=== PATIENT | male | born 1935 | race Caucasian/White ===

== ENCOUNTER → 2016-12-04 | Outpatient (CLI) | payer MEDICARE ==
[2015-11-11 18:08] VITALS: BP 173/85
[~2016-12-04] MED LIST: ACET325T9 PO; AMIO200T2 PO; AMLO5TAB2 PO; ASPI325T4 PO; CAPT50TA2 PO; DOCU100C5 PO; FAMO20TA5 PO; HYDR-2666 PO; HYDR25TA9 PO; MULT1TAB6 PO; OMEG1CAP6 PO; POTA20TA4 PO; SIMV20TA3 PO
[2016-12-04 05:54] LABS: ALBUMIN/GLOBULIN RATIO 1.3 (1.0-1.7); CALCIUM 9.1 mg/dL (8.5-10.1); CREATININE 0.9 mg/dL (0.7-1.3); GFR 80.6; POTASSIUM 3.7 mmol/L (3.5-5.1); TOTAL BILIRUBIN 0.5 mg/dL (0.2-1.0)
[2016-12-04 05:59] LABS: CHOLESTEROL/HDL RATIO 2.8
== END | disposition home or self-care (01) ==
LOC: LAB 04:48
PROVIDERS: ATTEND Family Medicine
DX: E78.5 Hyperlipidemia, unspecified (principal)
CPT/HCPCS: 36415; 80053; 80061; 83036

== ENCOUNTER → 2017-12-27 | Outpatient (CLI) | payer MEDICARE | END | disposition home or self-care (01) | LOC: ECHO 08:32 | DX: I48.0 Paroxysmal atrial fibrillation (principal); I08.0 Rheumatic disorders of both mitral and aortic valves; E78.5 Hyperlipidemia, unspecified | CPT/HCPCS: 93306 ==

== ENCOUNTER → 2019-01-02 | Outpatient (CLI) | payer MEDICARE ==
[2015-11-11 18:08] VITALS: BP 173/85
[~2019-01-02] MED LIST changes: -AMIO200T2 PO; +AMIO200T4 PO; +AMLO5TAB10 PO; -AMLO5TAB2 PO; -ASPI325T4 PO; +ASPI325T8 PO; +DOCU100C28 PO; -DOCU100C5 PO; +HYDR-2145 PO; -HYDR-2666 PO; +HYDR-2761 PO; -HYDR25TA9 PO; +ORPH100T PO
--- NOTE | 2019-01-02 12:33 | CARD ---
MR#: [id number] Date of Study: 01/02/2019 Ordering Physician: BAMBI TAY, Referring Physician: BAMBI TAY, Tech: Priscilla Marquez APPROVED REPORT EXAM: Two-dimensional and M-mode echocardiogram with Doppler and color Doppler. Other Information Quality : AverageHR: 65bpm INDICATION Atrial Fibrillation RISK FACTORS Hypertension Hyperlipidemia 2D DIMENSIONS Left Atrium(2D)3.7 (1.6-4.0cm)IVSd1.1 (0.7-1.1cm) Aortic Root(2D)3.0 (2.0-3.7cm)LVDd5.0 (3.9-5.9cm) LVOT Diameter2.0 (1.8-2.4cm)PWd1.5 (0.7-1.1cm) LVDs2.9 (2.5-4.0cm)FS (%) 42.3 % SV87.4 ml Aortic Valve AoV Peak Derek.133.3cm/sAoV VTI28.0cm AO Peak GR.7.1mmHgLVOT Peak Derek.114.2cm/s AO Mean GR.4mmHgAVA (VMAX)2.60cm2 Mitral Valve MV E Eiumbzhv06.7cm/sMV DECEL [id number] MV A Guyhbely52.0cm/sE/A Ratio0.7 Pulmonary Valve PV Peak Ohygfgvy80.6cm/s Pulmonary Vein S1 Tabzxzpf80.7cm/sD2 Ywgxyxzg09.1cm/s PVa [id number] LEFT VENTRICLE The left ventricle is normal size. There is mild concentric left ventricular hypertrophy. The left ve ntricular systolic function is normal. Left ventricular ejection fraction is 55-60%. There is normal LV segmental wall motion. Transmitral Doppler flow pattern is Grade I-abnormal relaxation pattern. RIGHT VENTRICLE The right ventricle is normal size. There is normal right ventricular wall thickness. The right ventr icular systolic function is normal. ATRIA The left atrium size is normal. The right atrium size is normal. The interatrial septum is intact wit h no evidence for an atrial septal defect or patent foramen ovale as noted on 2-D or Doppler imaging. AORTIC VALVE The aortic valve is thickened but opens well. Doppler and Color Flow revealed trace aortic regurgitat ion. There is no significant aortic valvular stenosis. MITRAL VALVE The mitral valve is normal in structure and function. There is no evidence of mitral valve prolapse. There is no mitral valve stenosis. Doppler and Color-flow revealed trace to mild mitral regurgitation . TRICUSPID VALVE The tricuspid valve is not well visualized. Doppler and Color Flow revealed no tricuspid valve regurg itation noted. There is no tricuspid valve stenosis. PULMONIC VALVE The pulmonic valve is not well visualized. Doppler and Color Flow revealed trace pulmonic valvular re gurgitation. GREAT VESSELS The aortic root is normal in size. The IVC was not visualized. PERICARDIAL EFFUSION There is no evidence of significant pericardial effusion. Critical Notification Critical Value: No <Conclusion> The left ventricle is normal size. The left ventricle is normal size. The left ventricular systolic function is normal. Left ventricular ejection fraction is 55-60%. There is mild concentric left ventricular hypertrophy. There is no significant aortic valvular stenosis. Doppler and Color Flow revealed trace aortic regurgitation. Doppler and Color-flow revealed trace to mild mitral regurgitation. Doppler and Color Flow revealed no tricuspid valve regurgitation noted. Signed by : Antwan Murillo MD Electronically Approved : 01/02/2019 12:33:03
== END | disposition home or self-care (01) ==
LOC: ECHO 09:58
PROVIDERS: ATTEND Internal Medicine Cardiovascular Disease
DX: I11.9 Hypertensive heart disease without heart failure (principal); I48.0 Paroxysmal atrial fibrillation; E78.5 Hyperlipidemia, unspecified
CPT/HCPCS: 93306

== ENCOUNTER 2019-01-03 19:22 | Emergency (ER) | payer MEDICARE ==
[~2019-01-03] VITALS: Ht 177.8 cm; Wt 74.8 kg
[~2019-01-03 19:22] MED LIST changes: -ORPH100T PO
[2019-01-03] MEDS ORDERED: fentaNYL PF VIAL 100 MCG/2 ML VIAL IV ONE (19:45)
[2019-01-03] MEDS ORDERED: ASPIRIN 325 MG TABLET PO ONE (19:45)
--- NOTE | 2019-01-03 19:50 | PHYS DOC ---
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 He reports that the pain was dull and minor in nature until tonight when he went to dinner and the pain increased and became sharp. He denies any trauma to that shoulder. He reports that he had left shoulder problems about a year ago and went to physical therapy those problems resolved. He also reports that the pain began to radiate to his neck and down his arm. He reports that he has a past medical history of hypertension and hypercholesterolemia. He also takes Tylenol and [place] regularly for back pain. He last took Tylenol about 2 hours ago and reports that he took [place] this morning. He denies any numbness or tingling in his left hand or elbow. Review of Systems Review of Systems Constitutional: Denies fever or chills [] Eyes: Denies change in visual acuity, redness, or eye pain [] HENT: Denies nasal congestion or sore throat [] Respiratory: Denies cough or shortness of breath [] Cardiovascular: Denies chest pain or palpitations [] GI: Denies abdominal pain, nausea, vomiting, and diarrhea [] : Denies dysuria or hematuria [] Musculoskeletal: Reports back pain and left shoulder pain Integument: Denies rash or skin lesions [] Neurologic: Denies headache, focal weakness or sensory changes [] Complete systems were reviewed and found to be within normal limits, except as documented in this note. Current Medications Current Medications Current Medications Medications (Trade) Dose Ordered Sig/Richi Start Time Stop Time Status Last Admin Dose Admin Acetaminophen/ Hydrocodone Bitart (Lortab 5/325) 1 tab 1X ONCE 01/03/19 22:00 01/03/19 22:01 DC 01/03/19 21:50 1 TAB Aspirin (Rhianna Aspirin) 325 mg 1X ONCE 01/03/19 19:45 01/03/19 19:46 DC Fentanyl Citrate (Fentanyl 2ml Vial) 50 mcg 1X ONCE 01/03/19 19:45 01/03/19 19:46 DC 01/03/19 20:30 50 MCG Allergies Allergies Allergies Coded Allergies Type Severity Reaction Last Updated Verified No Known Drug Allergies 08/29/13 No Physical Exam Physical Exam Constitutional: Well developed, well nourished, no acute distress, non-toxic appearance. [] HENT: Normocephalic, atraumatic, nose normal. [] Eyes: Conjunctiva normal, no discharge. [] Neck: Normal range of motion, no tenderness. [] Cardiovascular: Heart rate regular rhythm, no murmur [] Lungs & Thorax: Bilateral breath sounds clear to auscultation [] Abdomen: Bowel sounds normal, soft. [] Skin: Warm, dry, no erythema, no rash. [] Back: Chronic tenderness in the back Extremities: Tenderness to palpation in the left shoulder with decreased ROM, no gross deformities, no edema or erythema [] Neurologic: Alert and oriented X 3, no focal deficits noted. [] Psychologic: Affect normal, judgement normal, mood normal. [] Current Patient Data Vital Signs Vital Signs Date Time Temp Pulse Resp B/P (MAP) Pulse Ox O2 Delivery O2 Flow Rate FiO2 01/03/19 22:30 62 18 126/61 (82) 95 Room Air 01/03/19 19:34 97.6 97.6 Lab Values Laboratory Tests Test 01/03/19 19:42 01/03/19 22:00 White Blood Count 7.4 x10^3/uL (4.0-11.0) Red Blood Count 4.26 x10^6/uL (4.30-5.70) L Hemoglobin 13.7 g/dL (13.0-17.5) Hematocrit 40.7 % (39.0-53.0) Mean Corpuscular Volume 96 fL (79-100) Mean Corpuscular Hemoglobin 32 pg (25-35) Mean Corpuscular Hemoglobin Concent 34 g/dL (31-37) Red Cell Distribution Width 13.2 % (11.5-14.5) Platelet Count 162 x10^3/uL (140-400) Neutrophils (%) (Auto) 73 % (31-73) Lymphocytes (%) (Auto) 15 % (24-48) L Monocytes (%) (Auto) 9 % (0-9) Eosinophils (%) (Auto) 3 % (0-3) Basophils (%) (Auto) 0 % (0-3) Neutrophils # (Auto) 5.4 x10^3uL (1.8-7.7) Lymphocytes # (Auto) 1.1 x10^3/uL (1.0-4.8) Monocytes # (Auto) 0.6 x10^3/uL (0.0-1.1) Eosinophils # (Auto) 0.2 x10^3/uL (0.0-0.7) Basophils # (Auto) 0.0 x10^3/uL (0.0-0.2) Prothrombin Time 12.8 SEC (11.7-14.0) Prothrombin Time INR 1.0 (0.8-1.1) Sodium Level 139 mmol/L (136-145) Potassium Level 3.9 mmol/L (3.5-5.1) Chloride Level 103 mmol/L (98-107) Carbon Dioxide Level 25 mmol/L (21-32) Anion Gap 11 (6-14) Blood Urea Nitrogen 27 mg/dL (8-26) H Creatinine 1.1 mg/dL (0.7-1.3) Estimated GFR (Cockcroft-Gault) 63.6 BUN/Creatinine Ratio 25 (6-20) H Glucose Level 113 mg/dL (70-99) H Calcium Level 8.8 mg/dL (8.5-10.1) Magnesium Level 2.0 mg/dL (1.8-2.4) Total Bilirubin 0.3 mg/dL (0.2-1.0) Aspartate Amino Transferase (AST) 14 U/L (15-37) L Alanine Aminotransferase (ALT) 21 U/L (16-63) Alkaline Phosphatase 84 U/L (46-116) Creatine Kinase 50 U/L (39-308) Creatine Kinase MB (Mass) 1.7 ng/mL (0.0-3.6) Creatine Kinase MB Relative Index % (0-4) Troponin I Quantitative < 0.017 ng/mL (0.000-0.055) < 0.017 ng/mL (0.000-0.055) QN-Gdr-C-Type Natriuretic Peptide 51 pg/mL (0-449) Total Protein 6.5 g/dL (6.4-8.2) Albumin 3.7 g/dL (3.4-5.0) Albumin/Globulin Ratio 1.3 (1.0-1.7) Lipase 140 U/L (73-393) Laboratory Tests 01/03/19 19:42 Laboratory Tests 01/03/19 19:42 EKG EKG EKG @1927 Sinus rhythm, rate of 63 bpm, prolonged TN interval, right bundle branch block, no ST elevation Radiology/Procedures Radiology/Procedures 2 view right shoulder x-ray ED preliminary read shows arthritic changes consistent with chronic damage, no acute pathology PROCEDURE: SHOULDER 2+V LEFT EXAM: 3 views left shoulder DATE: 01/03/2019 7:42 PM INDICATION: ER PATIENT. LEFT SHOULDER PAIN X4 DAYS. NKI. NO PRIORS COMPARISON: No Prior FINDINGS/IMPRESSION Mild left AC joint osteoarthritis. Decreased bone mineral density. No evidence of acute fracture or dislocation. Electronically signed by: Adonis Ramirez MD (01/04/2019 6:02 AM) [facility] Course & Med Decision Making Course & Med Decision Making Pertinent Labs and Imaging studies reviewed. (See chart for details) Patient is an 83-year-old male is presenting with 1 week history of left shoulder pain. EKG and troponins within normal limits. Pain addressed. Preliminary read of left shoulder x-ray shows chronic arthritic changes. Discussed rest, ice, compression, and elevation management of arthritic pain and follow-up orthopedics if the pain does not go away. Patient stable for discharge with outpatient follow-up with PCP/Orthopedics. Discussed findings and plan with patient and family, who acknowledge understanding and agreement. Dragon Disclaimer Dragon Disclaimer This electronic medical record was generated, in whole or in part, using a voice recognition dictation system. Departure Departure Impression: Primary Impression: Shoulder pain, left Additional Impression: Arthritis Disposition: 01 HOME, SELF-CARE Condition: STABLE Referrals: DILEEP SORIA MD (PCP) GAVIN ALBERT MD Patient Instructions: Arthritis, Degenerative-Brief, Shoulder Pain, Easy-to- Read Scripts Orphenadrine Citrate (ORPHENADRINE CITRATE) 100 Mg Tablet.er 100 MG PO BID PRN for MUSCLE PAIN, #14 Prov: JULIANNE LINK DO 01/03/19 Problem Qualifiers Primary Impression: Shoulder pain, left Chronicity: unspecified Qualified Codes: M25.512 - Pain in left shoulder JULIANNE LINK DO Jan 03, 2019 19:50
[2019-01-03 19:53] LABS: BASO % 0 % (0-3); EOS # 0.2 x10^3/uL (0.0-0.7); EOS % 3 % (0-3); HEMATOCRIT 40.7 % (39.0-53.0); HEMOGLOBIN 13.7 g/dL (13.0-17.5); LYMPH # 1.1 x10^3/uL (1.0-4.8); LYMPH % 15 % (24-48); MEAN CORPUSCULAR HEMOGLOBIN 32 pg (25-35); MEAN CORPUSCULAR HGB CONC 34 g/dL (31-37); MEAN CORPUSCULAR VOLUME 96 fL (79-100); MONO # 0.6 x10^3/uL (0.0-1.1); MONO % 9 % (0-9); NEUT # 5.4 x10^3uL (1.8-7.7); NEUT % 73 % (31-73); PLATELET COUNT 162 x10^3/uL (140-400); RED BLOOD COUNT 4.26 x10^6/uL (4.30-5.70); RED CELL DISTRIBUTION WIDTH 13.2 % (11.5-14.5); WHITE BLOOD COUNT 7.4 x10^3/uL (4.0-11.0)
[2019-01-03 20:05] LABS: PROTHROMBIN TIME PATIENT 12.8 SEC (11.7-14.0)
[2019-01-03 20:15] LABS: CALCIUM 8.8 mg/dL (8.5-10.1); CREATININE 1.1 mg/dL (0.7-1.3); GFR 63.6; POTASSIUM 3.9 mmol/L (3.5-5.1)
[2019-01-03 20:19] LABS: ALBUMIN 3.7 g/dL (3.4-5.0); ALBUMIN/GLOBULIN RATIO 1.3 (1.0-1.7); TOTAL BILIRUBIN 0.3 mg/dL (0.2-1.0); TOTAL PROTEIN 6.5 g/dL (6.4-8.2)
[2019-01-03 20:22] LABS: CREATINE KINASE 50 U/L (39-308)
[2019-01-03] MEDS ORDERED: HYDROcodone/APAP 5/325MG 1 TAB TABLET PO ONE (22:00)
[2019-01-03 22:30] VITALS: BP 126/61
[2019-01-03] MEDS ORDERED: ORPH100T PO (22:45)
--- NOTE | 2019-01-04 06:06 | RAD ---
EXAM: 3 views left shoulder DATE: 01/03/2019 7:42 PM INDICATION: ER PATIENT. LEFT SHOULDER PAIN X4 DAYS. NKI. NO PRIORS COMPARISON: No Prior FINDINGS/IMPRESSION Mild left AC joint osteoarthritis. Decreased bone mineral density. No evidence of acute fracture or dislocation. Electronically signed by: Adonis Ramirez MD (01/04/2019 6:02 AM) [facility]
--- NOTE | 2019-01-04 14:47 | EKG ---
[facility] [address] [place] [address] Test Date: 2019-01-03 Test Time: 19:27:53 Pat Name: JEF SOTO Department: Room: Gender: M Health Tech: : 1935 Requested By: JULIANNE LINK Order Number: [id number] Reading MD: Alexsander Alonzo Measurements Intervals [place] Rate: 63 P: 30 VT: 228 QRS: -63 QRSD: 138 T: 16 QT: 478 QTc: 493 Interpretive Statements SINUS RHYTHM PROLONGED VT INTERVAL ABNORMAL LEFT AXIS DEVIATION LEFT ANTERIOR FASCICULAR BLOCK RIGHT BUNDLE BRANCH BLOCK BIFASCICULAR BLOCK ABNORMAL ECG Electronically Signed On 01-13-2019 12:35:01 CDT by Alexsander Alonzo
== END 2019-01-03 23:16 | disposition home or self-care (01) ==
LOC: ER 19:22
DX: M19.012 Primary osteoarthritis, left shoulder (principal); M54.2 Cervicalgia; I48.91 Unspecified atrial fibrillation; K21.9 Gastro-esophageal reflux disease without esophagitis; I10 Essential (primary) hypertension; E78.00 Pure hypercholesterolemia, unspecified
CPT/HCPCS: 36415; 73030; 80053; 82553; 83690; 83735; 83880; 84484; 85025; 85610; 93005; 96374; 99285; J3010

== ENCOUNTER 2020-09-18 21:33 | Inpatient (IN) | payer MEDICARE, OTHER ==
[~2020-09-18] VITALS: Ht 177.8 cm; Wt 77.7 kg
[~2020-09-18 21:33] MED LIST changes: -AMIO200T4 PO; +AMIO200T6 PO; +AMLO-186 PO; -AMLO5TAB10 PO; +FERR325T14 PO; +FINA5TAB4 PO; +FLUT9.9S NS; +LISI-130 PO; +ORPH100T PO; +PEG15DRO4 EACHEYE; +POLY17PO29 PO; +PRED20TA PO; +SIMV20TA18 PO; -SIMV20TA3 PO; +TAMS0.4C97 PO
--- NOTE | 2020-09-18 21:48 | PHYS DOC ---
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 Pain began about 4 PM today. Patient describes 10 out of 10 abdominal pain worse on the left side as well as lumbar back pain that is not as severe. Patient is extremely hard of hearing therefore history, physical review of systems are extremely difficult to obtain due to his inability to hear and answer questions Review of Systems: Review of Systems: Constitutional: Denies fever or chills. [] Eyes: Denies change in visual acuity. [] HENT: Denies nasal congestion or sore throat. [] Respiratory: Denies cough or shortness of breath. [] Cardiovascular: Denies chest pain or edema. [] GI: Complains abdominal pain and nausea but no vomiting, bloody stools or diarrhea. [] : Denies dysuria. [] Musculoskeletal: Complains of back pain but no joint pain. [] Integument: Denies rash. [] Neurologic: Denies headache, focal weakness or sensory changes. [] Endocrine: Denies polyuria or polydipsia. [] Lymphatic: Denies swollen glands. [] Psychiatric: Denies depression or anxiety. [] Heart Score: Risk Factors: Risk Factors: DM, Current or recent (<one month) smoker, HTN, HLP, family history of CAD, obesity. Risk Scores: Score 0 - 3: 2.5% MACE over next 6 weeks - Discharge Home Score 4 - 6: 20.3% MACE over next 6 weeks - Admit for Clinical Observation Score 7 - 10: 72.7% MACE over next 6 weeks - Early Invasive Strategies Current Medications: Current Medications Medications (Trade) Dose Ordered Sig/Richi Start Time Stop Time Status Last Admin Dose Admin Morphine Sulfate (Morphine Sulfate) 4 mg 1X ONCE 09/18/20 21:45 09/18/20 21:46 UNV Ondansetron HCl (Zofran) 4 mg 1X ONCE 09/18/20 21:45 09/18/20 21:46 UNV Allergies: Allergies: Allergies Coded Allergies Type Severity Reaction Last Updated Verified No Known Drug Allergies 08/29/13 No Physical Exam: PE: Constitutional: Well developed, well nourished, mild distress due to pain HENT: Normocephalic, atraumatic, bilateral external ears normal, no trismus nose normal. [] Eyes: PERRLA, EOMI, conjunctiva normal, no discharge. [] Neck: Normal range of motion, no tenderness, supple, no stridor. [] Cardiovascular:Heart rate regular rhythm, peripheral pulse intact cap refill is brisk Lungs & Thorax: Bilateral breath sounds clear to auscultation [] Abdomen: Soft with tenderness in the left side without guarding or rebound possible distended bladder no pulsatile masses. [] exam: Hanna in place with purulent drainage and hypospadias Skin: Warm, dry, no erythema, no rash. [] Back: No tenderness, no CVA tenderness. [] Extremities: No tenderness, no cyanosis, no clubbing, ROM intact, no edema. [] Neurologic: Alert and oriented X 3, normal motor function, normal sensory function, no focal deficits noted. [] Psychologic: Affect normal, judgement normal, mood normal. [] Current Patient Data: Labs: Laboratory Tests Test 09/18/20 21:50 09/18/20 22:45 White Blood Count 18.4 x10^3/uL Red Blood Count 4.39 x10^6/uL Hemoglobin 12.7 g/dL Hematocrit 38.7 % Mean Corpuscular Volume 88 fL Mean Corpuscular Hemoglobin 29 pg Mean Corpuscular Hemoglobin Concent 33 g/dL Red Cell Distribution Width 15.6 % Platelet Count 260 x10^3/uL Neutrophils (%) (Auto) 91 % Lymphocytes (%) (Auto) 3 % Monocytes (%) (Auto) 5 % Eosinophils (%) (Auto) 0 % Basophils (%) (Auto) 0 % Neutrophils # (Auto) 16.8 x10^3/uL Lymphocytes # (Auto) 0.6 x10^3/uL Monocytes # (Auto) 1.0 x10^3/uL Eosinophils # (Auto) 0.0 x10^3/uL Basophils # (Auto) 0.0 x10^3/uL Segmented Neutrophils % 94 % Band Neutrophils % 1 % Lymphocytes % 3 % Monocytes % 2 % Toxic Granulation Mod Platelet Estimate Adequate Sodium Level 135 mmol/L Potassium Level 3.8 mmol/L Chloride Level 100 mmol/L Carbon Dioxide Level 22 mmol/L Anion Gap 13 Blood Urea Nitrogen 46 mg/dL Creatinine 1.3 mg/dL Estimated GFR (Cockcroft-Gault) 52.2 BUN/Creatinine Ratio 35 Glucose Level 162 mg/dL Lactic Acid Level 1.1 mmol/L Calcium Level 9.0 mg/dL Total Bilirubin 0.5 mg/dL Aspartate Amino Transf (AST/SGOT) 22 U/L Alanine Aminotransferase (ALT/SGPT) 32 U/L Alkaline Phosphatase 116 U/L Total Protein 6.6 g/dL Albumin 2.7 g/dL Albumin/Globulin Ratio 0.7 Lipase 52 U/L Urine Collection Type U cath Urine Color Nia Urine Clarity Turbid Urine pH 8.5 Urine Specific [place] 1.025 Urine Protein >=300 mg/dL Urine Glucose (UA) Negative mg/dL Urine Ketones (Stick) Negative mg/dL Urine Blood Negative Urine Nitrite Positive Urine Bilirubin Negative Urine Urobilinogen Dipstick 1.0 mg/dL Urine Leukocyte Esterase Large Urine RBC 6-10 /HPF Urine WBC Tntc /HPF Urine Squamous Epithelial Cells None /LPF Urine Amorphous Sediment Present /HPF Urine Bacteria Many /HPF Urine Granular Casts Occasional /HPF Current Medications Medications (Trade) Dose Ordered Sig/Richi Route PRN Reason Start Time Stop Time Status Last Admin Dose Admin Morphine Sulfate (Morphine Sulfate) 4 mg 1X ONCE IV 09/18/20 22:00 09/18/20 22:01 DC 09/18/20 22:10 Ondansetron HCl (Zofran) 4 mg 1X ONCE IVP 09/18/20 22:00 09/18/20 22:01 DC 09/18/20 22:10 Lorazepam (Ativan Inj) 1 mg 1X ONCE IVP 09/18/20 22:30 09/18/20 22:35 DC 09/18/20 22:29 Iohexol (Omnipaque 300 Mg/ml) 60 ml 1X ONCE IV 09/18/20 22:45 09/18/20 22:46 DC 09/18/20 23:15 Info (CONTRAST GIVEN -- Rx MONITORING) 1 each PRN DAILY PRN MC SEE COMMENTS 09/18/20 22:45 09/20/20 22:44 Piperacillin Sod/ Tazobactam Sod 3.375 gm/Sodium Chloride 50 ml @ 100 mls/hr 1X ONCE IV 09/18/20 23:30 09/18/20 23:59 DC Sodium Chloride 1,000 ml @ 1,000 mls/hr 1X ONCE IV 09/19/20 00:15 09/19/20 01:14 Vital Signs: Vital Signs Date Time Temp Pulse Resp B/P (MAP) Pulse Ox O2 Delivery O2 Flow Rate FiO2 09/18/20 22:10 98 09/18/20 21:40 98.5 88 20 136/63 (87) 95 Room Air 98.5 EKG: EKG: [] EKG interpreted by me normal sinus rhythm with rate of 93 left axis deviation, left anterior hemiblock, right bundle branch block, nonspecific ST changes, QTC of 473 first-degree AV block Radiology/Procedures: Radiology/Procedures: [][facility] [address] [place] [address] IMAGING REPORT Signed PATIENT: JEF SOTO ACCOUNT: [id number] : 1935 LOCATION: ER AGE: 85 SEX: M EXAM STATUS: REG ER ORD. PHYSICIAN: VINCENT CHAPA MD REASON: ABD PAIN, OMNI 300, 60 ML IV PROCEDURE: CT ABD PELV W/ IV CONTRST ONLY Exam: CT of abdomen and pelvis with contrast INDICATION: Abdominal pain TECHNIQUE: Sequential axial images through the abdomen and pelvis obtained following the administration of 60 mL of Omni 300 IV contrast. Sagittal and coronal reformatted images were reconstructed from the axial data and reviewed. Comparisons: None FINDINGS: Heart size is normal. No pericardial effusion. Visualized lung bases are clear. No pleural effusion. Liver, spleen, pancreas are unremarkable. There is a 1.8 cm nodule in the medial limb of the right adrenal gland. Gallstone noted at the neck of the gallbladder. Kidneys demonstrate symmetric enhancement. There is moderate bilateral hydronephrosis. No obstructing stone identified. Bladder is distended with a Hanna balloon noted within the bladder. Prostate is not enlarged. Large and small bowel are unremarkable. Appendix is nonidentified. No free intra-abdominal air or fluid. No obstruction. Abdominal aorta has a normal course and caliber. Abdominal vasculature is patent. No enlarged intra-abdominal lymph nodes are identified. There is a sclerotic lesion involving the right pubic symphysis. IMPRESSION: 1. Distended bladder with moderate bilateral hydronephrosis. Findings are concerning for bladder outlet obstruction. Hanna is noted within the bladder. Correlate for Hanna dysfunction. 2. Cholelithiasis. 3. A 1.8 cm nodule in the right adrenal gland, incompletely characterized on this exam. This can be better evaluated with nonemergent adrenal protocol CT or MRI. 4. Sclerotic lesion at the right pubic symphysis. Correlate with malignancy history. Exposure: One or more of the following in the visualized dose reduction techniques were utilized for this examination: 1. Automated exposure control 2. Adjustment of the MA and/or KV according to patient size 3. Use of iterative of reconstructive technique Electronically signed by: Pablito Grant MD (09/18/2020 11:30 PM) [facility] DICTATED and SIGNED BY: PABLITO GRANT MD DATE: 09/18/20 [id number] 0 Course & Med Decision Making: Course & Med Decision Making Pertinent Labs and Imaging studies reviewed. (See chart for details) [] 85-year-old male arrives via EMS with a chief complaint of back pain abdominal pain. CT was done which reveals a bladder outlet obstruction. The patient's Hanna catheter was replaced and there is purulent material noted. Later on in his stay patient became more tachycardic and developed a low-grade fever. Cultures were then ordered and patient given fluids and IV antibiotics. Patient was able to have adequate drain his bladder after new Hanna was placed. Pain is improved. Patient need to be admitted for IV antibiotics. Dr. Navas be admitting physician. Darwin Disclaimer: Darwin Disclaimer: This electronic medical record was generated, in whole or in part, using a voice recognition dictation system. Departure Departure Impression: Primary Impression: Pyelonephritis Additional Impressions: Bladder outlet obstruction Abdominal pain Back pain Azotemia Disposition: 09 ADMITTED INPT THIS HOSP Admitting Physician: MABEL (HOLLEY) Condition: STABLE Referrals: DILEEP SORIA MD (PCP) VINCENT CHAPA MD Sep 18, 2020 21:48
[2020-09-18] MEDS ORDERED: MORPHINE SULFATE 4 MG/ML VIAL. IV ONE (22:00)
[2020-09-18] MEDS ORDERED: ONDANSETRON PF 4 MG/2 ML VIAL. IVP ONE (22:00)
[2020-09-18 22:02] LABS: BASO % 0 % (0-3); EOS % 0 % (0-3); HEMATOCRIT 38.7 % (39.0-53.0); HEMOGLOBIN 12.7 g/dL (13.0-17.5); LYMPH # 0.6 x10^3/uL (1.0-4.8); LYMPH % 3 % (24-48); MEAN CORPUSCULAR HEMOGLOBIN 29 pg (25-35); MEAN CORPUSCULAR HGB CONC 33 g/dL (31-37); MEAN CORPUSCULAR VOLUME 88 fL (79-100); MONO % 5 % (0-9); NEUT # 16.8 x10^3/uL (1.8-7.7); NEUT % 91 % (31-73); PLATELET COUNT 260 x10^3/uL (140-400); RED BLOOD COUNT 4.39 x10^6/uL (4.30-5.70); RED CELL DISTRIBUTION WIDTH 15.6 % (11.5-14.5); WHITE BLOOD COUNT 18.4 x10^3/uL (4.0-11.0)
[2020-09-18 22:10] LABS: CREATININE 1.3 mg/dL (0.7-1.3); GFR 52.2; POTASSIUM 3.8 mmol/L (3.5-5.1)
[2020-09-18 22:16] LABS: ALBUMIN 2.7 g/dL (3.4-5.0); ALBUMIN/GLOBULIN RATIO 0.7 (1.0-1.7); TOTAL BILIRUBIN 0.5 mg/dL (0.2-1.0); TOTAL PROTEIN 6.6 g/dL (6.4-8.2)
[2020-09-18 22:22] LABS: % BANDS 1 % (0-9); % LYMPHS 3 % (24-48); % MONOS 2 % (0-10); % SEGS 94 % (35-66); PLT ESTIMATE ADEQUATE (ADEQUATE)
[2020-09-18 22:23] LABS: TOXIC GRANULATION MOD
[2020-09-18] MEDS ORDERED: CONTRAST GIVEN. MC PRN (22:45)
[2020-09-18] MEDS ORDERED: IOHEXOL 300 MG/ML 100ML VIAL. IV ONE (22:45)
[2020-09-18 22:55] LABS: BILIRUBIN,URINE NEGATIVE (NEG); CLARITY,URINE TURBID; COLOR,URINE AMBER; NITRITE,URINE POSITIVE (NEG); PH,URINE 8.5 (<5.0-8.0); PROTEIN,URINE >=300 mg/dL (NEG-TRACE)
[2020-09-18 23:02] LABS: BACTERIA,URINE MANY /HPF (0-FEW); WBC,URINE TNTC /HPF (0-4)
[2020-09-18 23:03] LABS: AMORPHOUS SEDIMENT,UR PRESENT /HPF; GRANULAR CASTS,URINE OCCASIONAL /HPF
[2020-09-18] MEDS ORDERED: PIPERACILLIN/TAZOBACTAM 3.375 GM in IV NORMAL SALINE 50ML 50 ML IV ONE (23:30)
--- NOTE | 2020-09-18 23:33 | RAD ---
Exam: CT of abdomen and pelvis with contrast INDICATION: Abdominal pain TECHNIQUE: Sequential axial images through the abdomen and pelvis obtained following the administrati on of 60 mL of Omni 300 IV contrast. Sagittal and coronal reformatted images were reconstructed from the axial data and reviewed. Comparisons: None FINDINGS: Heart size is normal. No pericardial effusion. Visualized lung bases are clear. No pleural effusion. Liver, spleen, pancreas are unremarkable. There is a 1.8 cm nodule in the medial limb of the right ad renal gland. Gallstone noted at the neck of the gallbladder. Kidneys demonstrate symmetric enhancement. There is moderate bilateral hydronephrosis. No obstructing stone identified. Bladder is distended with a Hanna balloon noted within the bladder. Prostate is not enlarged. Large and small bowel are unremarkable. Appendix is nonidentified. No free intra-abdominal air or flu id. No obstruction. Abdominal aorta has a normal course and caliber. Abdominal vasculature is patent. No enlarged intra-abdominal lymph nodes are identified. There is a sclerotic lesion involving the right pubic symphysis. IMPRESSION: 1. Distended bladder with moderate bilateral hydronephrosis. Findings are concerning for bladder out let obstruction. Hanna is noted within the bladder. Correlate for Hanna dysfunction. 2. Cholelithiasis. 3. A 1.8 cm nodule in the right adrenal gland, incompletely characterized on this exam. This can be better evaluated with nonemergent adrenal protocol CT or MRI. 4. Sclerotic lesion at the right pubic symphysis. Correlate with malignancy history. Exposure: One or more of the following in the visualized dose reduction techniques were utilized for this examination: 1. Automated exposure control 2. Adjustment of the MA and/or KV according to patient size 3. Use of iterative of reconstructive technique Electronically signed by: Pablito Goldstein MD (09/18/2020 11:30 PM) [facility]
[2020-09-19] VITALS (16 sets, daily range): BP systolic 65–114; BP diastolic 38–61
[2020-09-19] MEDS ORDERED: IV NORMAL SALINE 1000ML BAG 1,000 ML IV ONE ×2 (00:15→00:30)
[2020-09-19 00:18] LABS: BILIRUBIN,URINE NEGATIVE (NEG); CLARITY,URINE TURBID; COLOR,URINE AMBER; NITRITE,URINE POSITIVE (NEG); PH,URINE 8.5 (<5.0-8.0); PROTEIN,URINE 100 mg/dL (NEG-TRACE)
[2020-09-19 00:22] LABS: AMORPHOUS SEDIMENT,UR PRESENT /HPF; BACTERIA,URINE MANY /HPF (0-FEW); WBC,URINE TNTC /HPF (0-4)
[2020-09-19 00:23] LABS: GRANULAR CASTS,URINE OCCASIONAL /HPF; HYALINE CASTS, URINE OCCASIONAL /HPF
[2020-09-19] MEDS ORDERED: ONDANSETRON PF 4 MG/2 ML VIAL. IV PRN ×2 (00:30→06:15)
[2020-09-19] MEDS ORDERED: PIP/TAZO PER PHARMACY MC PRN (06:15)
[2020-09-19] MEDS ORDERED: guaiFENesin ORAL 200 MG/10 ML LIQUID. PO PRN (06:15)
[2020-09-19] MEDS ORDERED: DOCUSATE SODIUM 100 MG CAPSULE. PO PRN ×2 (06:15→12:00)
[2020-09-19] MEDS ORDERED: PIPERACILLIN/TAZOBACTAM 3.375 GM in IV NORMAL SALINE 50ML 50 ML IV ONE (07:30)
[2020-09-19] MEDS ORDERED: NOREPINEPHRINE VIAL 8 MG in IV DEXTROSE 5% 250 ML IV ONE (08:30)
--- NOTE | 2020-09-19 09:13 | PDOC1 ---
History and Physical Date of Service: DOS: DATE: 09/19/20 TIME: 09:09 Chief Complaint: Chief Complain: Abdominal back pain History of Present Illness: HPI: 85 year old male with past medical history of atrial fibrillation, GERD, dyslipidemia, hypertension who arrives via EMS with a chief complaint of abdominal pain and back pain. Pain began about 4 PM today. Patient describes 10 out of 10 abdominal pain worse on the left side as well as lumbar back pain that is not as severe. Patient is extremely hard of hearing therefore history, physical review of systems are extremely difficult to obtain due to his inability to hear and answer questions. Patient daughter states that patient does have a Hanna that is indwelling and she is unsure when it was exchanged or flushed. 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,BACK SURG,CARPAL TUNNEL Allergies: Allergies: Coded Allergies: No Known Drug Allergies (Unverified , 08/29/13) Family History: Family History: Reviewed with no relevant findings Social History: Social History: Smoking Status: Never Smoker Alcohol Use: None Drug Use: None Current Medications: Current Medications Current Medications Morphine Sulfate (Morphine Sulfate) 4 mg 1X ONCE IV Last administered on 09/18/20at 22:10; Start 09/18/20 at 22:00; Stop 09/18/20 at 22:01; Status DC Ondansetron HCl (Zofran) 4 mg 1X ONCE IVP Last administered on 09/18/20at 22:10; Start 09/18/20 at 22:00; Stop 09/18/20 at 22:01; Status DC Lorazepam (Ativan Inj) 1 mg 1X ONCE IVP Last administered on 09/18/20at 22:29; Start 09/18/20 at 22:30; Stop 09/18/20 at 22:35; Status DC Iohexol (Omnipaque 300 Mg/ml) 60 ml 1X ONCE IV Last administered on 09/18/20at 23:15; Start 09/18/20 at 22:45; Stop 09/18/20 at 22:46; Status DC Info (CONTRAST GIVEN -- Rx MONITORING) 1 each PRN DAILY PRN MC SEE COMMENTS; Start 09/18/20 at 22:45; Stop 09/20/20 at 22:44 Piperacillin Sod/ Tazobactam Sod 3.375 gm/Sodium Chloride 50 ml @ 100 mls/hr 1X ONCE IV Last administered on 09/19/20at 00:32; Start 09/18/20 at 23:30; Stop 09/18/20 at 23:59; Status DC Sodium Chloride 1,000 ml @ 1,000 mls/hr 1X ONCE IV Last administered on 09/19/20at 00:32; Start 09/19/20 at 00:15; Stop 09/19/20 at 01:14; Status DC Ondansetron HCl (Zofran) 4 mg PRN Q8HRS PRN IV NAUSEA/VOMITING; Start 09/19/20 at 00:30; Stop 09/20/20 at 00:29 Sodium Chloride 1,000 ml @ 125 mls/hr 1X ONCE IV Last administered on 09/19/20at 01:37; Start 09/19/20 at 00:30; Stop 09/19/20 at 08:29; Status DC Olanzapine (ZyPREXA ZYDIS) 5 mg PRN BID PRN PO ANXIETY / AGITATION; Start 09/19/20 at 06:15 Psyllium Hydrophilic Mucilloid (Metamucil Fiber Packet) 1 pkt QHS PO ; Start 09/19/20 at 21:00 Piperacillin Sod/ Tazobactam Sod 3.375 gm/Sodium Chloride 50 ml @ 100 mls/hr Q6HRS IV ; Start 09/19/20 at 12:00 Piperacillin Sod/ Tazobactam Sod (Zosyn Per Pharmacy) 1 each PRN DAILY PRN MC SEE COMMENTS; Start 09/19/20 at 06:15 Sodium Chloride 1,000 ml @ 100 mls/hr Q10H IV ; Start 09/19/20 at 06:15 Ondansetron HCl (Zofran) 4 mg PRN Q4HRS PRN IV NAUSEA/VOMITING; Start 09/19/20 at 06:15 Acetaminophen (Tylenol) 650 mg PRN Q4HRS PRN PO TEMP OVER 100.4F OR MILD PAIN; Start 09/19/20 at 06:15 Docusate Sodium (Colace) 100 mg PRN BID PRN PO HARD STOOLS; Start 09/19/20 at 06:15 Guaifenesin (Robitussin) 200 mg PRN Q4HRS PRN PO COUGH; Start 09/19/20 at 06:15 Piperacillin Sod/ Tazobactam Sod 3.375 gm/Sodium Chloride 50 ml @ 100 mls/hr ONCE ONCE IV Last administered on 09/19/20at 07:45; Start 09/19/20 at 07:30; Stop 09/19/20 at 07:59; Status DC Norepinephrine Bitartrate 8 mg/ Dextrose 258 ml @ 17.589 mls/ hr ONCE ONCE IV Last administered on 09/19/20at 08:27; Start 09/19/20 at 08:30; Stop 09/19/20 at 23:10 Norepinephrine Bitartrate 8 mg/ Dextrose 258 ml @ 17.589 mls/ hr CONT PRN IV PER PROTOCOL; Start 09/19/20 at 10:00 Active Scripts Active Prednisone 20 Mg Tablet 1 Tab PO DAILY 2 tablets daily for 5 days, then 1 tablet daily for 5 days, then stop. Reported Flomax (Tamsulosin Hcl) 0.4 Mg Cap.er.24h 1 Cap PO DAILY Famotidine 20 Mg Tablet 20 Mg PO BID Miralax (Polyethylene Glycol 3350) 17 Gm Powd.pack 1 Packet PO DAILY PRN 2 Days dissolve in water Lisinopril 40 Mg Tablet 1 Tab PO DAILY Flonase Allergy Relief (Fluticasone Propionate) 9.9 Ml [place].susp 1 Sprays NS DAILY PRN Finasteride 5 Mg Tablet 1 Tab PO DAILY Ferrous Sulfate 325 Mg Tablet 1 Tab PO DAILY Artificial Tears Drops (Peg 400/Hypromellose/Glycerin) 15 Ml Drops 2 Drop EACHEYE QID PRN 30 Days Hydrocodone-Apap 5-325 (Hydrocodone Bit/Acetaminophen) 1 Each Tablet 1 Tab PO PRN Q6HRS PRN Tylenol (Acetaminophen) 325 Mg Tablet 500 Mg PO PRN Q6HRS PRN Centrum Complete Multivit Tab (Multivitamin/Iron/Folic Acid) 1 Each Tablet 1 Each PO DAILY Aspirin 325 Mg Tablet 1 Tab PO DAILY Docusate Sodium 100 Mg Capsule 100 Mg PO TID Hydrochlorothiazide Tablet (Hydrochlorothiazide) 25 Mg Tablet 1 Tab PO DAILY Amlodipine Besylate 5 Mg Tablet 5 Mg PO DAILY Klor-Con M20 (Potassium Chloride) 20 Meq Tab.er.prt 1 Tab PO BID Amiodarone Hcl 200 Mg Tablet 1 Tab PO DAILY Simvastatin 20 Mg Tablet 1 Tab PO QHS ROS: Review of Systems Unable to obtain due to severe dementia Physical Exam: Vital Signs: Vital Signs Date Time Temp Pulse Resp B/P (MAP) Pulse Ox O2 Delivery O2 Flow Rate FiO2 09/19/20 06:49 80 24 90/53 (65) 93 Room Air 09/18/20 21:40 98.5 98.5 Physcial Exam: GEN: Alert and awake. Minimally responsive to sternal rub and moaning. HEENT: Normal cephalic, atraumatic, external auditory canals are patent EYES: Extraocular muscles are intact, pupil are equally round and reactive to light and accommodation MUSCULOSKELETAL: Well developed , well nourished, good range of motion ENDOCRINE: No thyromegaly was palpated LYMPHATICS: No cervical chain or axillary nodes were noted HEMATOPOIETIC: No bruising NECK: Supple, no JVD, no thyromegaly was noted LUNGS: Clear to auscultation in all lung ramires without rhonchi or wheezing HEART: RRR, S!, S2 present. Peripheral pulses intact, no obvious murmurs noted ABDOMEN: Soft, nontender. Positive bowel sounds, no organomegaly, normal bowel sounds EXTREMITIES: Without clubbing, cyanosis, or edema. Pedal pulses intact. Negative Homans sign NEUROLOGIC: Normal speech and tone. A&O x 3, moves all extremities, no obvious focal deficits PSYCHIATRIC: Normal affect, normal mood. Stable SKIN: No ulcerations or rashes, good skin turgor, no jaundice VASCULAR: Good capillary refill, neurovascular bundle appears to be intact Labs: Labs: Laboratory Tests Test 09/18/20 21:50 09/18/20 22:45 09/18/20 23:55 White Blood Count 18.4 x10^3/uL (4.0-11.0) Red Blood Count 4.39 x10^6/uL (4.30-5.70) Hemoglobin 12.7 g/dL (13.0-17.5) Hematocrit 38.7 % (39.0-53.0) Mean Corpuscular Volume 88 fL (79-100) Mean Corpuscular Hemoglobin 29 pg (25-35) Mean Corpuscular Hemoglobin Concent 33 g/dL (31-37) Red Cell Distribution Width 15.6 % (11.5-14.5) Platelet Count 260 x10^3/uL (140-400) Neutrophils (%) (Auto) 91 % (31-73) Lymphocytes (%) (Auto) 3 % (24-48) Monocytes (%) (Auto) 5 % (0-9) Eosinophils (%) (Auto) 0 % (0-3) Basophils (%) (Auto) 0 % (0-3) Neutrophils # (Auto) 16.8 x10^3/uL (1.8-7.7) Lymphocytes # (Auto) 0.6 x10^3/uL (1.0-4.8) Monocytes # (Auto) 1.0 x10^3/uL (0.0-1.1) Eosinophils # (Auto) 0.0 x10^3/uL (0.0-0.7) Basophils # (Auto) 0.0 x10^3/uL (0.0-0.2) Segmented Neutrophils % 94 % (35-66) Band Neutrophils % 1 % (0-9) Lymphocytes % 3 % (24-48) Monocytes % 2 % (0-10) Toxic Granulation Mod Platelet Estimate Adequate (ADEQUATE) Sodium Level 135 mmol/L (136-145) Potassium Level 3.8 mmol/L (3.5-5.1) Chloride Level 100 mmol/L (98-107) Carbon Dioxide Level 22 mmol/L (21-32) Anion Gap 13 (6-14) Blood Urea Nitrogen 46 mg/dL (8-26) Creatinine 1.3 mg/dL (0.7-1.3) Estimated GFR (Cockcroft-Gault) 52.2 BUN/Creatinine Ratio 35 (6-20) Glucose Level 162 mg/dL (70-99) Lactic Acid Level 1.1 mmol/L (0.4-2.0) Calcium Level 9.0 mg/dL (8.5-10.1) Total Bilirubin 0.5 mg/dL (0.2-1.0) Aspartate Amino Transf (AST/SGOT) 22 U/L (15-37) Alanine Aminotransferase (ALT/SGPT) 32 U/L (16-63) Alkaline Phosphatase 116 U/L (46-116) Total Protein 6.6 g/dL (6.4-8.2) Albumin 2.7 g/dL (3.4-5.0) Albumin/Globulin Ratio 0.7 (1.0-1.7) Lipase 52 U/L (73-393) Urine Collection Type U cath U cath Urine Color Nia Nia Urine Clarity Turbid Turbid Urine pH 8.5 (<5.0-8.0) 8.5 (<5.0-8.0) Urine Specific [place] 1.025 (1.000-1.030) 1.020 (1.000-1.030) Urine Protein >=300 mg/dL (NEG-TRACE) 100 mg/dL (NEG-TRACE) Urine Glucose (UA) Negative mg/dL (NEG) Negative mg/dL (NEG) Urine Ketones (Stick) Negative mg/dL (NEG) Negative mg/dL (NEG) Urine Blood Negative (NEG) Moderate (NEG) Urine Nitrite Positive (NEG) Positive (NEG) Urine Bilirubin Negative (NEG) Negative (NEG) Urine Urobilinogen Dipstick 1.0 mg/dL (0.2 mg/dL) 1.0 mg/dL (0.2 mg/dL) Urine Leukocyte Esterase Large (NEG) Large (NEG) Urine RBC 6-10 /HPF (0-2) 11-20 /HPF (0-2) Urine WBC Tntc /HPF (0-4) Tntc /HPF (0-4) Urine Squamous Epithelial Cells None /LPF None /LPF Urine Amorphous Sediment Present /HPF Present /HPF Urine Bacteria Many /HPF (0-FEW) Many /HPF (0-FEW) Urine Granular Casts Occasional /HPF Occasional /HPF Urine Hyaline Casts Occasional /HPF Urine Mucus Marked /LPF Laboratory Tests Test 09/18/20 21:50 09/18/20 22:45 09/18/20 23:55 White Blood Count 18.4 x10^3/uL (4.0-11.0) Red Blood Count 4.39 x10^6/uL (4.30-5.70) Hemoglobin 12.7 g/dL (13.0-17.5) Hematocrit 38.7 % (39.0-53.0) Mean Corpuscular Volume 88 fL (79-100) Mean Corpuscular Hemoglobin 29 pg (25-35) Mean Corpuscular Hemoglobin Concent 33 g/dL (31-37) Red Cell Distribution Width 15.6 % (11.5-14.5) Platelet Count 260 x10^3/uL (140-400) Neutrophils (%) (Auto) 91 % (31-73) Lymphocytes (%) (Auto) 3 % (24-48) Monocytes (%) (Auto) 5 % (0-9) Eosinophils (%) (Auto) 0 % (0-3) Basophils (%) (Auto) 0 % (0-3) Neutrophils # (Auto) 16.8 x10^3/uL (1.8-7.7) Lymphocytes # (Auto) 0.6 x10^3/uL (1.0-4.8) Monocytes # (Auto) 1.0 x10^3/uL (0.0-1.1) Eosinophils # (Auto) 0.0 x10^3/uL (0.0-0.7) Basophils # (Auto) 0.0 x10^3/uL (0.0-0.2) Segmented Neutrophils % 94 % (35-66) Band Neutrophils % 1 % (0-9) Lymphocytes % 3 % (24-48) Monocytes % 2 % (0-10) Toxic Granulation Mod Platelet Estimate Adequate (ADEQUATE) Sodium Level 135 mmol/L (136-145) Potassium Level 3.8 mmol/L (3.5-5.1) Chloride Level 100 mmol/L (98-107) Carbon Dioxide Level 22 mmol/L (21-32) Anion Gap 13 (6-14) Blood Urea Nitrogen 46 mg/dL (8-26) Creatinine 1.3 mg/dL (0.7-1.3) Estimated GFR (Cockcroft-Gault) 52.2 BUN/Creatinine Ratio 35 (6-20) Glucose Level 162 mg/dL (70-99) Lactic Acid Level 1.1 mmol/L (0.4-2.0) Calcium Level 9.0 mg/dL (8.5-10.1) Total Bilirubin 0.5 mg/dL (0.2-1.0) Aspartate Amino Transf (AST/SGOT) 22 U/L (15-37) Alanine Aminotransferase (ALT/SGPT) 32 U/L (16-63) Alkaline Phosphatase 116 U/L (46-116) Total Protein 6.6 g/dL (6.4-8.2) Albumin 2.7 g/dL (3.4-5.0) Albumin/Globulin Ratio 0.7 (1.0-1.7) Lipase 52 U/L (73-393) Urine Collection Type U cath U cath Urine Color Nia Nia Urine Clarity Turbid Turbid Urine pH 8.5 (<5.0-8.0) 8.5 (<5.0-8.0) Urine Specific [place] 1.025 (1.000-1.030) 1.020 (1.000-1.030) Urine Protein >=300 mg/dL (NEG-TRACE) 100 mg/dL (NEG-TRACE) Urine Glucose (UA) Negative mg/dL (NEG) Negative mg/dL (NEG) Urine Ketones (Stick) Negative mg/dL (NEG) Negative mg/dL (NEG) Urine Blood Negative (NEG) Moderate (NEG) Urine Nitrite Positive (NEG) Positive (NEG) Urine Bilirubin Negative (NEG) Negative (NEG) Urine Urobilinogen Dipstick 1.0 mg/dL (0.2 mg/dL) 1.0 mg/dL (0.2 mg/dL) Urine Leukocyte Esterase Large (NEG) Large (NEG) Urine RBC 6-10 /HPF (0-2) 11-20 /HPF (0-2) Urine WBC Tntc /HPF (0-4) Tntc /HPF (0-4) Urine Squamous Epithelial Cells None /LPF None /LPF Urine Amorphous Sediment Present /HPF Present /HPF Urine Bacteria Many /HPF (0-FEW) Many /HPF (0-FEW) Urine Granular Casts Occasional /HPF Occasional /HPF Urine Hyaline Casts Occasional /HPF Urine Mucus Marked /LPF Images: Images CT ABD/PELVIS IMPRESSION: 1. Distended bladder with moderate bilateral hydronephrosis. Findings are concerning for bladder outlet obstruction. Hanna is noted within the bladder. Correlate for Hanna dysfunction. 2. Cholelithiasis. 3. A 1.8 cm nodule in the right adrenal gland, incompletely characterized on this exam. This can be better evaluated with nonemergent adrenal protocol CT or MRI. 4. Sclerotic lesion at the right pubic symphysis. Correlate with malignancy history. Assessment/Plan Assessment/Plan Sepsis due to UTI Hemodynamic instability Acute UTI secondary to bladder outlet obstruction Chronic indwelling Hanna Bilateral hydronephrosis 1.8 cm right adrenal incidentaloma Cholelithiasis Reactive leukocytosis Normocytic anemia due to chronic inflammatory disease Hyponatremia Prerenal azotemia Severe protein malnutrition Elevated troponins Admit to ICU for further management Exchange Hanna catheter and flushed appropriately Continue empiric IV antibiotics Pending blood and urine cultures Judicious IV fluids Continue Levophed for vasopressor support map goal of 65 Strict I's and O's A.m. cortisol level and TSH Repeat troponin in 3 hours Heparin for DVT prophylaxis Protonix GI prophylaxis ADA diet Full code Discussed with RN and SW Disposition inpatient management as above Surrogate decision maker is the daughter A total of 60 minutes of critical care time was spent in reviewing chart, labs, and images. Discussed with RN and SW. Advance care planning: A total time of > 17 minutes was spent from 9:00 to 930 over the phone discussion with the daughter regarding their goals of care and end-of-life management. Daughter states that the patient does have an out of hospital DNR/DNI at [place]., Justifications for Admission Other Justification Acute renal failure MAGALY DAVIS MD Sep 19, 2020 09:13
[2020-09-19] MEDS: IV NORMAL SALINE 1000ML BAG 1,000 ML IV SCH ×3 (09:44→17:07)
[2020-09-19] MEDS ORDERED: NOREPINEPHRINE VIAL 8 MG in IV DEXTROSE 5% 250 ML IV PRN ×2 (10:00→19:45)
[2020-09-19] MEDS ORDERED: DEXTROSE 50% 25 GM / 50ML DISP.SYRIN. IV PRN (12:00)
[2020-09-19] MEDS ORDERED: SENNOSIDES 8.6 MG TABLET PO PRN (12:00)
[2020-09-19] MEDS ORDERED: ONDANSETRON PF 4 MG/2 ML VIAL. IVP PRN (12:00)
[2020-09-19] MEDS ORDERED: ENOXAPARIN 30 MG/0.3 ML SYRINGE. SQ SCH (12:30)
[2020-09-19] MEDS: PANTOPRAZOLE IV PUSH 40 MG VIAL. IVP SCH (12:31)
--- NOTE | 2020-09-19 13:00 | NUR ---
Transfer note Patient transferred to 207 from room 12 in ER. Vital signs stable with NC at 2L and Levo at 0.01mc/k/hr. Patient's daughter was update and at bedside. Daughter and patient had no farther questions or needs at this time
[2020-09-19] MEDS: PIPERACILLIN/TAZOBACTAM 3.375 GM in IV NORMAL SALINE 50ML 50 ML IV SCH ×2 (13:25→17:07)
[2020-09-19] MEDS ORDERED: BISA10SU4 RC (14:24)
[2020-09-19] MEDS ORDERED: DEXT15DR5 EACHEYE (14:24)
[2020-09-19] MEDS ORDERED: VITS42.55 TP (14:24)
[2020-09-19] MEDS ORDERED: ONDA-84 PO (14:28)
[2020-09-19] MEDS ORDERED: MAGN400O7 PO (14:28)
[2020-09-19] MEDS ORDERED: POTA20TA4 PO (14:30)
--- NOTE | 2020-09-19 19:05 | NUR ---
Upon shift change and assuming pt care, pt line verification done. Pt had levophed running at 17cc per hour. This gtt was a one time order from ER, gtt bag near empty, gtt turned off at this time. Frequent vitals initiated due to critical care gtt in recent use. Blood pressure dropped after gtt discontinuation 15 minutes later to 65/38, hr of 57. Provider immediately paged and notified at 1938 after low bp reading. He was told the above information about this pt who was admitted today with obstructed [place] and UTI. We discussed that pt had received approximately 2L of normal saline per chart review and antibiotics were ordered as well. Order to transfer to ICU for blood pressure management. No further orders received. Nursing yarn preparation supervisor, Vanesa notified after this phone call at [phone].
--- NOTE | 2020-09-19 19:57 | NUR ---
Pt daughter Elvia notified of pt need to transfer to ICU at this time for blood pressure management. Elvia confirmed that she wants this aggressive blood pressure management for the patient if it is necessary at this time. She would like to be called tonight if pt has further decline or changes [phone].
--- NOTE | 2020-09-19 20:37 | NUR ---
Pt transfer to room 107 at this time. No belongings found in patient room at time of transfer, room checked by this RN.
[2020-09-19] MEDS: PSYLLIUM HUSK (SUGAR FREE) 1 PKT PACKET PO SCH (22:00)
[2020-09-20] VITALS (27 sets, daily range): BP systolic 97–159; BP diastolic 50–86
[2020-09-20] MEDS: IV NORMAL SALINE 1000ML BAG 1,000 ML IV SCH ×5 (00:05→17:41)
[2020-09-20] MEDS: PIPERACILLIN/TAZOBACTAM 3.375 GM in IV NORMAL SALINE 50ML 50 ML IV SCH ×4 (00:07→17:41)
--- NOTE | 2020-09-20 07:00 | NUR ---
On 09/19/20 at approximately 2024, pt arrived to ICU in room 107 from [facility] for hypotension requiring levophed gtt. Vital signs stable and still requiring levophed at this time. Call light within reach. Report given to day shift nurse.
[2020-09-20] MEDS: PANTOPRAZOLE IV PUSH 40 MG VIAL. IVP SCH (07:25)
--- NOTE | 2020-09-20 08:49 | PDOC ---
PROGRESS NOTES Date of Service: DATE: 09/20/20 TIME: 08:[address] ABD/PELVIS IMPRESSION: 1. Distended bladder with moderate bilateral hydronephrosis. Findings are concerning for bladder outlet obstruction. Hanna is noted within the bladder. Correlate for Hanna dysfunction. 2. Cholelithiasis. 3. A 1.8 cm nodule in the right adrenal gland, incompletely characterized on this exam. This can be better evaluated with nonemergent adrenal protocol CT or MRI. 4. Sclerotic lesion at the right pubic symphysis. Correlate with malignancy history. 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 cortisol level and TSH Repeat troponin in 3 hours Heparin for DVT prophylaxis Protonix GI prophylaxis ADA diet Full code Discussed with RN and SW BLADDER SCAN PROTOCOL ID CONSULT, REPEAT BLOOD CULT 09-20 Disposition inpatient management as above Surrogate decision maker is the daughter LOOD CULTURE Final GRAM NEGATIVE RODS, IN 2 OF 4 BOTTLES, TWO SETS DRAWN. ONE SET IS POSITIVE. CONSIDER UROLOGY REFERRAL 37 minutes of critical care time was spent in reviewing chart, labs, and images. Discussed with RN and SW. History of Present Illness History of Present Illness History of Present Illness: HPI: 85 year old male with past medical history of atrial fibrillation, GERD, dyslipidemia, hypertension who arrives via EMS with a chief complaint of abdominal pain and back pain. Pain began about 4 PM today. Patient describes 10 out of 10 abdominal pain worse on the left side as well as lumbar back pain that is not as severe. Patient is extremely hard of hearing therefore history, physical review of systems are extremely difficult to obtain due to his inability to hear and answer questions. Patient daughter states that patient does have a Hanna that is indwelling and she is unsure when it was exchanged or flushed. 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 HEENT: Normal cephalic, atraumatic, external auditory canals are patent EYES: Extraocular muscles are intact, pupil are equally round and reactive to light and accommodation MUSCULOSKELETAL: Well developed , well nourished, good range of motion ENDOCRINE: No thyromegaly was palpated LYMPHATICS: No cervical chain or axillary nodes were noted HEMATOPOIETIC: No bruising NECK: Supple, no JVD, no thyromegaly was noted LUNGS: Clear to auscultation in all lung ramires without rhonchi or wheezing HEART: RRR, S!, S2 present. Peripheral pulses intact, no obvious murmurs noted ABDOMEN: Soft, nontender. Positive bowel sounds, no organomegaly, normal bowel sounds EXTREMITIES: Without clubbing, cyanosis, or edema. Pedal pulses intact. Negative Homans sign NEUROLOGIC: Normal speech and tone. A&O x 3, moves all extremities, no obvious focal deficits PSYCHIATRIC: Normal affect, normal mood. Stable SKIN: No ulcerations or rashes, good skin turgor, no jaundice VASCULAR: Good capillary refill, neurovascular bundle appears to be intact Labs LABS ORDERED: BCULT Procedure Result --- --------- BLOOD CULTURE Final GRAM NEGATIVE RODS, IN 2 OF 4 BOTTLES, TWO SETS DRAWN. ONE SET IS POSITIVE. CALLED TO ANA STROUD RN IN ICU AT 8:35 ON 09/20/20 DW MT SENT TO [facility] FOR FURTHER WORKUP. Procedure Result URINE CULTURE Final Final Three or more organisms isolated. Results consistent with colonization or contamination during the collection process. Recollection recommended using a method to minimize contamination. An ID and Sensitivity will be performed when one organism is predominant and a likely pathogen on 09/20/20 at 0754 Testing Performed by: [facility] [place] [address] For Inquires, the Physician may contact the Microbiology department at [phone] Unless otherwise specified, Testing Performed by: [facility] [place] [address] For Inquires, the Physician may contact the Microbiology department at [phone] PATIENT: JEF SOTO ACCOUNT: [id number] : 1935 LOCATION: ER AGE: 85 SEX: M EXAM STATUS: REG ER ORD. PHYSICIAN: VINCENT CHAPA MD REASON: ABD PAIN, OMNI 300, 60 ML IV PROCEDURE: CT ABD PELV W/ IV CONTRST ONLY Exam: CT of abdomen and pelvis with contrast INDICATION: Abdominal pain TECHNIQUE: Sequential axial images through the abdomen and pelvis obtained following the administration of 60 mL of Omni 300 IV contrast. Sagittal and coronal reformatted images were reconstructed from the axial data and reviewed. Comparisons: None FINDINGS: Heart size is normal. No pericardial effusion. Visualized lung bases are clear. No pleural effusion. Liver, spleen, pancreas are unremarkable. There is a 1.8 cm nodule in the medial limb of the right adrenal gland. Gallstone noted at the neck of the gallbladder. Kidneys demonstrate symmetric enhancement. There is moderate bilateral hydronephrosis. No obstructing stone identified. Bladder is distended with a Hanna balloon noted within the bladder. Prostate is not enlarged. Large and small bowel are unremarkable. Appendix is nonidentified. No free intra-abdominal air or fluid. No obstruction. Abdominal aorta has a normal course and caliber. Abdominal vasculature is patent. No enlarged intra-abdominal lymph nodes are identified. There is a sclerotic lesion involving the right pubic symphysis. IMPRESSION: 1. Distended bladder with moderate bilateral hydronephrosis. Findings are concerning for bladder outlet obstruction. Hanna is noted within the bladder. Correlate for Hanna dysfunction. 2. Cholelithiasis. 3. A 1.8 cm nodule in the right adrenal gland, incompletely characterized on this exam. This can be better evaluated with nonemergent adrenal protocol CT or MRI. 4. Sclerotic lesion at the right pubic symphysis. Correlate with malignancy hi story. Exposure: One or more of the following in the visualized dose reduction techniques were utilized for this examination: 1. Automated exposure control 2. Adjustment of the MA and/or KV according to patient size 3. Use of iterative of reconstructive technique Laboratory Tests Test 09/19/20 09:52 09/19/20 14:40 09/19/20 17:48 Troponin I Quantitative 0.090 ng/mL (0.000-0.055) 0.080 ng/mL (0.000-0.055) 0.066 ng/mL (0.000-0.055) Thyroid Stimulating Hormone (TSH) 1.871 uIU/mL (0.358-3.74) Assessment and Plan Assessmemt and Plan Problems Medical Problems: (1) Abdominal pain Status: Acute (2) Azotemia Status: Acute (3) Back pain Status: Acute (4) Bladder outlet obstruction Status: Acute (5) Pyelonephritis Status: Acute Comment Review of Relevant I have reviewed the following items gustavo (where applicable) has been applied. Labs Laboratory Tests Test 09/18/20 21:50 09/18/20 22:45 09/18/20 23:55 09/19/20 09:52 White Blood Count 18.4 x10^3/uL (4.0-11.0) Red Blood Count 4.39 x10^6/uL (4.30-5.70) Hemoglobin 12.7 g/dL (13.0-17.5) Hematocrit 38.7 % (39.0-53.0) Mean Corpuscular Volume 88 fL (79-100) Mean Corpuscular Hemoglobin 29 pg (25-35) Mean Corpuscular Hemoglobin Concent 33 g/dL (31-37) Red Cell Distribution Width 15.6 % (11.5-14.5) Platelet Count 260 x10^3/uL (140-400) Neutrophils (%) (Auto) 91 % (31-73) Lymphocytes (%) (Auto) 3 % (24-48) Monocytes (%) (Auto) 5 % (0-9) Eosinophils (%) (Auto) 0 % (0-3) Basophils (%) (Auto) 0 % (0-3) Neutrophils # (Auto) 16.8 x10^3/uL (1.8-7.7) Lymphocytes # (Auto) 0.6 x10^3/uL (1.0-4.8) Monocytes # (Auto) 1.0 x10^3/uL (0.0-1.1) Eosinophils # (Auto) 0.0 x10^3/uL (0.0-0.7) Basophils # (Auto) 0.0 x10^3/uL (0.0-0.2) Segmented Neutrophils % 94 % (35-66) Band Neutrophils % 1 % (0-9) Lymphocytes % 3 % (24-48) Monocytes % 2 % (0-10) Toxic Granulation Mod Platelet Estimate Adequate (ADEQUATE) Sodium Level 135 mmol/L (136-145) Potassium Level 3.8 mmol/L (3.5-5.1) Chloride Level 100 mmol/L (98-107) Carbon Dioxide Level 22 mmol/L (21-32) Anion Gap 13 (6-14) Blood Urea Nitrogen 46 mg/dL (8-26) Creatinine 1.3 mg/dL (0.7-1.3) Estimated GFR (Cockcroft-Gault) 52.2 BUN/Creatinine Ratio 35 (6-20) Glucose Level 162 mg/dL (70-99) Lactic Acid Level 1.1 mmol/L (0.4-2.0) Calcium Level 9.0 mg/dL (8.5-10.1) Total Bilirubin 0.5 mg/dL (0.2-1.0) Aspartate Amino Transf (AST/SGOT) 22 U/L (15-37) Alanine Aminotransferase (ALT/SGPT) 32 U/L (16-63) Alkaline Phosphatase 116 U/L (46-116) Total Protein 6.6 g/dL (6.4-8.2) Albumin 2.7 g/dL (3.4-5.0) Albumin/Globulin Ratio 0.7 (1.0-1.7) Lipase 52 U/L (73-393) Urine Collection Type U cath U cath Urine Color Nia Nia Urine Clarity Turbid Turbid Urine pH 8.5 (<5.0-8.0) 8.5 (<5.0-8.0) Urine Specific [place] 1.025 (1.000-1.030) 1.020 (1.000-1.030) Urine Protein >=300 mg/dL (NEG-TRACE) 100 mg/dL (NEG-TRACE) Urine Glucose (UA) Negative mg/dL (NEG) Negative mg/dL (NEG) Urine Ketones (Stick) Negative mg/dL (NEG) Negative mg/dL (NEG) Urine Blood Negative (NEG) Moderate (NEG) Urine Nitrite Positive (NEG) Positive (NEG) Urine Bilirubin Negative (NEG) Negative (NEG) Urine Urobilinogen Dipstick 1.0 mg/dL (0.2 mg/dL) 1.0 mg/dL (0.2 mg/dL) Urine Leukocyte Esterase Large (NEG) Large (NEG) Urine RBC 6-10 /HPF (0-2) 11-20 /HPF (0-2) Urine WBC Tntc /HPF (0-4) Tntc /HPF (0-4) Urine Squamous Epithelial Cells None /LPF None /LPF Urine Amorphous Sediment Present /HPF Present /HPF Urine Bacteria Many /HPF (0-FEW) Many /HPF (0-FEW) Urine Granular Casts Occasional /HPF Occasional /HPF Urine Hyaline Casts Occasional /HPF Urine Mucus Marked /LPF Troponin I Quantitative 0.090 ng/mL (0.000-0.055) Thyroid Stimulating Hormone (TSH) 1.871 uIU/mL (0.358-3.74) Test 09/19/20 14:40 09/19/20 17:48 Troponin I Quantitative 0.080 ng/mL (0.000-0.055) 0.066 ng/mL (0.000-0.055) Laboratory Tests Test 09/19/20 09:52 09/19/20 14:40 09/19/20 17:48 Troponin I Quantitative 0.090 ng/mL (0.000-0.055) 0.080 ng/mL (0.000-0.055) 0.066 ng/mL (0.000-0.055) Thyroid Stimulating Hormone (TSH) 1.871 uIU/mL (0.358-3.74) Microbiology 09/19/20 Urine Culture - Final, Complete 09/19/20 Blood Culture - Final, Complete Medications Current Medications Morphine Sulfate (Morphine Sulfate) 4 mg 1X ONCE IV Last administered on 09/18/20at 22:10; Start 09/18/20 at 22:00; Stop 09/18/20 at 22:01; Status DC Ondansetron HCl (Zofran) 4 mg 1X ONCE IVP Last administered on 09/18/20at 22:10; Start 09/18/20 at 22:00; Stop 09/18/20 at 22:01; Status DC Lorazepam (Ativan Inj) 1 mg 1X ONCE IVP Last administered on 09/18/20at 22:29; Start 09/18/20 at 22:30; Stop 09/18/20 at 22:35; Status DC Iohexol (Omnipaque 300 Mg/ml) 60 ml 1X ONCE IV Last administered on 09/18/20at 23:15; Start 09/18/20 at 22:45; Stop 09/18/20 at 22:46; Status DC Info (CONTRAST GIVEN -- Rx MONITORING) 1 each PRN DAILY PRN MC SEE COMMENTS; Start 09/18/20 at 22:45; Stop 09/20/20 at 22:44 Piperacillin Sod/ Tazobactam Sod 3.375 gm/Sodium Chloride 50 ml @ 100 mls/hr 1X ONCE IV Last administered on 09/19/20at 00:32; Start 09/18/20 at 23:30; Stop 09/18/20 at 23:59; Status DC Sodium Chloride 1,000 ml @ 1,000 mls/hr 1X ONCE IV Last administered on 09/19/20at 00:32; Start 09/19/20 at 00:15; Stop 09/19/20 at 01:14; Status DC Ondansetron HCl (Zofran) 4 mg PRN Q8HRS PRN IV NAUSEA/VOMITING; Start 09/19/20 at 00:30; Stop 09/20/20 at 00:29; Status DC Sodium Chloride 1,000 ml @ 125 mls/hr 1X ONCE IV Last administered on 09/19/20at 01:37; Start 09/19/20 at 00:30; Stop 09/19/20 at 08:29; Status DC Olanzapine (ZyPREXA ZYDIS) 5 mg PRN BID PRN PO ANXIETY / AGITATION Last administered on 09/19/20at 15:15; Start 09/19/20 at 06:15 Psyllium Hydrophilic Mucilloid (Metamucil Fiber Packet) 1 pkt QHS PO Last administered on 09/19/20at 22:00; Start 09/19/20 at 21:00 Piperacillin Sod/ Tazobactam Sod 3.375 gm/Sodium Chloride 50 ml @ 100 mls/hr Q6HRS IV Last administered on 09/20/20at 05:29; Start 09/19/20 at 12:00 Piperacillin Sod/ Tazobactam Sod (Zosyn Per Pharmacy) 1 each PRN DAILY PRN MC SEE COMMENTS; Start 09/19/20 at 06:15 Sodium Chloride 1,000 ml @ 100 mls/hr Q10H IV Last administered on 09/19/20at 17:07; Start 09/19/20 at 06:15 Ondansetron HCl (Zofran) 4 mg PRN Q4HRS PRN IV NAUSEA/VOMITING; Start 09/19/20 at 06:15 Acetaminophen (Tylenol) 650 mg PRN Q4HRS PRN PO TEMP OVER 100.4F OR MILD PAIN; Start 09/19/20 at 06:15 Docusate Sodium (Colace) 100 mg PRN BID PRN PO HARD STOOLS; Start 09/19/20 at 06:15 Guaifenesin (Robitussin) 200 mg PRN Q4HRS PRN PO COUGH; Start 09/19/20 at 06:15 Piperacillin Sod/ Tazobactam Sod 3.375 gm/Sodium Chloride 50 ml @ 100 mls/hr ONCE ONCE IV Last administered on 09/19/20at 07:45; Start 09/19/20 at 07:30; Stop 09/19/20 at 07:59; Status DC Norepinephrine Bitartrate 8 mg/ Dextrose 258 ml @ 17.589 mls/ hr ONCE ONCE IV Last administered on 09/19/20at 08:27; Start 09/19/20 at 08:30; Stop 09/19/20 at 19:46; Status DC Norepinephrine Bitartrate 8 mg/ Dextrose 258 ml @ 17.589 mls/ hr CONT PRN IV PER PROTOCOL; Start 09/19/20 at 10:00; Stop 09/19/20 at 19:46; Status DC Sennosides (Senna) 17.2 mg PRN BID PRN PO CONSTIPATION; Start 09/19/20 at 12:00 Docusate Sodium (Colace) 100 mg PRN DAILY PRN PO HARD STOOLS; Start 09/19/20 at 12:00 Ondansetron HCl (Zofran) 4 mg PRN Q6HRS PRN IVP NAUSEA/VOMITING; Start 09/19/20 at 12:00 Dextrose (Dextrose 50%-Water Syringe) 12.5 gm PRN Q15MIN PRN IV SEE COMMENTS; Start 09/19/20 at 12:00 Sodium Chloride 1,000 ml @ 100 mls/hr Q10H IV Last administered on 09/20/20at 07:25; Start 09/19/20 at 12:00 Enoxaparin Sodium (Lovenox 30mg Syringe) 30 mg Q24H SQ Last administered on 09/19/20at 12:33; Start 09/19/20 at 12:30; Stop 09/20/20 at 07:55; Status DC Pantoprazole Sodium (PROTONIX VIAL for IV PUSH) 40 mg DAILYAC IVP Last administered on 09/20/20at 07:25; Start 09/19/20 at 12:00 Norepinephrine Bitartrate 8 mg/ Dextrose 258 ml @ 15.674 mls/ hr CONT PRN IV PER PROTOCOL Last administered on 09/19/20at 23:40; Start 09/19/20 at 19:45 Enoxaparin Sodium (Lovenox 40mg Syringe) 40 mg Q24H SQ ; Start 09/20/20 at 12:00 Active Scripts Active Reported Klor-Con M20 (Potassium Chloride) 20 Meq Tab.er.prt 20 Meq PO DAILY Ondansetron Hcl 4 Mg Tablet 8 Mg PO PRN Q8HRS PRN Milk Of Magnesia (Magnesium Hydroxide) 400 Mg/5 Ml Oral.susp 400 Mg PO PRN DAILY PRN Bisacodyl 10 Mg Supp.rect 10 Mg RC PRN DAILY PRN Artificial Tears Eye Drops (Dextran 70/Hypromellose) 15 Ml Drops 1 Drop EACHEYE PRN QID PRN A and D Ointment (Vits A and D/White Pet/Lanolin) 42.5 Gm Oint...g. 42.5 Gm TP BID Flomax (Tamsulosin Hcl) 0.4 Mg Cap.er.24h 1 Cap PO DAILY Famotidine 20 Mg Tablet 20 Mg PO BID Miralax (Polyethylene Glycol 3350) 17 Gm Powd.pack 1 Packet PO DAILY PRN 2 Days dissolve in water Lisinopril 40 Mg Tablet 1 Tab PO DAILY Flonase Allergy Relief (Fluticasone Propionate) 9.9 Ml Millen.susp 1 Sprays NS DAILY PRN Finasteride 5 Mg Tablet 1 Tab PO DAILY Ferrous Sulfate 325 Mg Tablet 1 Tab PO DAILY Tylenol (Acetaminophen) 325 Mg Tablet 500 Mg PO PRN Q6HRS PRN Centrum Complete Multivit Tab (Multivitamin/Iron/Folic Acid) 1 Each Tablet 1 Each PO DAILY Aspirin 325 Mg Tablet 1 Tab PO DAILY Docusate Sodium 100 Mg Capsule 100 Mg PO TID Hydrochlorothiazide Tablet (Hydrochlorothiazide) 25 Mg Tablet 1 Tab PO DAILY Amiodarone Hcl 200 Mg Tablet 1 Tab PO DAILY Simvastatin 20 Mg Tablet 1 Tab PO QHS Vitals/I & O Vital Sign - Last 24 Hours 09/19/20 09/19/20 09/19/20 09/19/20 09:00 10:00 11:00 12:00 Temp 98.6 98.6 Pulse 74 72 70 71 Resp 31 35 32 28 B/P (MAP) 84/53 (63) 84/48 (60) 86/49 (61) 85/47 (60) Pulse Ox 95 97 97 97 O2 Delivery Nasal Cannula Nasal Cannula Nasal Cannula Nasal Cannula O2 Flow Rate 2.0 2.0 2.0 2.0 09/19/20 09/19/20 09/19/20 09/19/20 13:30 14:35 14:52 19:10 Temp 98.0 98.0 98.0 98.0 Pulse 74 81 64 Resp 28 28 B/P (MAP) 96/42 (60) 112/59 (76) 110/58 (75) Pulse Ox 92 96 O2 Delivery Nasal Cannula Nasal Cannula Nasal Cannula O2 Flow Rate 2.0 2.0 2.0 09/19/20 09/19/20 09/19/20 09/19/20 19:15 19:25 19:40 19:50 Pulse 56 64 64 B/P (MAP) 65/38 (47) 98/56 (70) 107/58 (74) O2 Delivery Nasal Cannula O2 Flow Rate 2.0 09/19/20 09/19/20 09/19/20 09/19/20 20:10 20:25 20:30 21:00 Temp 98.0 97.6 98.0 97.6 Pulse 66 70 68 Resp 18 19 25 B/P (MAP) 112/56 (74) 114/61 (78) 114/53 (73) Pulse Ox 98 100 98 O2 Delivery Nasal Cannula Nasal Cannula Nasal Cannula Nasal Cannula O2 Flow Rate 2.0 2.0 2.0 2.0 09/19/20 09/19/20 09/20/20 09/20/20 22:00 23:00 00:00 00:00 Temp 97.9 97.9 Pulse 64 65 65 Resp 22 B/P (MAP) 110/50 (70) 105/51 (69) 124/57 (79) Pulse Ox 100 98 100 O2 Delivery Nasal Cannula Room Air Room Air Room Air O2 Flow Rate 2.0 09/20/20 09/20/20 09/20/20 09/20/20 01:00 02:00 03:00 03:15 Pulse 65 68 66 64 Resp 16 24 B/P (MAP) 113/54 (73) 137/63 (87) 127/59 (81) 113/55 (74) Pulse Ox 99 100 100 100 O2 Delivery Room Air Room Air Room Air Room Air 09/20/20 09/20/20 09/20/20 09/20/20 04:00 04:00 05:00 06:00 Temp 97.9 97.9 Pulse 63 69 68 Resp 18 25 B/P (MAP) 111/55 (73) 114/63 (80) 133/66 (88) Pulse Ox 100 97 98 O2 Delivery Room Air Room Air Room Air Room Air 09/20/20 09/20/20 09/20/20 09/20/20 06:15 07:00 08:00 08:00 Temp 98.1 98.1 Pulse 64 62 73 Resp 28 24 B/P (MAP) 118/62 (80) 97/52 (67) 151/70 (97) Pulse Ox 98 96 99 O2 Delivery Room Air Room Air Room Air Room Air Intake and Output 09/19/20 09/19/20 09/20/20 15:00 23:00 07:00 Intake Total 1500 ml 3852 ml Output Total 1300 ml 260 ml 415 ml Balance 200 ml -260 ml 3437 ml Justicifation of Admission Dx: Justifications for Admission: Justification of Admission Dx: Yes JUSTINO CAMPOS MD Sep 20, 2020 08:49
[2020-09-20 10:48] LABS: BASO # 0.1 x10^3/uL (0.0-0.2); BASO % 0 % (0-3); EOS % 0 % (0-3); HEMATOCRIT 29.3 % (39.0-53.0); HEMOGLOBIN 9.5 g/dL (13.0-17.5); LYMPH # 0.9 x10^3/uL (1.0-4.8); LYMPH % 3 % (24-48); MEAN CORPUSCULAR HEMOGLOBIN 29 pg (25-35); MEAN CORPUSCULAR HGB CONC 33 g/dL (31-37); MEAN CORPUSCULAR VOLUME 89 fL (79-100); MONO # 1.1 x10^3/uL (0.0-1.1); MONO % 4 % (0-9); NEUT # 27.5 x10^3/uL (1.8-7.7); NEUT % 93 % (31-73); PLATELET COUNT 193 x10^3/uL (140-400); RED BLOOD COUNT 3.28 x10^6/uL (4.30-5.70); RED CELL DISTRIBUTION WIDTH 16.2 % (11.5-14.5); WHITE BLOOD COUNT 29.6 x10^3/uL (4.0-11.0)
[2020-09-20 11:04] LABS: CALCIUM 7.8 mg/dL (8.5-10.1); CREATININE 1.4 mg/dL (0.7-1.3); GFR 47.9; PHOSPHORUS 2.8 mg/dL (2.6-4.7); POTASSIUM 3.2 mmol/L (3.5-5.1)
--- NOTE | 2020-09-20 11:16 | CONS ---
DATE OF CONSULTATION: 09/20/2020 REFERRING PHYSICIAN: Dr. Guillen. REASON FOR CONSULTATION: Gram-negative bacteremia. HISTORY OF PRESENT ILLNESS: An 85-year-old male, difficult to obtain any history due to inability to hear and answer questions. History obtained from chart and medical staff. The patient is currently admitted to ICU. He presented to the ER via EMS on 09/18/2020 with complaints of abdominal pain and back pain, which started couple of hours prior to admission. The patient was found to have leukocytosis of 18.4, creatinine of 1.3, lactate of 1.1. UA showed large leukocyte esterase, wbc's too numerous to count. The patient was given a dose of Zosyn. He was afebrile at 98.5. CT abdomen and pelvis revealed a distended bladder with moderate bilateral hydronephrosis, concerns for bladder outlet obstruction. Hanna is noted within the bladder, correlate with Hanna dysfunction, cholelithiasis, 1.8 cm nodule in the right adrenal gland, sclerotic lesion at the right pubic symphysis correlate with malignancy history. Hanna was changed in the ER. He had blood cultures, which are showing 2/4 bottles with gram-negative rods. Urine culture is showing 3 or more organisms, results consistent with colonization. ID consult is requested for antibiotic management. The patient remains on Levophed, T-max was 101, afebrile this morning on room air. Alert, awake, appears comfortable. 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 ALLERGIES: No known drug allergies. FAMILY HISTORY: Noncontributory. SOCIAL HISTORY: Nonsmoker, no alcohol, no drugs. CURRENT MEDICATIONS: Zosyn. Other medications reviewed in medication list. Flomax, famotidine, MiraLax, lisinopril, Flonase, finasteride, ferrous sulfate, hydrocodone, Tylenol, Centrum, aspirin, docusate, hydrochlorothiazide, amlodipine, amiodarone, simvastatin. REVIEW OF SYSTEMS: Unable to obtain. PHYSICAL EXAMINATION: VITAL SIGNS: Temperature 98.1, pulse 72, respiratory rate 24, blood pressure 125/50, oxygen saturation 100% on room air. GENERAL: Alert, awake male, comfortable, in no acute distress, on room air. HEENT: Normocephalic, atraumatic, anicteric. Oral mucosa moist. NECK: Supple, no JVD. LUNGS: Clear bilaterally. No wheezing. HEART: S1, S2, no murmurs. ABDOMEN: Soft, nondistended, nontender. Bowel sounds present. EXTREMITIES: No edema, no cyanosis. DERMATOLOGIC: Warm, dry. No generalized rash. NEUROLOGIC: Alert, awake, hard of hearing. Moves all four extremities, though weak. PSYCHIATRIC: Cooperative, calm. LABORATORY DATA: WBC 18.4, hemoglobin 12.7, hematocrit 38.7, platelets 260. UA; large leukocyte esterase, too numerous to count wbc's. Troponin elevated at 0.066. Lactate normal. Creatinine 1.3, albumin 2.7. Lipase 52. IMAGING: CT abdomen and pelvis as above. IMPRESSION: 1. Sepsis from gram-negative bacteremia. 2. Gram-negative bacteremia, source genitourinary. 3. Urinary tract infection with chronic indwelling Hanna, status post exchange in ED. 4. Leukocytosis. 5. Fever. 6. Bilateral hydronephrosis with distended bladder. 7. BPH. 8. Chronic indwelling Hanna. 9. A 1.8 cm right adrenal gland nodule. 10. Sclerotic lesion at the right symphysis pubis on CT. 11. Hard of hearing. 12. Protein-calorie malnutrition. RECOMMENDATIONS: 1. Continue Zosyn. 2. Hanna has been exchanged. Monitor closely. 3. Follow up blood culture and urine culture. 4. Continue supportive care. 5. If patient's condition does not improve, may need Urology evaluation and transfer to other facility as Urology is not available at this center. Thank you for allowing me to participate in this patient's care. If you have any questions, do not hesitate to contact me. Discussed with nursing staff. ROBBIE RUCKER MD DR: DEMETRIO/deanna JOB#: [id number] / [id number]
[2020-09-20] MEDS ORDERED: POTASSIUM CHLORIDE 20 MEQ TABLET.ER. PO SCH ×2 (12:30)
[2020-09-20] MEDS ORDERED: POTASSIUM CHLORIDE 20 MEQ TABLET.ER. PO ONE (12:30)
[2020-09-20] MEDS ORDERED: SODIUM PHOSPHATE 20 MMOL in IV NORMAL SALINE 250ML 250 ML IV ONE (12:30)
[2020-09-20] MEDS ORDERED: ELECTROLYTE (ICU) PROTOCOL. MC PRN (12:45)
[2020-09-20] MEDS: ENOXAPARIN 40 MG/0.4 ML SYRINGE. SQ SCH (12:55)
[2020-09-20] MEDS ORDERED: POTASSIUM CHLORIDE 20MEQ 100 ML IV SCH (13:00)
--- NOTE | 2020-09-20 15:47 | NUR ---
Wound/Ostomy Care Wound Type/Assessment: bilateral heels, distal penis, and coccyx unstageable pressure ulcers. see assessment. Treatment Recommendations/Plan: Bilateral heels- skin prep and foam dressings change every 3 days. Penis and coccyx A&D ointment BID and PRN Education provided: PU prevention education, pt will need reinforcement due to mental status, orange instructions left in room. Offloading surface/device: Pt is on ICU bed, wedge and pillows used for turns. Left and right turns only. Pt will need P500 if transferred upstairs. Heel medix boots ordered Recommended Referrals/Tests: na Discharge Recommendations for dressings: continue as above noted
[2020-09-20] MEDS: PSYLLIUM HUSK (SUGAR FREE) 1 PKT PACKET PO SCH ×2 (21:00→21:27)
[2020-09-20] MEDS ORDERED: POTASSIUM & SODIUM PHOSPHATES PACKET. PO SCH (21:00)
[2020-09-20] MEDS: LACTOBACILLUS RHAMNOSUS GG 1 CAPSULE. PO SCH (21:26)
--- NOTE | 2020-09-20 22:43 | RAD ---
Exam: Ultrasound bilateral kidneys Indication: Hydronephrosis Technique: Real-time grayscale and color Doppler images of the kidney were obtained by the department plate take out worker. Comparisons: None FINDINGS: Right kidney measures 11.0 cm in length. No hydronephrosis. Left kidney measures 9.9 cm in length. No hydronephrosis. Bladder is decompressed with Hanna balloon in the pelvis. Visual is portions aorta and IVC are unremarkable. IMPRESSION: No hydronephrosis. Electronically signed by: Pablito Goldstein MD (09/20/2020 10:40 PM) SHAMAR
[2020-09-21] VITALS (16 sets, daily range): BP systolic 119–170; BP diastolic 55–91
[2020-09-21] MEDS: PIPERACILLIN/TAZOBACTAM 3.375 GM in IV NORMAL SALINE 50ML 50 ML IV SCH ×4 (00:37→17:12)
[2020-09-21] MEDS: IV NORMAL SALINE 1000ML BAG 1,000 ML IV SCH ×2 (05:52→17:03)
--- NOTE | 2020-09-21 07:41 | PDOC ---
PROGRESS NOTES Date of Service: DATE: 09/21/20 TIME: 07:[address] ABD/PELVIS IMPRESSION: 1. Distended bladder with moderate bilateral hydronephrosis. Findings are concerning for bladder outlet obstruction. Hanna is noted within the bladder. Correlate for Hanna dysfunction. 2. Cholelithiasis. 3. A 1.8 cm nodule in the right adrenal gland, incompletely characterized on this exam. This can be better evaluated with nonemergent adrenal protocol CT or MRI. 4. Sclerotic lesion at the right pubic symphysis. Correlate with malignancy history. impression Assessment/Plan Sepsis due to UTI gram neg bacteremia Hemodynamic instability Acute UTI secondary to bladder outlet obstruction No hydronephrosis. 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 cortisol level and TSH Repeat troponin in 3 hours Heparin for DVT prophylaxis Protonix GI prophylaxis ADA diet Full code Discussed with RN and MILAD elizabeth qid cardiology consult BLADDER SCAN PROTOCOL BY US No hydronephrosis. ID CONSULT, REPEAT BLOOD CULT 09-20 Disposition inpatient management as above Surrogate decision maker is the daughter LOOD CULTURE Final GRAM NEGATIVE RODS, IN 2 OF 4 BOTTLES, TWO SETS DRAWN. ONE SET IS POSITIVE. CONSIDER UROLOGY REFERRAL but No hydronephrosis. 09-21 MORE ALERT, SOME EXP WHEEZES to cvc bed later today , cxr duonebs 37 minutes of critical care time was spent in reviewing chart, labs, and images. Discussed with RN and SW. History of Present Illness History of Present Illness History of Present Illness: HPI: 85 year old male with past medical history of atrial fibrillation, GERD, dyslipidemia, hypertension who arrives via EMS with a chief complaint of abdominal pain and back pain. Pain began about 4 PM DAY OF ADMIT . Patient describes 10 out of 10 abdominal pain worse on the left side as well as lumbar back pain that is not as severe. Patient is extremely hard of hearing therefore history, physical review of systems are extremely difficult to obtain due to his inability to hear and answer questions. Patient daughter states that patient does have a Hanna that is indwelling and she is unsure when it was exchanged or flushed. 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 HEENT: Normal cephalic, atraumatic, external auditory canals are patent EYES: Extraocular muscles are intact, pupil are equally round and reactive to light and accommodation MUSCULOSKELETAL: Well developed , well nourished, good range of motion ENDOCRINE: No thyromegaly was palpated LYMPHATICS: No cervical chain or axillary nodes were noted HEMATOPOIETIC: No bruising NECK: Supple, no JVD, no thyromegaly was noted LUNGS: mild exp wheezing HEART: RRR, S!, S2 present. Peripheral pulses intact, no obvious murmurs noted ABDOMEN: Soft, nontender. Positive bowel sounds, no organomegaly, normal bowel sounds EXTREMITIES: Without clubbing, cyanosis, or edema. Pedal pulses intact. Negative Homans sign NEUROLOGIC: Normal speech and tone. A&O x 3, moves all extremities, no obvious focal deficits PSYCHIATRIC: Normal affect, normal mood. Stable SKIN: No ulcerations or rashes, good skin turgor, no jaundice VASCULAR: Good capillary refill, neurovascular bundle appears to be intact General: Alert, Oriented X3, Cooperative, No acute distress Heart: Regular rate Lungs: Wheezing Abdomen: Normal bowel sounds, Soft Extremities: No cyanosis Labs LABS LEFT VENTRICLE The left ventricle is normal size. There is mild concentric left ventricular hypertrophy. The left ventricular systolic function is normal. Left ventricular ejection fraction is 55-60%. There is normal LV segmental wall motion. Transmitral Doppler flow pattern is Grade I-abnormal relaxation pattern. RIGHT VENTRICLE The right ventricle is normal size. There is normal right ventricular wall t hickness. The right ventricular systolic function is normal. ATRIA The left atrium size is normal. The right atrium size is normal. The interatrial septum is intact with no evidence for an atrial septal defect or patent foramen ovale as noted on 2-D or Doppler imaging. AORTIC VALVE The aortic valve is thickened but opens well. Doppler and Color Flow revealed trace aortic regurgitation. There is no significant aortic valvular stenosis. MITRAL VALVE The mitral valve is normal in structure and function. There is no evidence of mitral valve prolapse. There is no mitral valve stenosis. Doppler and Color-flow revealed trace to mild mitral regurgitation. TRICUSPID VALVE The tricuspid valve is not well visualized. Doppler and Color Flow revealed no tricuspid valve regurgitation noted. There is no tricuspid valve stenosis. PULMONIC VALVE The pulmonic valve is not well visualized. Doppler and Color Flow revealed trace pulmonic valvular regurgitation. GREAT VESSELS The aortic root is normal in size. The IVC was not visualized. PERICARDIAL EFFUSION There is no evidence of significant pericardial effusion. Critical Notification Critical Value: No <Conclusion> The left ventricle is normal size. The left ventricle is normal size. The left ventricular systolic function is normal. Left ventricular ejection fraction is 55-60%. There is mild concentric left ventricular hypertrophy. There is no significant aortic valvular stenosis. Doppler and Color Flow revealed trace aortic regurgitation. Doppler and Color-flow revealed trace to mild mitral regurgitation. Doppler and Color Flow revealed no tricuspid valve regurgitation noted. Signed by : Genesis Murillo MD Electronically Approved : 01/02/2019 12:33:03 DICTATED and SIGNED BY: GENESIS MURILLO MD Procedure Result BLOOD CULTURE Final GRAM NEGATIVE RODS, IN 2 OF 4 BOTTLES, TWO SETS DRAWN. ONE SET IS POSITIVE. CALLED TO ANA STROUD RN IN ICU AT 8:35 ON 09/20/20 DW MT SENT TO [facility] FOR FURTHER WORKUP. PATIENT: JEF SOTO ACCOUNT: [id number] : 1935 LOCATION: [address] [place] [address] AGE: 85 SEX: M EXAM STATUS: ADM IN ORD. PHYSICIAN: JUSTINO CAMPOS MD REASON: HYDRONEPHROSIS PROCEDURE: RENAL COMPLETE BILATERAL Exam: Ultrasound bilateral kidneys Indication: Hydronephrosis Technique: Real-time grayscale and color Doppler images of the kidney were obtained by the department neon sign mechanic. Comparisons: None FINDINGS: Right kidney measures 11.0 cm in length. No hydronephrosis. Left kidney measures 9.9 cm in length. No hydronephrosis. Bladder is decompressed with Hanna balloon in the pelvis. Visual is portions aorta and IVC are unremarkable. IMPRESSION: No hydronephrosis. Electronically signed by: Pablito Grant MD (09/20/2020 10:40 PM) [facility] DICTATED and SIGNED BY: PABLITO GRANT MD DATE: 09/20/20 [id number] Laboratory Tests Test 09/20/20 10:10 White Blood Count 29.6 x10^3/uL (4.0-11.0) Red Blood Count 3.28 x10^6/uL (4.30-5.70) Hemoglobin 9.5 g/dL (13.0-17.5) Hematocrit 29.3 % (39.0-53.0) Mean Corpuscular Volume 89 fL (79-100) Mean Corpuscular Hemoglobin 29 pg (25-35) Mean Corpuscular Hemoglobin Concent 33 g/dL (31-37) Red Cell Distribution Width 16.2 % (11.5-14.5) Platelet Count 193 x10^3/uL (140-400) Neutrophils (%) (Auto) 93 % (31-73) Lymphocytes (%) (Auto) 3 % (24-48) Monocytes (%) (Auto) 4 % (0-9) Eosinophils (%) (Auto) 0 % (0-3) Basophils (%) (Auto) 0 % (0-3) Neutrophils # (Auto) 27.5 x10^3/uL (1.8-7.7) Lymphocytes # (Auto) 0.9 x10^3/uL (1.0-4.8) Monocytes # (Auto) 1.1 x10^3/uL (0.0-1.1) Eosinophils # (Auto) 0.0 x10^3/uL (0.0-0.7) Basophils # (Auto) 0.1 x10^3/uL (0.0-0.2) Sodium Level 144 mmol/L (136-145) Potassium Level 3.2 mmol/L (3.5-5.1) Chloride Level 110 mmol/L (98-107) Carbon Dioxide Level 21 mmol/L (21-32) Anion Gap 13 (6-14) Blood Urea Nitrogen 45 mg/dL (8-26) Creatinine 1.4 mg/dL (0.7-1.3) Estimated GFR (Cockcroft-Gault) 47.9 Glucose Level 124 mg/dL (70-99) Lactic Acid Level 1.8 mmol/L (0.4-2.0) Calcium Level 7.8 mg/dL (8.5-10.1) Phosphorus Level 2.8 mg/dL (2.6-4.7) Magnesium Level 2.0 mg/dL (1.8-2.4) Cortisol AM Sample 27.7 ug/dL (4.3-22.4) Assessment and Plan Assessmemt and Plan Problems Medical Problems: (1) Abdominal pain Status: Acute (2) Azotemia Status: Acute (3) Back pain Status: Acute (4) Bladder outlet obstruction Status: Acute (5) Pyelonephritis Status: Acute Comment Review of Relevant I have reviewed the following items gustavo (where applicable) has been applied. Labs Laboratory Tests Test 09/19/20 09:52 09/19/20 14:40 09/19/20 17:48 09/20/20 10:10 Troponin I Quantitative 0.090 ng/mL (0.000-0.055) 0.080 ng/mL (0.000-0.055) 0.066 ng/mL (0.000-0.055) Thyroid Stimulating Hormone (TSH) 1.871 uIU/mL (0.358-3.74) White Blood Count 29.6 x10^3/uL (4.0-11.0) Red Blood Count 3.28 x10^6/uL (4.30-5.70) Hemoglobin 9.5 g/dL (13.0-17.5) Hematocrit 29.3 % (39.0-53.0) Mean Corpuscular Volume 89 fL (79-100) Mean Corpuscular Hemoglobin 29 pg (25-35) Mean Corpuscular Hemoglobin Concent 33 g/dL (31-37) Red Cell Distribution Width 16.2 % (11.5-14.5) Platelet Count 193 x10^3/uL (140-400) Neutrophils (%) (Auto) 93 % (31-73) Lymphocytes (%) (Auto) 3 % (24-48) Monocytes (%) (Auto) 4 % (0-9) Eosinophils (%) (Auto) 0 % (0-3) Basophils (%) (Auto) 0 % (0-3) Neutrophils # (Auto) 27.5 x10^3/uL (1.8-7.7) Lymphocytes # (Auto) 0.9 x10^3/uL (1.0-4.8) Monocytes # (Auto) 1.1 x10^3/uL (0.0-1.1) Eosinophils # (Auto) 0.0 x10^3/uL (0.0-0.7) Basophils # (Auto) 0.1 x10^3/uL (0.0-0.2) Sodium Level 144 mmol/L (136-145) Potassium Level 3.2 mmol/L (3.5-5.1) Chloride Level 110 mmol/L (98-107) Carbon Dioxide Level 21 mmol/L (21-32) Anion Gap 13 (6-14) Blood Urea Nitrogen 45 mg/dL (8-26) Creatinine 1.4 mg/dL (0.7-1.3) Estimated GFR (Cockcroft-Gault) 47.9 Glucose Level 124 mg/dL (70-99) Lactic Acid Level 1.8 mmol/L (0.4-2.0) Calcium Level 7.8 mg/dL (8.5-10.1) Phosphorus Level 2.8 mg/dL (2.6-4.7) Magnesium Level 2.0 mg/dL (1.8-2.4) Cortisol AM Sample 27.7 ug/dL (4.3-22.4) Laboratory Tests Test 09/20/20 10:10 White Blood Count 29.6 x10^3/uL (4.0-11.0) Red Blood Count 3.28 x10^6/uL (4.30-5.70) Hemoglobin 9.5 g/dL (13.0-17.5) Hematocrit 29.3 % (39.0-53.0) Mean Corpuscular Volume 89 fL (79-100) Mean Corpuscular Hemoglobin 29 pg (25-35) Mean Corpuscular Hemoglobin Concent 33 g/dL (31-37) Red Cell Distribution Width 16.2 % (11.5-14.5) Platelet Count 193 x10^3/uL (140-400) Neutrophils (%) (Auto) 93 % (31-73) Lymphocytes (%) (Auto) 3 % (24-48) Monocytes (%) (Auto) 4 % (0-9) Eosinophils (%) (Auto) 0 % (0-3) Basophils (%) (Auto) 0 % (0-3) Neutrophils # (Auto) 27.5 x10^3/uL (1.8-7.7) Lymphocytes # (Auto) 0.9 x10^3/uL (1.0-4.8) Monocytes # (Auto) 1.1 x10^3/uL (0.0-1.1) Eosinophils # (Auto) 0.0 x10^3/uL (0.0-0.7) Basophils # (Auto) 0.1 x10^3/uL (0.0-0.2) Sodium Level 144 mmol/L (136-145) Potassium Level 3.2 mmol/L (3.5-5.1) Chloride Level 110 mmol/L (98-107) Carbon Dioxide Level 21 mmol/L (21-32) Anion Gap 13 (6-14) Blood Urea Nitrogen 45 mg/dL (8-26) Creatinine 1.4 mg/dL (0.7-1.3) Estimated GFR (Cockcroft-Gault) 47.9 Glucose Level 124 mg/dL (70-99) Lactic Acid Level 1.8 mmol/L (0.4-2.0) Calcium Level 7.8 mg/dL (8.5-10.1) Phosphorus Level 2.8 mg/dL (2.6-4.7) Magnesium Level 2.0 mg/dL (1.8-2.4) Cortisol AM Sample 27.7 ug/dL (4.3-22.4) Microbiology 09/19/20 Blood Culture - Preliminary, Resulted NO GROWTH AFTER 1 DAY 09/19/20 Urine Culture - Final, Complete Medications Current Medications Morphine Sulfate (Morphine Sulfate) 4 mg 1X ONCE IV Last administered on 08/25 03/13at 22:10; Start 09/18/20 at 22:00; Stop 09/18/20 at 22:01; Status DC Ondansetron HCl (Zofran) 4 mg 1X ONCE IVP Last administered on 09/18/20at 22:10; Start 09/18/20 at 22:00; Stop 09/18/20 at 22:01; Status DC Lorazepam (Ativan Inj) 1 mg 1X ONCE IVP Last administered on 09/18/20at 22:29; Start 09/18/20 at 22:30; Stop 09/18/20 at 22:35; Status DC Iohexol (Omnipaque 300 Mg/ml) 60 ml 1X ONCE IV Last administered on 09/18/20at 23:15; Start 09/18/20 at 22:45; Stop 09/18/20 at 22:46; Status DC Info (CONTRAST GIVEN -- Rx MONITORING) 1 each PRN DAILY PRN MC SEE COMMENTS; Start 09/18/20 at 22:45; Stop 09/20/20 at 22:44; Status DC Piperacillin Sod/ Tazobactam Sod 3.375 gm/Sodium Chloride 50 ml @ 100 mls/hr 1X ONCE IV Last administered on 09/19/20at 00:32; Start 09/18/20 at 23:30; Stop 09/18/20 at 23:59; Status DC Sodium Chloride 1,000 ml @ 1,000 mls/hr 1X ONCE IV Last administered on 09/19/20at 00:32; Start 09/19/20 at 00:15; Stop 09/19/20 at 01:14; Status DC Ondansetron HCl (Zofran) 4 mg PRN Q8HRS PRN IV NAUSEA/VOMITING; Start 09/19/20 at 00:30; Stop 09/20/20 at 00:29; Status DC Sodium Chloride 1,000 ml @ 125 mls/hr 1X ONCE IV Last administered on 09/19/20at 01:37; Start 09/19/20 at 00:30; Stop 09/19/20 at 08:29; Status DC Olanzapine (ZyPREXA ZYDIS) 5 mg PRN BID PRN PO ANXIETY / AGITATION Last administered on 09/19/20at 15:15; Start 09/19/20 at 06:15 Psyllium Hydrophilic Mucilloid (Metamucil Fiber Packet) 1 pkt QHS PO Last administered on 09/19/20at 22:00; Start 09/19/20 at 21:00 Piperacillin Sod/ Tazobactam Sod 3.375 gm/Sodium Chloride 50 ml @ 100 mls/hr Q6HRS IV Last administered on 09/21/20at 05:52; Start 09/19/20 at 12:00 Piperacillin Sod/ Tazobactam Sod (Zosyn Per Pharmacy) 1 each PRN DAILY PRN MC SEE COMMENTS; Start 09/19/20 at 06:15 Sodium Chloride 1,000 ml @ 100 mls/hr Q10H IV Last administered on 09/19/20at 17:07; Start 09/19/20 at 06:15; Stop 09/20/20 at 12:58; Status DC Ondansetron HCl (Zofran) 4 mg PRN Q4HRS PRN IV NAUSEA/VOMITING; Start 09/19/20 at 06:15 Acetaminophen (Tylenol) 650 mg PRN Q4HRS PRN PO TEMP OVER 100.4F OR MILD PAIN; Start 09/19/20 at 06:15 Docusate Sodium (Colace) 100 mg PRN BID PRN PO HARD STOOLS; Start 09/19/20 at 06:15 Guaifenesin (Robitussin) 200 mg PRN Q4HRS PRN PO COUGH; Start 09/19/20 at 06:15 Piperacillin Sod/ Tazobactam Sod 3.375 gm/Sodium Chloride 50 ml @ 100 mls/hr ONCE ONCE IV Last administered on 09/19/20at 07:45; Start 09/19/20 at 07:30; Stop 09/19/20 at 07:59; Status DC Norepinephrine Bitartrate 8 mg/ Dextrose 258 ml @ 17.589 mls/ hr ONCE ONCE IV Last administered on 09/19/20at 08:27; Start 09/19/20 at 08:30; Stop 09/19/20 at 19:46; Status DC Norepinephrine Bitartrate 8 mg/ Dextrose 258 ml @ 17.589 mls/ hr CONT PRN IV PER PROTOCOL; Start 09/19/20 at 10:00; Stop 09/19/20 at 19:46; Status DC Sennosides (Senna) 17.2 mg PRN BID PRN PO CONSTIPATION; Start 09/19/20 at 12:00 Docusate Sodium (Colace) 100 mg PRN DAILY PRN PO HARD STOOLS; Start 09/19/20 at 12:00 Ondansetron HCl (Zofran) 4 mg PRN Q6HRS PRN IVP NAUSEA/VOMITING; Start 09/19/20 at 12:00 Dextrose (Dextrose 50%-Water Syringe) 12.5 gm PRN Q15MIN PRN IV SEE COMMENTS; Start 09/19/20 at 12:00 Sodium Chloride 1,000 ml @ 100 mls/hr Q10H IV Last administered on 09/21/20at 05:52; Start 09/19/20 at 12:00 Enoxaparin Sodium (Lovenox 30mg Syringe) 30 mg Q24H SQ Last administered on 09/19/20at 12:33; Start 09/19/20 at 12:30; Stop 09/20/20 at 07:55; Status DC Pantoprazole Sodium (PROTONIX VIAL for IV PUSH) 40 mg DAILYAC IVP Last administered on 09/20/20at 07:25; Start 09/19/20 at 12:00 Norepinephrine Bitartrate 8 mg/ Dextrose 258 ml @ 15.674 mls/ hr CONT PRN IV PER PROTOCOL Last administered on 09/19/20at 23:40; Start 09/19/20 at 19:45 Enoxaparin Sodium (Lovenox 40mg Syringe) 40 mg Q24H SQ Last administered on 09/20/20at 12:55; Start 09/20/20 at 12:00 Potassium Chloride (Klor-Con) 40 meq 1X ONCE PO Last administered on 09/20/20at 12:53; Start 09/20/20 at 12:30; Stop 09/20/20 at 12:45; Status DC Potassium Chloride (Klor-Con) 40 meq Q2H PO ; Start 09/20/20 at 12:30; Stop 09/20/20 at 14:31; Status UNV Potassium Chloride (Klor-Con) 40 meq Q2H PO ; Start 09/20/20 at 12:30; Stop 09/20/20 at 16:31; Status UNV Potassium Chloride/Water 100 ml @ 100 mls/hr Q1HR IV ; Start 09/20/20 at 13:00; Stop 09/20/20 at 18:59; Status UNV Magnesium Sulfate 100 ml @ 50 mls/hr DAILY IV ; Start 09/21/20 at 09:00; Stop 09/24/20 at 08:59; Status UNV Potassium Phos/ Sodium Phos (Phos-Nak) 1 pkt BID PO ; Start 09/20/20 at 21:00; Stop 09/21/20 at 09:01; Status UNV Sodium Phosphate 20 mmol/Sodium Chloride 256.6667 ml @ 62.5 mls/hr 1X ONCE IV ; Start 09/20/20 at 12:30; Stop 09/20/20 at 16:36; Status UNV Info (Icu Electrolyte Protocol) 1 ea CONT PRN PRN MC SEE COMMENTS; Start 09/20/20 at 12:45 Lactobacillus Rhamnosus (Culturelle) 1 cap BID PO Last administered on 09/20/20at 21:26; Start 09/20/20 at 21:00 Active Scripts Active Reported Klor-Con M20 (Potassium Chloride) 20 Meq Tab.er.prt 20 Meq PO DAILY Ondansetron Hcl 4 Mg Tablet 8 Mg PO PRN Q8HRS PRN Milk Of Magnesia (Magnesium Hydroxide) 400 Mg/5 Ml Oral.susp 400 Mg PO PRN DAILY PRN Bisacodyl 10 Mg Supp.rect 10 Mg RC PRN DAILY PRN Artificial Tears Eye Drops (Dextran 70/Hypromellose) 15 Ml Drops 1 Drop EACHEYE PRN QID PRN A and D Ointment (Vits A and D/White Pet/Lanolin) 42.5 Gm Oint...g. 42.5 Gm TP BID Flomax (Tamsulosin Hcl) 0.4 Mg Cap.er.24h 1 Cap PO DAILY Famotidine 20 Mg Tablet 20 Mg PO BID Miralax (Polyethylene Glycol 3350) 17 Gm Powd.pack 1 Packet PO DAILY PRN 2 Days dissolve in water Lisinopril 40 Mg Tablet 1 Tab PO DAILY Flonase Allergy Relief (Fluticasone Propionate) 9.9 Ml [place].susp 1 Sprays NS DAILY PRN Finasteride 5 Mg Tablet 1 Tab PO DAILY Ferrous Sulfate 325 Mg Tablet 1 Tab PO DAILY Tylenol (Acetaminophen) 325 Mg Tablet 500 Mg PO PRN Q6HRS PRN Centrum Complete Multivit Tab (Multivitamin/Iron/Folic Acid) 1 Each Tablet 1 Each PO DAILY Aspirin 325 Mg Tablet 1 Tab PO DAILY Docusate Sodium 100 Mg Capsule 100 Mg PO TID Hydrochlorothiazide Tablet (Hydrochlorothiazide) 25 Mg Tablet 1 Tab PO DAILY Amiodarone Hcl 200 Mg Tablet 1 Tab PO DAILY Simvastatin 20 Mg Tablet 1 Tab PO QHS Vitals/I & O Vital Sign - Last 24 Hours 09/20/20 09/20/20 09/20/20 09/20/20 08:00 08:00 09:00 10:00 Pulse 73 72 70 Resp 24 24 24 B/P (MAP) 151/70 (97) 125/50 (75) 98/74 (82) Pulse Ox 99 100 91 O2 Delivery Room Air Room Air Room Air Room Air 09/20/20 09/20/20 09/20/20 09/20/20 11:00 12:00 12:00 13:00 Temp 98.7 98.7 Pulse 72 80 91 Resp 24 26 24 B/P (MAP) 113/62 (79) 114/61 (78) 159/86 (110) Pulse Ox 99 100 99 O2 Delivery Room Air Room Air Room Air Room Air 09/20/20 09/20/20 09/20/20 09/20/20 14:00 15:00 16:00 16:00 Temp 98.5 98.5 Pulse 62 64 64 Resp 20 24 20 B/P (MAP) 101/56 (71) 112/57 (75) 105/55 (72) Pulse Ox 97 97 95 O2 Delivery Room Air Room Air Room Air Room Air 09/20/20 09/20/20 09/20/20 09/20/20 17:00 18:00 19:00 20:00 Pulse 67 69 72 Resp 30 B/P (MAP) 106/56 (73) 150/68 (95) 135/64 (87) Pulse Ox 95 96 98 O2 Delivery Room Air Room Air Room Air Room Air 09/20/20 09/20/20 09/20/20 09/20/20 20:00 20:15 21:00 22:00 Temp 98.8 98.8 Pulse 68 66 62 66 Resp B/P (MAP) 125/59 (81) 124/56 (78) 123/52 (75) 131/68 (89) Pulse Ox 98 98 98 98 O2 Delivery Room Air Room Air Room Air Room Air 09/20/20 09/21/20 09/21/20 09/21/20 23:00 00:00 00:00 01:00 Temp 98.3 98.3 Pulse 70 62 66 Resp B/P (MAP) 149/77 (101) 120/61 (80) 133/74 (93) Pulse Ox 98 99 99 O2 Delivery Room Air Room Air Room Air Room Air 09/21/20 09/21/20 09/21/20 09/21/20 02:00 03:00 04:00 04:00 Temp 98.7 98.7 Pulse 66 74 66 Resp B/P (MAP) 119/55 (76) 119/60 (79) 149/69 (95) Pulse Ox 98 98 98 O2 Delivery Room Air Room Air Room Air Room Air 09/21/20 09/21/20 05:00 06:03 Pulse 62 62 Resp B/P (MAP) 149/66 (93) 145/63 (90) Pulse Ox 98 99 O2 Delivery Room Air Room Air Intake and Output 09/20/20 09/20/20 09/21/20 15:00 23:00 07:00 Intake Total 50 ml 1823.8 ml 886 ml Output Total 175 ml 555 ml 410 ml Balance -125 ml 1268.8 ml 476 ml Justicifation of Admission Dx: Justifications for Admission: Justification of Admission Dx: Yes JUSTINO CAMPOS MD Sep 21, 2020 07:41
--- NOTE | 2020-09-21 08:25 | PDOC ---
Infectious Disease Note Subjective: Subjective Patient denies any complaints No fever nausea, vomiting,reported Vital Signs: Vital Signs Vital Signs Date Time Temp Pulse Resp B/P (MAP) Pulse Ox O2 Delivery O2 Flow Rate FiO2 09/21/20 06:03 62 26 145/63 (90) 99 Room Air 09/21/20 04:00 98.7 98.7 Physical Exam: PHYSICAL EXAM GENERAL: Alert, awake male, comfortable, in no acute distress, on room air. HEENT: Normocephalic, atraumatic, anicteric. Oral mucosa moist. NECK: Supple, no JVD. LUNGS: Clear bilaterally. No wheezing. HEART: S1, S2, no murmurs. ABDOMEN: Soft, nondistended, nontender. Bowel sounds present. EXTREMITIES: No edema, no cyanosis. DERMATOLOGIC: Warm, dry. No generalized rash. NEUROLOGIC: Alert, awake, hard of hearing. Moves all four extremities, though weak. PSYCHIATRIC: Cooperative, calm. Medications: Inpatient Meds: Current Medications Medications (Trade) Dose Ordered Sig/Richi Start Time Stop Time Status Last Admin Dose Admin Acetaminophen (Tylenol) 650 mg PRN Q4HRS PRN 09/19/20 06:15 Dextrose (Dextrose 50%-Water Syringe) 12.5 gm PRN Q15MIN PRN 09/19/20 12:00 Docusate Sodium (Colace) 100 mg PRN DAILY PRN 09/19/20 12:00 Enoxaparin Sodium (Lovenox 30mg Syringe) 30 mg Q24H 09/19/20 12:30 09/20/20 07:55 DC 09/19/20 12:33 30 MG Enoxaparin Sodium (Lovenox 40mg Syringe) 40 mg Q24H 09/20/20 12:00 09/20/20 12:55 40 MG Guaifenesin (Robitussin) 200 mg PRN Q4HRS PRN 09/19/20 06:15 Info (CONTRAST GIVEN -- Rx MONITORING) 1 each PRN DAILY PRN 09/18/20 22:45 09/20/20 22:44 DC Info (Icu Electrolyte Protocol) 1 ea CONT PRN PRN 09/20/20 12:45 Iohexol (Omnipaque 300 Mg/ml) 60 ml 1X ONCE 09/18/20 22:45 09/18/20 22:46 DC 09/18/20 23:15 60 ML Lactobacillus Rhamnosus (Culturelle) 1 cap BID 09/20/20 21:00 09/20/20 21:26 1 CAP Lorazepam (Ativan Inj) 1 mg 1X ONCE 09/18/20 22:30 09/18/20 22:35 DC 09/18/20 22:29 1 MG Magnesium Sulfate 100 ml @ 50 mls/hr DAILY 09/21/20 09:00 09/24/20 08:59 UNV Morphine Sulfate (Morphine Sulfate) 4 mg 1X ONCE 09/18/20 22:00 09/18/20 22:01 DC 09/18/20 22:10 4 MG Norepinephrine Bitartrate 8 mg/ Dextrose 258 ml @ 15.674 mls/ hr CONT PRN 09/19/20 19:45 09/19/20 23:40 15.674 MLS/HR Olanzapine (ZyPREXA ZYDIS) 5 mg PRN BID PRN 09/19/20 06:15 09/19/20 15:15 5 MG Ondansetron HCl (Zofran) 4 mg PRN Q6HRS PRN 09/19/20 12:00 Pantoprazole Sodium (PROTONIX VIAL for IV PUSH) 40 mg DAILYAC 09/19/20 12:00 09/20/20 07:25 40 MG Piperacillin Sod/ Tazobactam Sod (Zosyn Per Pharmacy) 1 each PRN DAILY PRN 09/19/20 06:15 Piperacillin Sod/ Tazobactam Sod 3.375 gm/Sodium Chloride 50 ml @ 100 mls/hr ONCE ONCE 09/19/20 07:30 09/19/20 07:59 DC 09/19/20 07:45 100 MLS/HR Potassium Chloride/Water 100 ml @ 100 mls/hr Q1HR 09/20/20 13:00 09/20/20 18:59 UNV Potassium Chloride (Klor-Con) 40 meq Q2H 09/20/20 12:30 09/20/20 16:31 UNV Potassium Phos/ Sodium Phos (Phos-Nak) 1 pkt BID 09/20/20 21:00 09/21/20 09:01 UNV Psyllium Hydrophilic Mucilloid (Metamucil Fiber Packet) 1 pkt QHS 09/19/20 21:00 09/19/20 22:00 1 PKT Sennosides (Senna) 17.2 mg PRN BID PRN 09/19/20 12:00 Sodium Chloride 1,000 ml @ 100 mls/hr Q10H 09/19/20 12:00 09/21/20 05:52 100 MLS/HR Sodium Phosphate 20 mmol/Sodium Chloride 256.6667 ml @ 62.5 mls/hr 1X ONCE 09/20/20 12:30 09/20/20 16:36 UNV Labs: Lab Laboratory Tests Test 09/20/20 10:10 White Blood Count 29.6 x10^3/uL (4.0-11.0) Red Blood Count 3.28 x10^6/uL (4.30-5.70) Hemoglobin 9.5 g/dL (13.0-17.5) Hematocrit 29.3 % (39.0-53.0) Mean Corpuscular Volume 89 fL (79-100) Mean Corpuscular Hemoglobin 29 pg (25-35) Mean Corpuscular Hemoglobin Concent 33 g/dL (31-37) Red Cell Distribution Width 16.2 % (11.5-14.5) Platelet Count 193 x10^3/uL (140-400) Neutrophils (%) (Auto) 93 % (31-73) Lymphocytes (%) (Auto) 3 % (24-48) Monocytes (%) (Auto) 4 % (0-9) Eosinophils (%) (Auto) 0 % (0-3) Basophils (%) (Auto) 0 % (0-3) Neutrophils # (Auto) 27.5 x10^3/uL (1.8-7.7) Lymphocytes # (Auto) 0.9 x10^3/uL (1.0-4.8) Monocytes # (Auto) 1.1 x10^3/uL (0.0-1.1) Eosinophils # (Auto) 0.0 x10^3/uL (0.0-0.7) Basophils # (Auto) 0.1 x10^3/uL (0.0-0.2) Sodium Level 144 mmol/L (136-145) Potassium Level 3.2 mmol/L (3.5-5.1) Chloride Level 110 mmol/L (98-107) Carbon Dioxide Level 21 mmol/L (21-32) Anion Gap 13 (6-14) Blood Urea Nitrogen 45 mg/dL (8-26) Creatinine 1.4 mg/dL (0.7-1.3) Estimated GFR (Cockcroft-Gault) 47.9 Glucose Level 124 mg/dL (70-99) Lactic Acid Level 1.8 mmol/L (0.4-2.0) Calcium Level 7.8 mg/dL (8.5-10.1) Phosphorus Level 2.8 mg/dL (2.6-4.7) Magnesium Level 2.0 mg/dL (1.8-2.4) Cortisol AM Sample 27.7 ug/dL (4.3-22.4) Objective: Assessment: 1. Sepsis from gram-negative bacteremia. 2. Proteus mirabilis bacteremia source appears genitourinary. 3. Urinary tract infection with chronic indwelling Hanna, status post exchange in ED.UC contaminant, 4. Leukocytosis. 5. Fever. 6. Bilateral hydronephrosis with distended bladder. 7. BPH. 8. Chronic indwelling Hanna. 9. A 1.8 cm right adrenal gland nodule. 10. Sclerotic lesion at the right symphysis pubis on CT. 11. Hard of hearing. 12. Protein-calorie malnutrition. Plan: Plan of Care 1. Continue Zosyn. 2. Hanna has been exchanged. Repeat UC 3. Follow up blood culture and urine culture. 4. Continue supportive care. 5. If patient's condition does not improve or deteriorates, , he will need Urology evaluation and transfer to other facility as Urology is not available at this center. D/W ROBBIE CABALLERO MD Sep 21, 2020 08:25
[2020-09-21] MEDS ORDERED: MAGNESIUM SULFATE 4GM 100 ML IV SCH (09:00)
[2020-09-21] MEDS: PANTOPRAZOLE IV PUSH 40 MG VIAL. IVP SCH (09:11)
[2020-09-21] MEDS: LACTOBACILLUS RHAMNOSUS GG 1 CAPSULE. PO SCH ×2 (09:11→20:45)
[2020-09-21 09:28] LABS: BASO # 0.1 x10^3/uL (0.0-0.2); BASO % 0 % (0-3); EOS # 0.3 x10^3/uL (0.0-0.7); EOS % 2 % (0-3); HEMATOCRIT 30.4 % (39.0-53.0); HEMOGLOBIN 9.6 g/dL (13.0-17.5); LYMPH % 5 % (24-48); MEAN CORPUSCULAR HEMOGLOBIN 29 pg (25-35); MEAN CORPUSCULAR HGB CONC 32 g/dL (31-37); MEAN CORPUSCULAR VOLUME 90 fL (79-100); MONO # 0.8 x10^3/uL (0.0-1.1); MONO % 4 % (0-9); NEUT % 90 % (31-73); PLATELET COUNT 162 x10^3/uL (140-400); RED BLOOD COUNT 3.38 x10^6/uL (4.30-5.70); RED CELL DISTRIBUTION WIDTH 15.7 % (11.5-14.5); WHITE BLOOD COUNT 21.2 x10^3/uL (4.0-11.0)
[2020-09-21 09:44] LABS: ALBUMIN 1.8 g/dL (3.4-5.0); ALBUMIN/GLOBULIN RATIO 0.5 (1.0-1.7); CALCIUM 7.9 mg/dL (8.5-10.1); CREATININE 1.1 mg/dL (0.7-1.3); GFR 63.3; POTASSIUM 3.5 mmol/L (3.5-5.1); TOTAL BILIRUBIN 0.6 mg/dL (0.2-1.0); TOTAL PROTEIN 5.4 g/dL (6.4-8.2)
[2020-09-21] MEDS ORDERED: VITS A & D/LANOLIN TOPICAL OINTMENT 42GM TUBE. TP PRN (11:15)
[2020-09-21] MEDS: IPRATRPIUM/ALBUTEROL 0.5/2.5MG 3 ML NEBU. NEB SCH ×3 (11:28→20:17)
--- NOTE | 2020-09-21 11:55 | PDOC2 ---
SHERITA HAMILTON SPLICER APPRENTICE 09/21/20 1155: CARDIAC CONSULT DATE OF CONSULT Date of Consult DATE: 09/21/20 TIME: 11:47 REASON FOR CONSULT Reason for Consult: Elevated troponin REFERRING PHYSICIAN Referring Physician: Dr. Guillen SOURCE Source: Chart review, Patient HISTORY OF PRESENT ILLNESS HISTORY OF PRESENT ILLNESS This is an 85 yo male who presented from [place] secondary to abdominal pain and back pain. Worse on the left side as well as lumbar back pain that is not as severe. Was COVID + 3 weeks ago. UA + for UTI. Troponin noted to be mildly elevated, which prompted this consult. Denies any chest pain, palpitations, dizziness, diaphoresis, or shortness of breath. Difficult to obtain history from patient as he is very ASA[place]MI[place]. PAST MEDICAL HISTORY Cardiovascular: AFIB, HTN, Hyperlipidemia CENTRAL NERVOUS SYSTEM: Other (brain tumor s/p removal ) GI: GERD Musculoskeletal: Osteoarthritis Renal/: UTI (urinary retention with chronic munroe ) PAST SURGICAL HISTORY Past Surgical History: Other (back surgery, tumor removed from brain ) FAMILY HISTORY Family History: Other (noncontributory to age ) SOCIAL HISTORY Smoke: No ALCOHOL: none Drugs: None Lives: Alf CURRENT MEDICATIONS CURRENT MEDICATIONS Current Medications Medications (Trade) Dose Ordered Sig/Richi Route PRN Reason Start Time Stop Time Status Last Admin Dose Admin Enoxaparin Sodium (Lovenox 40mg Syringe) 40 mg Q24H SQ 09/20/20 12:00 09/20/20 12:55 Potassium Chloride (Klor-Con) 40 meq 1X ONCE PO 09/20/20 12:30 09/20/20 12:45 DC 09/20/20 12:53 Lactobacillus Rhamnosus (Culturelle) 1 cap BID PO 09/20/20 21:00 09/21/20 09:11 ALLERGIES ALLERGIES: Coded Allergies: No Known Drug Allergies (Unverified , 08/29/13) ROS Review of System 14 point ROS conducted with pertinent positives noted above in HPI PHYSICAL EXAM General: Alert, Oriented X3, Cooperative, No acute distress HEENT: Atraumatic, Mucous membr. moist/pink, Other (ASA'CARSARMIUT) Lungs: Other (diminished bases ) Heart: Regular rate, Other (distant heart tones ) Extremities: No edema Skin: No significant lesion Neuro: Normal speech, Sensation intact Psych/Mental Status: Mental status NL, Mood NL MUSCULOSKELETAL: Osteoarthritic changes both hands VITALS/I&O VITALS/I&O: Vital Signs Date Time Temp Pulse Resp B/P (MAP) Pulse Ox O2 Delivery O2 Flow Rate FiO2 09/21/20 11:29 97 Room Air 09/21/20 06:03 62 26 145/63 (90) 09/21/20 04:00 98.7 98.7 I & O 09/20/20 09/20/20 09/21/20 15:00 23:00 07:00 Intake Total 50 ml 1823.8 ml 886 ml Output Total 175 ml 555 ml 410 ml Balance -125 ml 1268.8 ml 476 ml LABS Lab: Laboratory Tests Test 09/21/20 08:35 White Blood Count 21.2 x10^3/uL (4.0-11.0) H Red Blood Count 3.38 x10^6/uL (4.30-5.70) L Hemoglobin 9.6 g/dL (13.0-17.5) L Hematocrit 30.4 % (39.0-53.0) L Mean Corpuscular Volume 90 fL (79-100) Mean Corpuscular Hemoglobin 29 pg (25-35) Mean Corpuscular Hemoglobin Concent 32 g/dL (31-37) Red Cell Distribution Width 15.7 % (11.5-14.5) H Platelet Count 162 x10^3/uL (140-400) Neutrophils (%) (Auto) 90 % (31-73) H Lymphocytes (%) (Auto) 5 % (24-48) L Monocytes (%) (Auto) 4 % (0-9) Eosinophils (%) (Auto) 2 % (0-3) Basophils (%) (Auto) 0 % (0-3) Neutrophils # (Auto) 19.0 x10^3/uL (1.8-7.7) H Lymphocytes # (Auto) 1.0 x10^3/uL (1.0-4.8) Monocytes # (Auto) 0.8 x10^3/uL (0.0-1.1) Eosinophils # (Auto) 0.3 x10^3/uL (0.0-0.7) Basophils # (Auto) 0.1 x10^3/uL (0.0-0.2) Sodium Level 147 mmol/L (136-145) H Potassium Level 3.5 mmol/L (3.5-5.1) Chloride Level 114 mmol/L (98-107) H Carbon Dioxide Level 22 mmol/L (21-32) Anion Gap 11 (6-14) Blood Urea Nitrogen 44 mg/dL (8-26) H Creatinine 1.1 mg/dL (0.7-1.3) Estimated GFR (Cockcroft-Gault) 63.3 BUN/Creatinine Ratio 40 (6-20) H Glucose Level 96 mg/dL (70-99) Calcium Level 7.9 mg/dL (8.5-10.1) L Total Bilirubin 0.6 mg/dL (0.2-1.0) Aspartate Amino Transferase (AST) 40 U/L (15-37) H Alanine Aminotransferase (ALT) 43 U/L (16-63) Alkaline Phosphatase 119 U/L (46-116) H Troponin I Quantitative 0.019 ng/mL (0.000-0.055) Total Protein 5.4 g/dL (6.4-8.2) L Albumin 1.8 g/dL (3.4-5.0) L Albumin/Globulin Ratio 0.5 (1.0-1.7) L Laboratory Tests 09/21/20 08:35 Laboratory Tests 09/21/20 08:35 ECHOCARDIOGRAM ECHOCARDIOGRAM <Conclusion> The left ventricle is normal size. The left ventricle is normal size. The left ventricular systolic function is normal. Left ventricular ejection fraction is 55-60%. There is mild concentric left ventricular hypertrophy. There is no significant aortic valvular stenosis. Doppler and Color Flow revealed trace aortic regurgitation. Doppler and Color-flow revealed trace to mild mitral regurgitation. Doppler and Color Flow revealed no tricuspid valve regurgitation noted. DATE: 01/02/19 1233 STRESS TEST STRESS TEST Conclusion 1. Regadenoson cardioisotope stress test did not show any evidence of ischemia or infarct. 2. Normal left ventricular systolic function with ejection fraction calculated at 84%. 3. Low risk for cardiac events. DATE: 03/23/16 1407 ASSESSMENT/PLAN ASSESSMENT/PLAN 1. Abdominal pain; CT abd/pelvis with cholelithiasis and possible bladder outlet obstruction. US negative for hydronephrosis. 2. UTI with history of urinary retention and chronic munroe. 3. Leukocytosis, fever, sepsis 4. Bacteremia; BC with GNR 2/4 5. Mild troponin elevation; peak 0.09. Most probably type II, demand ischemia secondary to above. CP free. EKG without significant changes as compared to study 06/09/20 6. PAFIB; presently SR 7. Hypertension; BP low end. Off pressor support 8. Hyperlipidemia 9. Anemia Recommendations Resume ASA Lipids Echo ordered to assess LV systolic function Resume amiodarone for rhythm maintenance Not on BB. Monitor rhythm, rate Hold lisinopril as warranted for hypotension Antibiotics therapy as per ID Supportive care BAMBI TAY MD 09/21/20 1519: CARDIAC CONSULT ASSESSMENT/PLAN ASSESSMENT/PLAN Patient seen and examined. Agree with SEX WORKER OR ESCORT's assessment and plan. Slight troponin elevation probably demand ischemia. 2D echo showed normal LV systolic function without any wall motion abnormalities. Ischemic work-up could be considered as an outpatient. PAF, presently in sinus rhythm. Agree with resuming amiodarone for rhythm maintenance. The option of oral anticoagulation for stroke prophylaxis was discussed several times in the past with patient but he declined it. Continue aspirin for stroke prophylaxis. Continue antibiotics for UTI/sepsis/bacteremia per ID team. Thank you for your consultation SHERITA HAMILTON APRN Sep 21, 2020 11:55 BAMBI TAY MD Sep 21, 2020 15:19
[2020-09-21] MEDS: ENOXAPARIN 40 MG/0.4 ML SYRINGE. SQ SCH (12:00)
--- NOTE | 2020-09-21 12:18 | EKG ---
[facility] [address] [place] [address] Test Date: 2020-09-18 Test Time: 22:00:55 Pat Name: JEF SOTO Department: Room: Gender: M Spanish Instructor: : 1935 Requested By: VINCENT CHAPA Order Number: [id number] Reading MD: Measurements Intervals [place] Rate: 93 P: 120 HI: 238 QRS: -73 QRSD: 146 T: 34 QT: 378 QTc: 473 Interpretive Statements SINUS RHYTHM PROLONGED HI INTERVAL ABNORMAL LEFT AXIS DEVIATION LEFT ANTERIOR FASCICULAR BLOCK RIGHT BUNDLE BRANCH BLOCK BIFASCICULAR BLOCK RVH WITH REPOLARIZATION ABNORMALITY QRS(T) CONTOUR ABNORMALITY CONSIDER ANTEROSEPTAL MYOCARDIAL DAMAGE ABNORMAL ECG RI6.02 No previous ECG available for comparison
--- NOTE | 2020-09-21 14:55 | CARD ---
MR#: [id number] Date of Study: 09/21/2020 Ordering Physician: JUSTINO CAMPOS, Referring Physician: JUSTINO CAMPOS Tech: Catherine Quintanilla [facility] APPROVED REPORT EXAM: Two-dimensional and M-mode echocardiogram with Doppler and color Doppler. Other Information Quality : PoorTechnically LimitedHR: 69bpm Technically limited study due to body habitus, patient uncooperative INDICATION Dyspnea Echo Enhancing Agent Indication: Endocardial border delineation Agent/Amount Used: Optison 4mL RISK FACTORS Hypertension Hyperlipidemia 2D DIMENSIONS Left Atrium(2D)3.9 (1.6-4.0cm)IVSd1.3 (0.7-1.1cm) Aortic Root(2D)3.7 (2.0-3.7cm)LVDd4.6 (3.9-5.9cm) LVOT Diameter2.5 (1.8-2.4cm)PWd1.2 (0.7-1.1cm) LVDs3.1 (2.5-4.0cm)FS (%) 31.7 % SV56.8 mlLVEF(%)59.7 (>50%) Aortic Valve AoV Peak Derek.104.0cm/sAoV VTI26.7cm AO Peak GR.4.3mmHgLVOT Peak Derek.90.0cm/s AO Mean GR.2mmHgAVA (VMAX)4.38cm2 Mitral Valve MV E Ooaaythz68.7cm/sMV DECEL [id number] MV A Uzbmutzf170.6cm/sE/A Ratio0.8 Pulmonary Valve PV Peak Atboemfr01.1cm/s Tricuspid Valve TR P. Qgecbzud223zx/sTR Peak Gr.32mmHg LEFT VENTRICLE The left ventricle is normal size. There is borderline concentric left ventricular hypertrophy. The l eft ventricular systolic function is normal. Estimated ejection fraction 55-60%. There is normal LV segmental wall motion. Transmitral Doppler flow pattern is Grade I-abnormal relaxation pattern. RIGHT VENTRICLE The right ventricle is normal size. There is normal right ventricular wall thickness. The right ventr icular systolic function is normal. ATRIA The left atrium appears mildly dilated. The right atrium appears mildy dialated. AORTIC VALVE Not well visualized but appears to open normally with normal velocity. Doppler and Color Flow reveale d no significant aortic regurgitation. There is no significant aortic valvular stenosis. MITRAL VALVE Mitral annular calcification. There is no evidence of mitral valve prolapse. There is no mitral valve stenosis. Doppler and Color-flow revealed mild mitral regurgitation. TRICUSPID VALVE The tricuspid valve is normal in structure and function. Doppler and Color Flow revealed trace tricus pid valve regurgitation. There is no tricuspid valve stenosis. PULMONIC VALVE The pulmonary valve is normal in structure and function. Doppler and Color Flow revealed no pulmonic valvular regurgitation. GREAT VESSELS The aortic root is normal in size. The IVC is normal in size and collapses >50% with inspiration. PERICARDIAL EFFUSION There is no evidence of significant pericardial effusion. Critical Notification Critical Value: No <Conclusion> The left ventricular systolic function is normal. Estimated ejection fraction 55-60%. There is normal LV segmental wall motion. Transmitral Doppler flow pattern is Grade I-abnormal relaxation pattern. Mild mitral regurgitation. Trace tricuspid valve regurgitation. There is no evidence of significant pericardial effusion. Signed by : Alexsander Alonzo, Electronically Approved : 09/21/2020 14:54:49
[2020-09-21] MEDS: ACETAMINOPHEN 325 MG TABLET. PO PRN (14:56)
[2020-09-21] MEDS: ASPIRIN 325 MG TABLET PO SCH ×2 (15:40→15:47)
[2020-09-21] MEDS: AMIODARONE HCL 200 MG TABLET. PO SCH ×2 (15:40→15:47)
--- NOTE | 2020-09-21 17:12 | RAD ---
XR CHEST 1V INDICATION: Reason: SEPSIS / Spl. Instructions: / History: . COMPARISON STUDY: 11/11/2015. FINDINGS: Lungs: Normal lung volume. Bilateral perihilar opacities. Indistinct pulmonary vasculature. Pleura: Small left pleural effusion. Heart and Mediastinum: Cardiomegaly. Tortuosity of the thoracic aorta. IMPRESSION: 1. Bilateral perihilar opacities, likely edema or multifocal infection. 2. Small left pleural effusion. Electronically signed by: Favian Arrieta MD (09/21/2020 5:09 PM) [id number]
[2020-09-21] MEDS: SIMVASTATIN 20 MG TABLET PO SCH (20:45)
[2020-09-21] MEDS: PSYLLIUM HUSK (SUGAR FREE) 1 PKT PACKET PO SCH (20:45)
[2020-09-22 00:01] VITALS: BP 120/54
[2020-09-22] MEDS: PIPERACILLIN/TAZOBACTAM 3.375 GM in IV NORMAL SALINE 50ML 50 ML IV SCH ×5 (00:10→23:11)
[2020-09-22 04:00] VITALS: BP 148/66
[2020-09-22] MEDS: IV NORMAL SALINE 1000ML BAG 1,000 ML IV SCH (04:28)
--- NOTE | 2020-09-22 07:20 | PDOC ---
Infectious Disease Note Subjective: Subjective Patient denies any complaints no acute issues per discussion with RN Vital Signs: Vital Signs Vital Signs Date Time Temp Pulse Resp B/P (MAP) Pulse Ox O2 Delivery O2 Flow Rate FiO2 09/22/20 04:00 97.5 55 20 148/66 (93) 98 Room Air 97.5 Physical Exam: PHYSICAL EXAM GENERAL: Alert, awake male, comfortable, in no acute distress, on room air. HEENT: Normocephalic, atraumatic, anicteric. Oral mucosa moist. NECK: Supple, no JVD. LUNGS: Clear bilaterally. No wheezing. HEART: S1, S2, ABDOMEN: Soft, nondistended, nontender. Bowel sounds present. EXTREMITIES: No edema, no cyanosis. DERMATOLOGIC: Warm, dry. No generalized rash. NEUROLOGIC: Alert, awake, hard of hearing. Moves all four extremities, though weak. PSYCHIATRIC: Cooperative, calm. Medications: Inpatient Meds: Current Medications Medications (Trade) Dose Ordered Sig/Richi Start Time Stop Time Status Last Admin Dose Admin Acetaminophen (Tylenol) 650 mg PRN Q4HRS PRN 09/19/20 06:15 09/21/20 14:56 650 MG Albuterol/ Ipratropium (Duoneb) 3 ml RTQID 09/21/20 12:00 09/21/20 20:17 3 ML Amiodarone HCl (Cordarone) 200 mg DAILY 09/21/20 16:00 09/21/20 15:47 200 MG Aspirin (Rhianna Aspirin) 325 mg DAILY 09/21/20 16:00 09/21/20 15:47 325 MG Dextrose (Dextrose 50%-Water Syringe) 12.5 gm PRN Q15MIN PRN 09/19/20 12:00 Docusate Sodium (Colace) 100 mg PRN DAILY PRN 09/19/20 12:00 Enoxaparin Sodium (Lovenox 30mg Syringe) 30 mg Q24H 09/19/20 12:30 09/20/20 07:55 DC 09/19/20 12:33 30 MG Enoxaparin Sodium (Lovenox 40mg Syringe) 40 mg Q24H 09/20/20 12:00 09/21/20 12:00 40 MG Guaifenesin (Robitussin) 200 mg PRN Q4HRS PRN 09/19/20 06:15 Info (CONTRAST GIVEN -- Rx MONITORING) 1 each PRN DAILY PRN 09/18/20 22:45 09/20/20 22:44 DC Info (Icu Electrolyte Protocol) 1 ea CONT PRN PRN 09/20/20 12:45 Iohexol (Omnipaque 300 Mg/ml) 60 ml 1X ONCE 09/18/20 22:45 09/18/20 22:46 DC 09/18/20 23:15 60 ML Lactobacillus Rhamnosus (Culturelle) 1 cap BID 09/20/20 21:00 09/21/20 20:45 1 CAP Lorazepam (Ativan Inj) 1 mg 1X ONCE 09/18/20 22:30 09/18/20 22:35 DC 09/18/20 22:29 1 MG Magnesium Sulfate 100 ml @ 50 mls/hr DAILY 09/21/20 09:00 09/24/20 08:59 UNV Morphine Sulfate (Morphine Sulfate) 4 mg 1X ONCE 09/18/20 22:00 09/18/20 22:01 DC 09/18/20 22:10 4 MG Norepinephrine Bitartrate 8 mg/ Dextrose 258 ml @ 15.674 mls/ hr CONT PRN 09/19/20 19:45 09/19/20 23:40 15.674 MLS/HR Olanzapine (ZyPREXA ZYDIS) 5 mg PRN BID PRN 09/19/20 06:15 09/19/20 15:15 5 MG Ondansetron HCl (Zofran) 4 mg PRN Q6HRS PRN 09/19/20 12:00 Pantoprazole Sodium (PROTONIX VIAL for IV PUSH) 40 mg DAILYAC 09/19/20 12:00 09/21/20 09:11 40 MG Piperacillin Sod/ Tazobactam Sod (Zosyn Per Pharmacy) 1 each PRN DAILY PRN 09/19/20 06:15 Piperacillin Sod/ Tazobactam Sod 3.375 gm/Sodium Chloride 50 ml @ 100 mls/hr ONCE ONCE 09/19/20 07:30 09/19/20 07:59 DC 09/19/20 07:45 100 MLS/HR Potassium Chloride/Water 100 ml @ 100 mls/hr Q1HR 09/20/20 13:00 09/20/20 18:59 UNV Potassium Chloride (Klor-Con) 40 meq Q2H 09/20/20 12:30 09/20/20 16:31 UNV Potassium Phos/ Sodium Phos (Phos-Nak) 1 pkt BID 09/20/20 21:00 09/21/20 09:01 UNV Psyllium Hydrophilic Mucilloid (Metamucil Fiber Packet) 1 pkt QHS 09/19/20 21:00 09/19/20 22:00 1 PKT Sennosides (Senna) 17.2 mg PRN BID PRN 09/19/20 12:00 Simvastatin (Zocor) 20 mg QHS 09/21/20 21:00 09/21/20 20:45 20 MG Sodium Chloride 1,000 ml @ 50 mls/hr Q20H 09/19/20 12:00 09/22/20 04:28 50 MLS/HR Sodium Phosphate 20 mmol/Sodium Chloride 256.6667 ml @ 62.5 mls/hr 1X ONCE 09/20/20 12:30 09/20/20 16:36 UNV Vancomycin HCl (Vancomycin Oral Solution) 125 mg BID 09/22/20 09:00 UNV Vitamin A/Vitamin D (Vitamin A & D Ointment) 1 kortney PRN Q1HR PRN 09/21/20 11:15 09/21/20 16:58 1 KORTNEY Labs: Lab Laboratory Tests Test 09/21/20 08:35 White Blood Count 21.2 x10^3/uL (4.0-11.0) Red Blood Count 3.38 x10^6/uL (4.30-5.70) Hemoglobin 9.6 g/dL (13.0-17.5) Hematocrit 30.4 % (39.0-53.0) Mean Corpuscular Volume 90 fL (79-100) Mean Corpuscular Hemoglobin 29 pg (25-35) Mean Corpuscular Hemoglobin Concent 32 g/dL (31-37) Red Cell Distribution Width 15.7 % (11.5-14.5) Platelet Count 162 x10^3/uL (140-400) Neutrophils (%) (Auto) 90 % (31-73) Lymphocytes (%) (Auto) 5 % (24-48) Monocytes (%) (Auto) 4 % (0-9) Eosinophils (%) (Auto) 2 % (0-3) Basophils (%) (Auto) 0 % (0-3) Neutrophils # (Auto) 19.0 x10^3/uL (1.8-7.7) Lymphocytes # (Auto) 1.0 x10^3/uL (1.0-4.8) Monocytes # (Auto) 0.8 x10^3/uL (0.0-1.1) Eosinophils # (Auto) 0.3 x10^3/uL (0.0-0.7) Basophils # (Auto) 0.1 x10^3/uL (0.0-0.2) Sodium Level 147 mmol/L (136-145) Potassium Level 3.5 mmol/L (3.5-5.1) Chloride Level 114 mmol/L (98-107) Carbon Dioxide Level 22 mmol/L (21-32) Anion Gap 11 (6-14) Blood Urea Nitrogen 44 mg/dL (8-26) Creatinine 1.1 mg/dL (0.7-1.3) Estimated GFR (Cockcroft-Gault) 63.3 BUN/Creatinine Ratio 40 (6-20) Glucose Level 96 mg/dL (70-99) Calcium Level 7.9 mg/dL (8.5-10.1) Total Bilirubin 0.6 mg/dL (0.2-1.0) Aspartate Amino Transf (AST/SGOT) 40 U/L (15-37) Alanine Aminotransferase (ALT/SGPT) 43 U/L (16-63) Alkaline Phosphatase 119 U/L (46-116) Troponin I Quantitative 0.019 ng/mL (0.000-0.055) Total Protein 5.4 g/dL (6.4-8.2) Albumin 1.8 g/dL (3.4-5.0) Albumin/Globulin Ratio 0.5 (1.0-1.7) Objective: Assessment: 1. Sepsis from gram-negative bacteremia. 2. Proteus mirabilis bacteremia source appears genitourinary. 3. Urinary tract infection with chronic indwelling Hanna, status post exchange in ED.UC contaminant, 4. Leukocytosis. 5. Fever. resolved 6. Bilateral hydronephrosis with distended bladder.no hydronephrosis on ultrasound 7. BPH. 8. Chronic indwelling Hanna. 9. A 1.8 cm right adrenal gland nodule. 10. Sclerotic lesion at the right symphysis pubis on CT. 11. Hard of hearing. 12. Protein-calorie malnutrition. 13. H/O COVID 19 3 weeks ago 14 Increaed troponin, likely demand ischemia 15. . PAFIB 16. Hypertension , Hyperlipidemia 17. Anemia on amiodarone Plan: Plan of Care 1. Continue Zosyn for now.Monitor WBC, improving 2. Hanna has been exchanged. Repeat UC pending 3. Follow up blood culture and urine culture.Monitor labs 4. Continue supportive care. 5. If patient's condition does not improve or deteriorates, , he will need Urology evaluation and transfer to other facility as Urology is not available at this center. D/W ROBBIE CABALLERO MD Sep 22, 2020 07:20
[2020-09-22 07:30] LABS: BASO % 0 % (0-3); EOS # 0.5 x10^3/uL (0.0-0.7); EOS % 4 % (0-3); HEMATOCRIT 29.8 % (39.0-53.0); HEMOGLOBIN 9.6 g/dL (13.0-17.5); LYMPH # 1.1 x10^3/uL (1.0-4.8); LYMPH % 8 % (24-48); MEAN CORPUSCULAR HEMOGLOBIN 29 pg (25-35); MEAN CORPUSCULAR HGB CONC 32 g/dL (31-37); MEAN CORPUSCULAR VOLUME 89 fL (79-100); MONO # 0.5 x10^3/uL (0.0-1.1); MONO % 4 % (0-9); NEUT # 11.2 x10^3/uL (1.8-7.7); NEUT % 84 % (31-73); PLATELET COUNT 152 x10^3/uL (140-400); RED BLOOD COUNT 3.33 x10^6/uL (4.30-5.70); RED CELL DISTRIBUTION WIDTH 16.4 % (11.5-14.5); WHITE BLOOD COUNT 13.3 x10^3/uL (4.0-11.0)
[2020-09-22 07:48] LABS: ALBUMIN 1.8 g/dL (3.4-5.0); ALBUMIN/GLOBULIN RATIO 0.5 (1.0-1.7); GFR 70.7; POTASSIUM 3.5 mmol/L (3.5-5.1); TOTAL BILIRUBIN 0.4 mg/dL (0.2-1.0); TOTAL PROTEIN 5.1 g/dL (6.4-8.2)
[2020-09-22 08:00] VITALS: BP 148/66
[2020-09-22] MEDS: IPRATRPIUM/ALBUTEROL 0.5/2.5MG 3 ML NEBU. NEB SCH ×4 (08:17→20:00)
[2020-09-22] MEDS: PANTOPRAZOLE IV PUSH 40 MG VIAL. IVP SCH (08:44)
[2020-09-22] MEDS: ASPIRIN 325 MG TABLET PO SCH (08:45)
[2020-09-22] MEDS: AMIODARONE HCL 200 MG TABLET. PO SCH (08:45)
[2020-09-22] MEDS: LACTOBACILLUS RHAMNOSUS GG 1 CAPSULE. PO SCH ×2 (08:45→19:54)
--- NOTE | 2020-09-22 08:57 | PDOC ---
PROGRESS NOTES Date of Service: DATE: 09/22/20 TIME: 08:[address] ABD/PELVIS IMPRESSION: 1. Distended bladder with moderate bilateral hydronephrosis. Findings are concerning for bladder outlet obstruction. Hanna is noted within the bladder. Correlate for Hanna dysfunction. 2. Cholelithiasis. 3. A 1.8 cm nodule in the right adrenal gland, incompletely characterized on this exam. This can be better evaluated with nonemergent adrenal protocol CT or MRI. 4. Sclerotic lesion at the right pubic symphysis. Correlate with malignancy history. impression Assessment/Plan Sepsis due to UTI gram neg bacteremia Hemodynamic instability Acute UTI secondary to bladder outlet obstruction No hydronephrosis. 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 cxr 09-21 plan Admit to ICU Exchange Hanna catheter and flushed appropriately empiric IV antibiotics blood and urine cultures Judicious IV fluids Continue Levophed for vasopressor support map goal of 65 Strict I's and O's A.m. cortisol level and TSH Repeat troponin Heparin for DVT prophylaxis Protonix GI prophylaxis ADA diet Full code Discussed with RN and SW glenn qid cardiology consult covid pcr BLADDER SCAN PROTOCOL BY US No hydronephrosis. ID CONSULT, REPEAT BLOOD CULT 09-20 Disposition inpatient management as above Surrogate decision maker is the daughter LOOD CULTURE Final GRAM NEGATIVE RODS, IN 2 OF 4 BOTTLES, TWO SETS DRAWN. ONE SET IS POSITIVE. CONSIDER UROLOGY REFERRAL but No hydronephrosis. 09-22 MORE ALERT, SOME EXP WHEEZES to cvc bed later today , cxr glenn 33 minutes of critical care time was spent in reviewing chart, labs, and images. Discussed with RN and SW. History of Present Illness History of Present Illness History of Present Illness: HPI: 85 year old male with past medical history of atrial fibrillation, GERD, dyslipidemia, hypertension who arrives via EMS with a chief complaint of abdominal pain and back pain. Pain began about 4 PM DAY OF ADMIT . Patient describes 10 out of 10 abdominal pain worse on the left side as well as lumbar back pain that is not as severe. Patient is extremely hard of hearing therefore history, physical review of systems are extremely difficult to obtain due to his inability to hear and answer questions. Patient daughter states that patient does have a Hanna that is indwelling and she is unsure when it was exchanged or flushed. 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 HEENT: Normocephalic, atraumatic, anicteric. Oral mucosa moist. NECK: Supple, no JVD. LUNGS: Clear bilaterally. No wheezing. HEART: S1, S2, ABDOMEN: Soft, nondistended, nontender. Bowel sounds present. EXTREMITIES: No edema, no cyanosis. DERMATOLOGIC: Warm, dry. No generalized rash. NEUROLOGIC: Alert, awake, hard of hearing. Moves all four extremities, though weak. PSYCHIATRIC: Cooperative, calm. General: Alert, Oriented X3, Cooperative, No acute distress Heart: Regular rate, Other (distant heart tones ) Lungs: Wheezing Abdomen: Normal bowel sounds, Soft Extremities: No edema Skin: No significant lesion Labs LABS XR CHEST 1V INDICATION: Reason: SEPSIS / Spl. Instructions: / History: . COMPARISON STUDY: 11/11/2015. FINDINGS: Lungs: Normal lung volume. Bilateral perihilar opacities. Indistinct pulmonary vasculature. Pleura: Small left pleural effusion. Heart and Mediastinum: Cardiomegaly. Tortuosity of the thoracic aorta. IMPRESSION: 1. Bilateral perihilar opacities, likely edema or multifocal infection. 2. Small left pleural effusion. Electronically signed by: Yeny Arroyo MD (09/21/2020 5:09 PM) [id number] DICTATED and SIGNED BY: YENY ARROYO MD DATE: 09/21/20 [id number] Laboratory Tests Test 09/22/20 06:51 White Blood Count 13.3 x10^3/uL (4.0-11.0) Red Blood Count 3.33 x10^6/uL (4.30-5.70) Hemoglobin 9.6 g/dL (13.0-17.5) Hematocrit 29.8 % (39.0-53.0) Mean Corpuscular Volume 89 fL (79-100) Mean Corpuscular Hemoglobin 29 pg (25-35) Mean Corpuscular Hemoglobin Concent 32 g/dL (31-37) Red Cell Distribution Width 16.4 % (11.5-14.5) Platelet Count 152 x10^3/uL (140-400) Neutrophils (%) (Auto) 84 % (31-73) Lymphocytes (%) (Auto) 8 % (24-48) Monocytes (%) (Auto) 4 % (0-9) Eosinophils (%) (Auto) 4 % (0-3) Basophils (%) (Auto) 0 % (0-3) Neutrophils # (Auto) 11.2 x10^3/uL (1.8-7.7) Lymphocytes # (Auto) 1.1 x10^3/uL (1.0-4.8) Monocytes # (Auto) 0.5 x10^3/uL (0.0-1.1) Eosinophils # (Auto) 0.5 x10^3/uL (0.0-0.7) Basophils # (Auto) 0.0 x10^3/uL (0.0-0.2) Sodium Level 147 mmol/L (136-145) Potassium Level 3.5 mmol/L (3.5-5.1) Chloride Level 115 mmol/L (98-107) Carbon Dioxide Level 22 mmol/L (21-32) Anion Gap 10 (6-14) Blood Urea Nitrogen 38 mg/dL (8-26) Creatinine 1.0 mg/dL (0.7-1.3) Estimated GFR (Cockcroft-Gault) 70.7 BUN/Creatinine Ratio 38 (6-20) Glucose Level 97 mg/dL (70-99) Calcium Level 8.0 mg/dL (8.5-10.1) Total Bilirubin 0.4 mg/dL (0.2-1.0) Aspartate Amino Transf (AST/SGOT) 25 U/L (15-37) Alanine Aminotransferase (ALT/SGPT) 39 U/L (16-63) Alkaline Phosphatase 112 U/L (46-116) Total Protein 5.1 g/dL (6.4-8.2) Albumin 1.8 g/dL (3.4-5.0) Albumin/Globulin Ratio 0.5 (1.0-1.7) Assessment and Plan Assessmemt and Plan Problems Medical Problems: (1) Abdominal pain Status: Acute (2) Azotemia Status: Acute (3) Back pain Status: Acute (4) Bladder outlet obstruction Status: Acute (5) Pyelonephritis Status: Acute Comment Review of Relevant I have reviewed the following items gustavo (where applicable) has been applied. Labs Laboratory Tests Test 09/20/20 10:10 09/21/20 08:35 09/22/20 06:51 White Blood Count 29.6 x10^3/uL (4.0-11.0) 21.2 x10^3/uL (4.0-11.0) 13.3 x10^3/uL (4.0-11.0) Red Blood Count 3.28 x10^6/uL (4.30-5.70) 3.38 x10^6/uL (4.30-5.70) 3.33 x10^6/uL (4.30-5.70) Hemoglobin 9.5 g/dL (13.0-17.5) 9.6 g/dL (13.0-17.5) 9.6 g/dL (13.0-17.5) Hematocrit 29.3 % (39.0-53.0) 30.4 % (39.0-53.0) 29.8 % (39.0-53.0) Mean Corpuscular Volume 89 fL (79-100) 90 fL (79-100) 89 fL (79-100) Mean Corpuscular Hemoglobin 29 pg (25-35) 29 pg (25-35) 29 pg (25-35) Mean Corpuscular Hemoglobin Concent 33 g/dL (31-37) 32 g/dL (31-37) 32 g/dL (31-37) Red Cell Distribution Width 16.2 % (11.5-14.5) 15.7 % (11.5-14.5) 16.4 % (11.5-14.5) Platelet Count 193 x10^3/uL (140-400) 162 x10^3/uL (140-400) 152 x10^3/uL (140-400) Neutrophils (%) (Auto) 93 % (31-73) 90 % (31-73) 84 % (31-73) Lymphocytes (%) (Auto) 3 % (24-48) 5 % (24-48) 8 % (24-48) Monocytes (%) (Auto) 4 % (0-9) 4 % (0-9) 4 % (0-9) Eosinophils (%) (Auto) 0 % (0-3) 2 % (0-3) 4 % (0-3) Basophils (%) (Auto) 0 % (0-3) 0 % (0-3) 0 % (0-3) Neutrophils # (Auto) 27.5 x10^3/uL (1.8-7.7) 19.0 x10^3/uL (1.8-7.7) 11.2 x10^3/uL (1.8-7.7) Lymphocytes # (Auto) 0.9 x10^3/uL (1.0-4.8) 1.0 x10^3/uL (1.0-4.8) 1.1 x10^3/uL (1.0-4.8) Monocytes # (Auto) 1.1 x10^3/uL (0.0-1.1) 0.8 x10^3/uL (0.0-1.1) 0.5 x10^3/uL (0.0-1.1) Eosinophils # (Auto) 0.0 x10^3/uL (0.0-0.7) 0.3 x10^3/uL (0.0-0.7) 0.5 x10^3/uL (0.0-0.7) Basophils # (Auto) 0.1 x10^3/uL (0.0-0.2) 0.1 x10^3/uL (0.0-0.2) 0.0 x10^3/uL (0.0-0.2) Sodium Level 144 mmol/L (136-145) 147 mmol/L (136-145) 147 mmol/L (136-145) Potassium Level 3.2 mmol/L (3.5-5.1) 3.5 mmol/L (3.5-5.1) 3.5 mmol/L (3.5-5.1) Chloride Level 110 mmol/L (98-107) 114 mmol/L (98-107) 115 mmol/L (98-107) Carbon Dioxide Level 21 mmol/L (21-32) 22 mmol/L (21-32) 22 mmol/L (21-32) Anion Gap 13 (6-14) 11 (6-14) 10 (6-14) Blood Urea Nitrogen 45 mg/dL (8-26) 44 mg/dL (8-26) 38 mg/dL (8-26) Creatinine 1.4 mg/dL (0.7-1.3) 1.1 mg/dL (0.7-1.3) 1.0 mg/dL (0.7-1.3) Estimated GFR (Cockcroft-Gault) 47.9 63.3 70.7 Glucose Level 124 mg/dL (70-99) 96 mg/dL (70-99) 97 mg/dL (70-99) Lactic Acid Level 1.8 mmol/L (0.4-2.0) Calcium Level 7.8 mg/dL (8.5-10.1) 7.9 mg/dL (8.5-10.1) 8.0 mg/dL (8.5-10.1) Phosphorus Level 2.8 mg/dL (2.6-4.7) Magnesium Level 2.0 mg/dL (1.8-2.4) Cortisol AM Sample 27.7 ug/dL (4.3-22.4) BUN/Creatinine Ratio 40 (6-20) 38 (6-20) Total Bilirubin 0.6 mg/dL (0.2-1.0) 0.4 mg/dL (0.2-1.0) Aspartate Amino Transf (AST/SGOT) 40 U/L (15-37) 25 U/L (15-37) Alanine Aminotransferase (ALT/SGPT) 43 U/L (16-63) 39 U/L (16-63) Alkaline Phosphatase 119 U/L (46-116) 112 U/L (46-116) Troponin I Quantitative 0.019 ng/mL (0.000-0.055) Total Protein 5.4 g/dL (6.4-8.2) 5.1 g/dL (6.4-8.2) Albumin 1.8 g/dL (3.4-5.0) 1.8 g/dL (3.4-5.0) Albumin/Globulin Ratio 0.5 (1.0-1.7) 0.5 (1.0-1.7) Laboratory Tests Test 09/22/20 06:51 White Blood Count 13.3 x10^3/uL (4.0-11.0) Red Blood Count 3.33 x10^6/uL (4.30-5.70) Hemoglobin 9.6 g/dL (13.0-17.5) Hematocrit 29.8 % (39.0-53.0) Mean Corpuscular Volume 89 fL (79-100) Mean Corpuscular Hemoglobin 29 pg (25-35) Mean Corpuscular Hemoglobin Concent 32 g/dL (31-37) Red Cell Distribution Width 16.4 % (11.5-14.5) Platelet Count 152 x10^3/uL (140-400) Neutrophils (%) (Auto) 84 % (31-73) Lymphocytes (%) (Auto) 8 % (24-48) Monocytes (%) (Auto) 4 % (0-9) Eosinophils (%) (Auto) 4 % (0-3) Basophils (%) (Auto) 0 % (0-3) Neutrophils # (Auto) 11.2 x10^3/uL (1.8-7.7) Lymphocytes # (Auto) 1.1 x10^3/uL (1.0-4.8) Monocytes # (Auto) 0.5 x10^3/uL (0.0-1.1) Eosinophils # (Auto) 0.5 x10^3/uL (0.0-0.7) Basophils # (Auto) 0.0 x10^3/uL (0.0-0.2) Sodium Level 147 mmol/L (136-145) Potassium Level 3.5 mmol/L (3.5-5.1) Chloride Level 115 mmol/L (98-107) Carbon Dioxide Level 22 mmol/L (21-32) Anion Gap 10 (6-14) Blood Urea Nitrogen 38 mg/dL (8-26) Creatinine 1.0 mg/dL (0.7-1.3) Estimated GFR (Cockcroft-Gault) 70.7 BUN/Creatinine Ratio 38 (6-20) Glucose Level 97 mg/dL (70-99) Calcium Level 8.0 mg/dL (8.5-10.1) Total Bilirubin 0.4 mg/dL (0.2-1.0) Aspartate Amino Transf (AST/SGOT) 25 U/L (15-37) Alanine Aminotransferase (ALT/SGPT) 39 U/L (16-63) Alkaline Phosphatase 112 U/L (46-116) Total Protein 5.1 g/dL (6.4-8.2) Albumin 1.8 g/dL (3.4-5.0) Albumin/Globulin Ratio 0.5 (1.0-1.7) Microbiology 09/20/20 Blood Culture - Preliminary, Resulted NO GROWTH AFTER 1 DAY 09/19/20 Urine Culture - Final, Complete Medications Current Medications Morphine Sulfate (Morphine Sulfate) 4 mg 1X ONCE IV Last administered on 09/18/20at 22:10; Start 09/18/20 at 22:00; Stop 09/18/20 at 22:01; Status DC Ondansetron HCl (Zofran) 4 mg 1X ONCE IVP Last administered on 09/18/20at 22:10; Start 09/18/20 at 22:00; Stop 09/18/20 at 22:01; Status DC Lorazepam (Ativan Inj) 1 mg 1X ONCE IVP Last administered on 09/18/20at 22:29; Start 09/18/20 at 22:30; Stop 09/18/20 at 22:35; Status DC Iohexol (Omnipaque 300 Mg/ml) 60 ml 1X ONCE IV Last administered on 09/18/20at 23:15; Start 09/18/20 at 22:45; Stop 09/18/20 at 22:46; Status DC Info (CONTRAST GIVEN -- Rx MONITORING) 1 each PRN DAILY PRN MC SEE COMMENTS; Start 09/18/20 at 22:45; Stop 09/20/20 at 22:44; Status DC Piperacillin Sod/ Tazobactam Sod 3.375 gm/Sodium Chloride 50 ml @ 100 mls/hr 1X ONCE IV Last administered on 09/19/20at 00:32; Start 09/18/20 at 23:30; Stop 09/18/20 at 23:59; Status DC Sodium Chloride 1,000 ml @ 1,000 mls/hr 1X ONCE IV Last administered on 09/19/20at 00:32; Start 09/19/20 at 00:15; Stop 09/19/20 at 01:14; Status DC Ondansetron HCl (Zofran) 4 mg PRN Q8HRS PRN IV NAUSEA/VOMITING; Start 09/19/20 at 00:30; Stop 09/20/20 at 00:29; Status DC Sodium Chloride 1,000 ml @ 125 mls/hr 1X ONCE IV Last administered on 09/19/20at 01:37; Start 09/19/20 at 00:30; Stop 09/19/20 at 08:29; Status DC Olanzapine (ZyPREXA ZYDIS) 5 mg PRN BID PRN PO ANXIETY / AGITATION Last administered on 09/19/20at 15:15; Start 09/19/20 at 06:15 Psyllium Hydrophilic Mucilloid (Metamucil Fiber Packet) 1 pkt QHS PO Last administered on 09/19/20at 22:00; Start 09/19/20 at 21:00 Piperacillin Sod/ Tazobactam Sod 3.375 gm/Sodium Chloride 50 ml @ 100 mls/hr Q6HRS IV Last administered on 09/22/20at 05:32; Start 09/19/20 at 12:00 Piperacillin Sod/ Tazobactam Sod (Zosyn Per Pharmacy) 1 each PRN DAILY PRN MC SEE COMMENTS; Start 09/19/20 at 06:15 Sodium Chloride 1,000 ml @ 100 mls/hr Q10H IV Last administered on 09/19/20at 17:07; Start 09/19/20 at 06:15; Stop 09/20/20 at 12:58; Status DC Ondansetron HCl (Zofran) 4 mg PRN Q4HRS PRN IV NAUSEA/VOMITING; Start 09/19/20 at 06:15; Stop 09/21/20 at 15:11; Status DC Acetaminophen (Tylenol) 650 mg PRN Q4HRS PRN PO TEMP OVER 100.4F OR MILD PAIN Last administered on 09/21/20at 14:56; Start 09/19/20 at 06:15 Docusate Sodium (Colace) 100 mg PRN BID PRN PO HARD STOOLS Last administered on 09/21/20at 09:13; Start 09/19/20 at 06:15; Stop 09/21/20 at 15:12; Status DC Guaifenesin (Robitussin) 200 mg PRN Q4HRS PRN PO COUGH; Start 09/19/20 at 06:15 Piperacillin Sod/ Tazobactam Sod 3.375 gm/Sodium Chloride 50 ml @ 100 mls/hr ONCE ONCE IV Last administered on 09/19/20at 07:45; Start 09/19/20 at 07:30; Stop 09/19/20 at 07:59; Status DC Norepinephrine Bitartrate 8 mg/ Dextrose 258 ml @ 17.589 mls/ hr ONCE ONCE IV Last administered on 09/19/20at 08:27; Start 09/19/20 at 08:30; Stop 09/19/20 at 19:46; Status DC Norepinephrine Bitartrate 8 mg/ Dextrose 258 ml @ 17.589 mls/ hr CONT PRN IV PER PROTOCOL; Start 09/19/20 at 10:00; Stop 09/19/20 at 19:46; Status DC Sennosides (Senna) 17.2 mg PRN BID PRN PO CONSTIPATION; Start 09/19/20 at 12:00 Docusate Sodium (Colace) 100 mg PRN DAILY PRN PO HARD STOOLS; Start 09/19/20 at 12:00 Ondansetron HCl (Zofran) 4 mg PRN Q6HRS PRN IVP NAUSEA/VOMITING; Start 09/19/20 at 12:00 Dextrose (Dextrose 50%-Water Syringe) 12.5 gm PRN Q15MIN PRN IV SEE COMMENTS; Start 09/19/20 at 12:00 Sodium Chloride 1,000 ml @ 50 mls/hr Q20H IV Last administered on 09/22/20at 04:28; Start 09/19/20 at 12:00 Enoxaparin Sodium (Lovenox 30mg Syringe) 30 mg Q24H SQ Last administered on 09/19/20at 12:33; Start 09/19/20 at 12:30; Stop 09/20/20 at 07:55; Status DC Pantoprazole Sodium (PROTONIX VIAL for IV PUSH) 40 mg DAILYAC IVP Last administered on 09/22/20at 08:44; Start 09/19/20 at 12:00 Norepinephrine Bitartrate 8 mg/ Dextrose 258 ml @ 15.674 mls/ hr CONT PRN IV PER PROTOCOL Last administered on 09/19/20at 23:40; Start 09/19/20 at 19:45 Enoxaparin Sodium (Lovenox 40mg Syringe) 40 mg Q24H SQ Last administered on 09/21/20at 12:00; Start 09/20/20 at 12:00 Potassium Chloride (Klor-Con) 40 meq 1X ONCE PO Last administered on 09/20/20at 12:53; Start 09/20/20 at 12:30; Stop 09/20/20 at 12:45; Status DC Potassium Chloride (Klor-Con) 40 meq Q2H PO ; Start 09/20/20 at 12:30; Stop 09/20/20 at 14:31; Status UNV Potassium Chloride (Klor-Con) 40 meq Q2H PO ; Start 09/20/20 at 12:30; Stop 09/20/20 at 16:31; Status UNV Potassium Chloride/Water 100 ml @ 100 mls/hr Q1HR IV ; Start 09/20/20 at 13:00; Stop 09/20/20 at 18:59; Status UNV Magnesium Sulfate 100 ml @ 50 mls/hr DAILY IV ; Start 09/21/20 at 09:00; Stop 09/24/20 at 08:59; Status UNV Potassium Phos/ Sodium Phos (Phos-Nak) 1 pkt BID PO ; Start 09/20/20 at 21:00; Stop 09/21/20 at 09:01; Status UNV Sodium Phosphate 20 mmol/Sodium Chloride 256.6667 ml @ 62.5 mls/hr 1X ONCE IV ; Start 09/20/20 at 12:30; Stop 09/20/20 at 16:36; Status UNV Info (Icu Electrolyte Protocol) 1 ea CONT PRN PRN MC SEE COMMENTS; Start 09/20/20 at 12:45 Lactobacillus Rhamnosus (Culturelle) 1 cap BID PO Last administered on 09/22/20at 08:45; Start 09/20/20 at 21:00 Albuterol/ Ipratropium (Duoneb) 3 ml RTQID NEB Last administered on 09/22/20at 08:17; Start 09/21/20 at 12:00 Vitamin A/Vitamin D (Vitamin A & D Ointment) 1 kortney PRN Q1HR PRN TP SKIN PROTECTION Last administered on 09/21/20at 16:58; Start 09/21/20 at 11:15 Amiodarone HCl (Cordarone) 200 mg DAILY PO Last administered on 09/22/20at 08:45; Start 09/21/20 at 16:00 Aspirin (Rhianna Aspirin) 325 mg DAILY PO Last administered on 09/22/20at 08:45; Start 09/21/20 at 16:00 Simvastatin (Zocor) 20 mg QHS PO Last administered on 09/21/20at 20:45; Start 09/21/20 at 21:00 Vancomycin HCl (Vancomycin Oral Solution) 125 mg BID PO ; Start 09/22/20 at 09:00; Status UNV Active Scripts Active Reported Klor-Con M20 (Potassium Chloride) 20 Meq Tab.er.prt 20 Meq PO DAILY Ondansetron Hcl 4 Mg Tablet 8 Mg PO PRN Q8HRS PRN Milk Of Magnesia (Magnesium Hydroxide) 400 Mg/5 Ml Oral.susp 400 Mg PO PRN DAILY PRN Bisacodyl 10 Mg Supp.rect 10 Mg RC PRN DAILY PRN Artificial Tears Eye Drops (Dextran 70/Hypromellose) 15 Ml Drops 1 Drop EACHEYE PRN QID PRN A and D Ointment (Vits A and D/White Pet/Lanolin) 42.5 Gm Oint...g. 42.5 Gm TP BID Flomax (Tamsulosin Hcl) 0.4 Mg Cap.er.24h 1 Cap PO DAILY Famotidine 20 Mg Tablet 20 Mg PO BID Miralax (Polyethylene Glycol 3350) 17 Gm Powd.pack 1 Packet PO DAILY PRN 2 Days dissolve in water Lisinopril 40 Mg Tablet 1 Tab PO DAILY Flonase Allergy Relief (Fluticasone Propionate) 9.9 Ml Cambria.susp 1 Sprays NS DAILY PRN Finasteride 5 Mg Tablet 1 Tab PO DAILY Ferrous Sulfate 325 Mg Tablet 1 Tab PO DAILY Tylenol (Acetaminophen) 325 Mg Tablet 500 Mg PO PRN Q6HRS PRN Centrum Complete Multivit Tab (Multivitamin/Iron/Folic Acid) 1 Each Tablet 1 Each PO DAILY Aspirin 325 Mg Tablet 1 Tab PO DAILY Docusate Sodium 100 Mg Capsule 100 Mg PO TID Hydrochlorothiazide Tablet (Hydrochlorothiazide) 25 Mg Tablet 1 Tab PO DAILY Amiodarone Hcl 200 Mg Tablet 1 Tab PO DAILY Simvastatin 20 Mg Tablet 1 Tab PO QHS Vitals/I & O Vital Sign - Last 24 Hours 09/21/20 09/21/20 09/21/20 09/21/20 09:00 10:00 11:00 11:29 Pulse 70 68 68 Resp 22 22 22 B/P (MAP) 154/85 (108) Pulse Ox 100 98 100 97 O2 Delivery Room Air Room Air Room Air Room Air 09/21/20 09/21/20 09/21/20 09/21/20 12:00 15:33 15:47 16:00 Temp 98.1 98.1 Pulse 72 64 114 Resp 22 22 B/P (MAP) 144/57 126/61 (82) Pulse Ox 99 98 99 O2 Delivery Room Air Room Air Room Air 09/21/20 09/21/20 09/21/20 09/22/20 20:00 20:00 20:17 00:01 Temp 97.5 97.7 97.5 97.7 Pulse 66 59 Resp 24 26 B/P (MAP) 140/67 (91) 120/54 (76) Pulse Ox 98 98 100 O2 Delivery Room Air Room Air Room Air Room Air 09/22/20 09/22/20 09/22/20 04:00 08:17 08:45 Temp 97.5 97.5 Pulse 55 73 Resp 20 B/P (MAP) 148/66 (93) 169/76 Pulse Ox 98 94 O2 Delivery Room Air Room Air Intake and Output 09/21/20 09/21/20 09/22/20 15:00 23:00 07:00 Intake Total 400 ml 594 ml Output Total 775 ml 385 ml Balance 400 ml -775 ml 209 ml Justicifation of Admission Dx: Justifications for Admission: Justification of Admission Dx: Yes JUSTINO CAMPOS MD Sep 22, 2020 08:57
[2020-09-22] MEDS ORDERED: VANCOMYCIN 125 MG/2.5 ML ORAL SOLUTION. PO SCH (09:00)
--- NOTE | 2020-09-22 09:25 | PDOC ---
SHERITA HAMILTON MICHAEL 09/22/20 0925: CARDIO Progress Notes Date and Time Date of Service 09/22/20 Time of Evaluation 0920 Subjective Subjective: No Chest Pain, No shortness of breath, Other (feeling better today ) Vitals Vitals Vital Signs Date Time Temp Pulse Resp B/P (MAP) Pulse Ox O2 Delivery O2 Flow Rate FiO2 09/22/20 08:45 73 169/76 09/22/20 08:17 94 Room Air 09/22/20 04:00 97.5 20 97.5 Weight Weight [ ] Input and Output Intake and Output Intake and Output 09/22/20 07:00 Intake Total 994 ml Output Total 1160 ml Balance -166 ml Intake Oral 400 ml IV Total 594 ml Output Urine Total 1160 ml Laboratory Labs Laboratory Tests Test 09/22/20 06:51 White Blood Count 13.3 x10^3/uL (4.0-11.0) Red Blood Count 3.33 x10^6/uL (4.30-5.70) Hemoglobin 9.6 g/dL (13.0-17.5) Hematocrit 29.8 % (39.0-53.0) Mean Corpuscular Volume 89 fL (79-100) Mean Corpuscular Hemoglobin 29 pg (25-35) Mean Corpuscular Hemoglobin Concent 32 g/dL (31-37) Red Cell Distribution Width 16.4 % (11.5-14.5) Platelet Count 152 x10^3/uL (140-400) Neutrophils (%) (Auto) 84 % (31-73) Lymphocytes (%) (Auto) 8 % (24-48) Monocytes (%) (Auto) 4 % (0-9) Eosinophils (%) (Auto) 4 % (0-3) Basophils (%) (Auto) 0 % (0-3) Neutrophils # (Auto) 11.2 x10^3/uL (1.8-7.7) Lymphocytes # (Auto) 1.1 x10^3/uL (1.0-4.8) Monocytes # (Auto) 0.5 x10^3/uL (0.0-1.1) Eosinophils # (Auto) 0.5 x10^3/uL (0.0-0.7) Basophils # (Auto) 0.0 x10^3/uL (0.0-0.2) Sodium Level 147 mmol/L (136-145) Potassium Level 3.5 mmol/L (3.5-5.1) Chloride Level 115 mmol/L (98-107) Carbon Dioxide Level 22 mmol/L (21-32) Anion Gap 10 (6-14) Blood Urea Nitrogen 38 mg/dL (8-26) Creatinine 1.0 mg/dL (0.7-1.3) Estimated GFR (Cockcroft-Gault) 70.7 BUN/Creatinine Ratio 38 (6-20) Glucose Level 97 mg/dL (70-99) Calcium Level 8.0 mg/dL (8.5-10.1) Total Bilirubin 0.4 mg/dL (0.2-1.0) Aspartate Amino Transf (AST/SGOT) 25 U/L (15-37) Alanine Aminotransferase (ALT/SGPT) 39 U/L (16-63) Alkaline Phosphatase 112 U/L (46-116) Total Protein 5.1 g/dL (6.4-8.2) Albumin 1.8 g/dL (3.4-5.0) Albumin/Globulin Ratio 0.5 (1.0-1.7) Microbiology Micro Microbiology 09/20/20 Blood Culture - Preliminary, Resulted NO GROWTH AFTER 1 DAY 09/19/20 Urine Culture - Final, Complete Physical Exam HEENT: Neck Supple W Full Motion Assessment Assessment 1. Abdominal pain; CT abd/pelvis with cholelithiasis and possible bladder outlet obstruction. US negative for hydronephrosis. 2. UTI with history of urinary retention and chronic [place]. 3. Leukocytosis, fever, sepsis 4. Bacteremia; BC with GNR 2/. 5. Mild troponin elevation; peak 0.09. Most probably type II, demand ischemia secondary to above. CP free. EKG without significant changes as compared to study 06/09/20. Echo with preserved LV systolic function, no WMA. 6. PAFIB; presently SR 7. Hypertension; mildly elevated 8. Hyperlipidemia 9. Anemia Recommendations ASA, statin Amiodarone for rhythm maintenance Rate controlled without BB OAC has been discussed in the past and patient has declined. ASA for stroke prophylaxis Resume lisinopril for BP control Antibiotics therapy as per ID team Could consider outpatient ischemic evaluation Supportive care Follow up in our office with Dr. Alonzo as scheduled. Justicifation of Admission Dx: Justifications for Admission: Justification of Admission Dx: Yes BAMBI ALONZO MD 09/22/20 1623: CARDIO Progress Notes Assessment Assessment Patient seen and examined. Agree with STRUCTURAL WELDER's assessment and plan. Slight troponin elevation probably demand ischemia. 2D echo showed normal LV systolic function without any wall motion abnormalities. Ischemic work-up could be considered as an outpatient. PAF, presently in sinus rhythm. Continue amiodarone for rhythm maintenance. The option of oral anticoagulation for stroke prophylaxis was discussed several times in the past with patient but he declined it. Continue aspirin for stroke prophylaxis. Continue antibiotics for UTI/sepsis/bacteremia per ID team. SHERITA HAMILTON APRN Sep 22, 2020 09:25 BAMBI ALONZO MD Sep 22, 2020 16:23
[2020-09-22] MEDS: ENOXAPARIN 40 MG/0.4 ML SYRINGE. SQ SCH (11:36)
[2020-09-22 12:00] VITALS: BP 136/57
[2020-09-22] MEDS: LISINOPRIL 20 MG TABLET PO SCH (13:27)
--- NOTE | 2020-09-22 13:41 | PDOC ---
PULMONARY PROGRESS NOTES DATE: 09/22/20 TIME: 13:40 Vitals Vital Signs Date Time Temp Pulse Resp B/P (MAP) Pulse Ox O2 Delivery O2 Flow Rate FiO2 09/22/20 12:00 97.4 68 30 136/57 (83) 99 Room Air 97.4 Lungs: Wheezing Labs Laboratory Tests Test 09/21/20 08:35 09/22/20 06:51 White Blood Count 21.2 x10^3/uL (4.0-11.0) 13.3 x10^3/uL (4.0-11.0) Red Blood Count 3.38 x10^6/uL (4.30-5.70) 3.33 x10^6/uL (4.30-5.70) Hemoglobin 9.6 g/dL (13.0-17.5) 9.6 g/dL (13.0-17.5) Hematocrit 30.4 % (39.0-53.0) 29.8 % (39.0-53.0) Mean Corpuscular Volume 90 fL (79-100) 89 fL (79-100) Mean Corpuscular Hemoglobin 29 pg (25-35) 29 pg (25-35) Mean Corpuscular Hemoglobin Concent 32 g/dL (31-37) 32 g/dL (31-37) Red Cell Distribution Width 15.7 % (11.5-14.5) 16.4 % (11.5-14.5) Platelet Count 162 x10^3/uL (140-400) 152 x10^3/uL (140-400) Neutrophils (%) (Auto) 90 % (31-73) 84 % (31-73) Lymphocytes (%) (Auto) 5 % (24-48) 8 % (24-48) Monocytes (%) (Auto) 4 % (0-9) 4 % (0-9) Eosinophils (%) (Auto) 2 % (0-3) 4 % (0-3) Basophils (%) (Auto) 0 % (0-3) 0 % (0-3) Neutrophils # (Auto) 19.0 x10^3/uL (1.8-7.7) 11.2 x10^3/uL (1.8-7.7) Lymphocytes # (Auto) 1.0 x10^3/uL (1.0-4.8) 1.1 x10^3/uL (1.0-4.8) Monocytes # (Auto) 0.8 x10^3/uL (0.0-1.1) 0.5 x10^3/uL (0.0-1.1) Eosinophils # (Auto) 0.3 x10^3/uL (0.0-0.7) 0.5 x10^3/uL (0.0-0.7) Basophils # (Auto) 0.1 x10^3/uL (0.0-0.2) 0.0 x10^3/uL (0.0-0.2) Sodium Level 147 mmol/L (136-145) 147 mmol/L (136-145) Potassium Level 3.5 mmol/L (3.5-5.1) 3.5 mmol/L (3.5-5.1) Chloride Level 114 mmol/L (98-107) 115 mmol/L (98-107) Carbon Dioxide Level 22 mmol/L (21-32) 22 mmol/L (21-32) Anion Gap 11 (6-14) 10 (6-14) Blood Urea Nitrogen 44 mg/dL (8-26) 38 mg/dL (8-26) Creatinine 1.1 mg/dL (0.7-1.3) 1.0 mg/dL (0.7-1.3) Estimated GFR (Cockcroft-Gault) 63.3 70.7 BUN/Creatinine Ratio 40 (6-20) 38 (6-20) Glucose Level 96 mg/dL (70-99) 97 mg/dL (70-99) Calcium Level 7.9 mg/dL (8.5-10.1) 8.0 mg/dL (8.5-10.1) Total Bilirubin 0.6 mg/dL (0.2-1.0) 0.4 mg/dL (0.2-1.0) Aspartate Amino Transf (AST/SGOT) 40 U/L (15-37) 25 U/L (15-37) Alanine Aminotransferase (ALT/SGPT) 43 U/L (16-63) 39 U/L (16-63) Alkaline Phosphatase 119 U/L (46-116) 112 U/L (46-116) Troponin I Quantitative 0.019 ng/mL (0.000-0.055) Total Protein 5.4 g/dL (6.4-8.2) 5.1 g/dL (6.4-8.2) Albumin 1.8 g/dL (3.4-5.0) 1.8 g/dL (3.4-5.0) Albumin/Globulin Ratio 0.5 (1.0-1.7) 0.5 (1.0-1.7) Laboratory Tests Test 09/22/20 06:51 White Blood Count 13.3 x10^3/uL (4.0-11.0) Red Blood Count 3.33 x10^6/uL (4.30-5.70) Hemoglobin 9.6 g/dL (13.0-17.5) Hematocrit 29.8 % (39.0-53.0) Mean Corpuscular Volume 89 fL (79-100) Mean Corpuscular Hemoglobin 29 pg (25-35) Mean Corpuscular Hemoglobin Concent 32 g/dL (31-37) Red Cell Distribution Width 16.4 % (11.5-14.5) Platelet Count 152 x10^3/uL (140-400) Neutrophils (%) (Auto) 84 % (31-73) Lymphocytes (%) (Auto) 8 % (24-48) Monocytes (%) (Auto) 4 % (0-9) Eosinophils (%) (Auto) 4 % (0-3) Basophils (%) (Auto) 0 % (0-3) Neutrophils # (Auto) 11.2 x10^3/uL (1.8-7.7) Lymphocytes # (Auto) 1.1 x10^3/uL (1.0-4.8) Monocytes # (Auto) 0.5 x10^3/uL (0.0-1.1) Eosinophils # (Auto) 0.5 x10^3/uL (0.0-0.7) Basophils # (Auto) 0.0 x10^3/uL (0.0-0.2) Sodium Level 147 mmol/L (136-145) Potassium Level 3.5 mmol/L (3.5-5.1) Chloride Level 115 mmol/L (98-107) Carbon Dioxide Level 22 mmol/L (21-32) Anion Gap 10 (6-14) Blood Urea Nitrogen 38 mg/dL (8-26) Creatinine 1.0 mg/dL (0.7-1.3) Estimated GFR (Cockcroft-Gault) 70.7 BUN/Creatinine Ratio 38 (6-20) Glucose Level 97 mg/dL (70-99) Calcium Level 8.0 mg/dL (8.5-10.1) Total Bilirubin 0.4 mg/dL (0.2-1.0) Aspartate Amino Transf (AST/SGOT) 25 U/L (15-37) Alanine Aminotransferase (ALT/SGPT) 39 U/L (16-63) Alkaline Phosphatase 112 U/L (46-116) Total Protein 5.1 g/dL (6.4-8.2) Albumin 1.8 g/dL (3.4-5.0) Albumin/Globulin Ratio 0.5 (1.0-1.7) Medications Active Scripts Medications Dose Route/Sig Max Daily Dose Days Date Category Dose Instructions Klor-Con M20 (Potassium Chloride) 20 Meq Tab.er.prt 20 Meq PO DAILY 09/19/20 Reported Ondansetron Hcl 4 Mg Tablet 8 Mg PO PRN Q8HRS PRN 09/19/20 Reported Milk Of Magnesia (Magnesium Hydroxide) 400 Mg/5 Ml Oral.susp 400 Mg PO PRN DAILY PRN 09/19/20 Reported Bisacodyl 10 Mg Supp.rect 10 Mg RC PRN DAILY PRN 09/19/20 Reported Artificial Tears Eye Drops (Dextran 70/Hypromellose) 15 Ml Drops 1 Drop EACHEYE PRN QID PRN 09/19/20 Reported A and D Ointment (Vits A and D/White Pet/Lanolin) 42.5 Gm Oint...g. 42.5 Gm TP BID 09/19/20 Reported Flomax (Tamsulosin Hcl) 0.4 Mg Cap.er.24h 1 Cap PO DAILY 06/10/20 Reported Famotidine 20 Mg Tablet 20 Mg PO BID 06/10/20 Reported Miralax (Polyethylene Glycol 3350) 17 Gm Powd.pack 1 Packet PO DAILY PRN 2 06/10/20 Reported dissolve in water Lisinopril 40 Mg Tablet 1 Tab PO DAILY 06/10/20 Reported Flonase Allergy Relief (Fluticasone Propionate) 9.9 Ml [place].susp 1 Sprays NS DAILY PRN 06/10/20 Reported Finasteride 5 Mg Tablet 1 Tab PO DAILY 06/10/20 Reported Ferrous Sulfate 325 Mg Tablet 1 Tab PO DAILY 06/10/20 Reported Tylenol (Acetaminophen) 325 Mg Tablet 500 Mg PO PRN Q6HRS PRN 11/11/15 Reported Centrum Complete Multivit Tab (Multivitamin/Iron/Folic Acid) 1 Each Tablet 1 Each PO DAILY 11/11/15 Reported Aspirin 325 Mg Tablet 1 Tab PO DAILY 11/11/15 Reported Docusate Sodium 100 Mg Capsule 100 Mg PO TID 11/11/15 Reported Hydrochlorothiazide Tablet (Hydrochlorothiazide) 25 Mg Tablet 1 Tab PO DAILY 11/11/15 Reported Amiodarone Hcl 200 Mg Tablet 1 Tab PO DAILY 11/11/15 Reported Simvastatin 20 Mg Tablet 1 Tab PO QHS 11/11/15 Reported Impression . Full note dictated Abnormal x-ray compatible with poor inspiratory effort, pulmonary edema, possible pneumonia Doubt COVID-19. I would not retest the patient, if he comes back positive this is a residual viral particle from his previous COVID-19. YAMIL LUCIANO MD Sep 22, 2020 13:41
[2020-09-22 13:43] LABS: CHOLESTEROL/HDL RATIO 5.3
--- NOTE | 2020-09-22 13:53 | CONS ---
DATE OF CONSULTATION: 09/22/2020 ATTENDING PHYSICIAN: Dr. Reed. REASON FOR CONSULTATION: The patient is seen in pulmonary consultation at the request of Dr. Guillen for abnormal chest x-ray. I personally reviewed the x-ray revealing evidence of bilateral perihilar infiltrates, small left-sided effusion. HISTORY OF PRESENT ILLNESS: The patient is an 85-year-old male that presented on the with complaints of abdominal pain. The patient also had a low-grade fever. CT abdomen and pelvis revealed distended bladder, moderate bilateral hydronephrosis, concerning for bladder outlet obstruction. The patient had a blood culture, which was positive 2/4 for gram-negative rods. He was seen by the Infectious Disease Service, started on Zosyn. This morning, the patient was followed up with Infectious Disease Service. He has been treated for sepsis with gram-negative bacteremia and Proteus mirabilis bacteremia in the genitourinary tract. He has a chronic indwelling Hanna catheter. His fever has resolved. A chest x-ray was obtained, which revealed some perihilar infiltrates. I was asked to see him in consultation. His labs were reviewed. White count was elevated. Hemoglobin and hematocrit were noted. A SARS-CoV-2 testing is currently pending. The patient was in the intensive care unit. Intensive Care Unit, awake, alert, following commands. He is slightly more short of air. PAST MEDICAL HISTORY: Otherwise remarkable for AFib, gastroesophageal reflux, hyperlipidemia, hypertension, SVT, previous back surgery, carpal tunnel release, benign prostatic hypertrophy, chronic indwelling Hanna catheter. ALLERGIES: No known drug allergies. FAMILY HISTORY: Noncontributory in this age group. SOCIAL HISTORY: Never smoked, he resides at residential. He has been there for 4 years. MEDICATIONS: List was reviewed. REVIEW OF SYSTEMS: As indicated above, otherwise, a 10-point system was reviewed and negative. MEDICATIONS: List was reviewed. He is currently on antibiotics per ID, DVT prophylaxis and other home medications. PHYSICAL EXAMINATION: VITAL SIGNS: On examination, the patient was on room air oxygen saturation of 94%. He was in no significant respiratory distress. HEENT: Eyes, the sclerae were nonicteric. NECK: Jugular venous distention was not elevated. No lymphadenopathy. CHEST: Full expansion. LUNGS: Crackles throughout both lung ramires. CARDIOVASCULAR: Regular rate and rhythm with S1, S2, no S3. ABDOMEN: Soft, nontender, nondistended. EXTREMITIES: No clubbing, cyanosis; some edema. NEUROLOGICAL: The patient has been wheelchair bound for quite some time. He does not walk. Labs and chest x-ray as indicated above. IMPRESSION: 1. Abnormal chest x-ray compatible with possible pulmonary edema or pneumonia, doubt COVID-19. 2. Gram-negative bacteremia. 3. Proteus mirabilis bacteremia, source appears to be genitourinary tract. 4. Chronic indwelling Hanna catheter. 5. Leukocytosis. 6. Fever, resolved. 7. Bilateral hydronephrosis with distended bladder seen on ultrasound. 8. Chronic renal insufficiency. 9. History of COVID-19 two weeks ago. PLAN: 1. Doubt the patient has recurrent COVID. If his PCR is positive. I do not think that this is a new infection. 2. Continue antibiotics per Infectious Disease. 3. Gentle diuresis. I do appreciate the privilege in sharing in the patient's care. YAMIL LUCIANO MD DR: TERESA/deanna JOB#: [id number] / [id number]
[2020-09-22 19:27] VITALS: BP 188/77
[2020-09-22] MEDS: PSYLLIUM HUSK (SUGAR FREE) 1 PKT PACKET PO SCH (19:54)
[2020-09-22] MEDS: SIMVASTATIN 20 MG TABLET PO SCH (19:54)
[2020-09-22 23:42] VITALS: BP 164/66
[2020-09-23] VITALS (7 sets, daily range): BP systolic 169–191; BP diastolic 72–101
[2020-09-23] MEDS: IV NORMAL SALINE 1000ML BAG 1,000 ML IV SCH (01:32)
[2020-09-23] MEDS: PIPERACILLIN/TAZOBACTAM 3.375 GM in IV NORMAL SALINE 50ML 50 ML IV SCH (05:46)
[2020-09-23] MEDS: IPRATRPIUM/ALBUTEROL 0.5/2.5MG 3 ML NEBU. NEB SCH ×4 (08:00→20:00)
--- NOTE | 2020-09-23 08:02 | PDOC ---
PROGRESS NOTES Date of Service: DATE: 09/23/20 TIME: 08:[address] ABD/PELVIS IMPRESSION: 1. Distended bladder with moderate bilateral hydronephrosis. Findings are concerning for bladder outlet obstruction. Hanna is noted within the bladder. Correlate for Hanna dysfunction. 2. Cholelithiasis. 3. A 1.8 cm nodule in the right adrenal gland, incompletely characterized on this exam. This can be better evaluated with nonemergent adrenal protocol CT or MRI. 4. Sclerotic lesion at the right pubic symphysis. Correlate with malignancy history. impression Assessment/Plan Sepsis due to UTI gram neg bacteremia Hemodynamic instability Acute UTI secondary to bladder outlet obstruction No hydronephrosis. 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 cxr 09-21 plan Admit to ICU Exchange Hanna catheter and flushed appropriately empiric IV antibiotics blood and urine cultures Judicious IV fluids Continue Levophed for vasopressor support map goal of 65 Strict I's and O's A.m. cortisol level and TSH Repeat troponin Heparin for DVT prophylaxis Protonix GI prophylaxis ADA diet Full code Discussed with RN and MILAD elizabeth qid cardiology consult covid pcr Await Covid -19 test, if pcr positive unlikely new infection BLADDER SCAN PROTOCOL BY US No hydronephrosis. ID CONSULT, REPEAT BLOOD CULT 09-20 Disposition inpatient management as above Surrogate decision maker is the daughter LOOD CULTURE Final GRAM NEGATIVE RODS, IN 2 OF 4 BOTTLES, TWO SETS DRAWN. ONE SET IS POSITIVE. CONSIDER UROLOGY REFERRAL but No hydronephrosis. 09-23 MORE ALERT, SOME EXP WHEEZES to cvc bed later today , cxr glenn PT/OT DVT/GI PPX D/W RN Pt. is a DNR 34 minutes of critical care time was spent in reviewing chart, labs, and images. Discussed with RN and SW. History of Present Illness History of Present Illness History of Present Illness: HPI: 85 year old male with past medical history of atrial fibrillation, GERD, dyslipidemia, hypertension who arrives via EMS with a chief complaint of abdominal pain and back pain. Pain began about 4 PM DAY OF ADMIT . Patient describes 10 out of 10 abdominal pain worse on the left side as well as lumbar back pain that is not as severe. Patient is extremely hard of hearing therefore history, physical review of systems are extremely difficult to obtain due to his inability to hear and answer questions. Patient daughter states that patient does have a Hanna that is indwelling and she is unsure when it was exchanged or flushed. 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 HEENT: Normocephalic, atraumatic, anicteric. Oral mucosa moist. NECK: Supple, no JVD. LUNGS: Clear bilaterally. No wheezing. HEART: S1, S2, ABDOMEN: Soft, nondistended, nontender. Bowel sounds present. EXTREMITIES: No edema, no cyanosis. DERMATOLOGIC: Warm, dry. No generalized rash. NEUROLOGIC: Alert, awake, hard of hearing. Moves all four extremities, though weak. PSYCHIATRIC: Cooperative, calm. General: Alert, Oriented X3, Cooperative, No acute distress Heart: Regular rate, Other (distant heart tones ) Lungs: Wheezing Abdomen: Normal bowel sounds, Soft Extremities: No edema Skin: No significant lesion Labs LABS SPEC #: [id number] ADAN: 09/19/20 STATUS: COMP REQ #: [id number] RECD: 09/19/[address]: VINCENT CHAPA MD SOURCE: BLOOD ENTR: 09/20/[address] [facility] [address]: DILEEP SORIA MD [facility]: ORDERED: BLD CULT - LC Procedure Result --------- --- BLOOD CULTURE LC Final Final GROWTH OF GRAM NEGATIVE RODS FINAL ID= [PROTEUS MIRABILIS] PROTEUS MIRABILIS ANTIMICROBIAL SUSCEPTIBILITY Final Comment NEG YANIV 56 PROTEUS MIRABILIS ANTIBIOTIC RESULT INTERPRETATION AMPICILLIN/SULBACTAM <=4/2 S AMIKACIN <=16 S AMPICILLIN <=8 S AMOXICILLIN/K CLAVULANATE <=8/4 S AZTREONAM <=4 S CEFTRIAXONE <=1 S CEFTAZIDIME <=1 S CEFOTAXIME <=2 S CEFOXITIN <=8 S CIPROFLOXACIN <=0.25 S CEFEPIME <=2 S CEFUROXIME <=4 S CEFTAZIDIME/AVIBACTAM <=4 S ERTAPENEM <=0.5 S GENTAMICIN <=2 S LEVOFLOXACIN <=0.5 S MEROPENEM <=1 S PIPERACILLIN/TAZOBACTAM <=8 S TRIMETHOPRIM/SULFAMETHOXAZOLE <=0.5/9.5 S TETRACYCLINE >8 R TOBRAMYCIN <=2 S Unless otherwise specified, Testing Performed by: [address] [address] For Inquires, the Physician may contact the Microbiology department at [phone] Assessment and Plan Assessmemt and Plan Problems Medical Problems: (1) Abdominal pain Status: Acute (2) Azotemia Status: Acute (3) Back pain Status: Acute (4) Bladder outlet obstruction Status: Acute (5) Pyelonephritis Status: Acute Comment Review of Relevant I have reviewed the following items gustavo (where applicable) has been applied. Labs Laboratory Tests Test 09/21/20 08:35 09/22/20 06:51 White Blood Count 21.2 x10^3/uL (4.0-11.0) 13.3 x10^3/uL (4.0-11.0) Red Blood Count 3.38 x10^6/uL (4.30-5.70) 3.33 x10^6/uL (4.30-5.70) Hemoglobin 9.6 g/dL (13.0-17.5) 9.6 g/dL (13.0-17.5) Hematocrit 30.4 % (39.0-53.0) 29.8 % (39.0-53.0) Mean Corpuscular Volume 90 fL (79-100) 89 fL (79-100) Mean Corpuscular Hemoglobin 29 pg (25-35) 29 pg (25-35) Mean Corpuscular Hemoglobin Concent 32 g/dL (31-37) 32 g/dL (31-37) Red Cell Distribution Width 15.7 % (11.5-14.5) 16.4 % (11.5-14.5) Platelet Count 162 x10^3/uL (140-400) 152 x10^3/uL (140-400) Neutrophils (%) (Auto) 90 % (31-73) 84 % (31-73) Lymphocytes (%) (Auto) 5 % (24-48) 8 % (24-48) Monocytes (%) (Auto) 4 % (0-9) 4 % (0-9) Eosinophils (%) (Auto) 2 % (0-3) 4 % (0-3) Basophils (%) (Auto) 0 % (0-3) 0 % (0-3) Neutrophils # (Auto) 19.0 x10^3/uL (1.8-7.7) 11.2 x10^3/uL (1.8-7.7) Lymphocytes # (Auto) 1.0 x10^3/uL (1.0-4.8) 1.1 x10^3/uL (1.0-4.8) Monocytes # (Auto) 0.8 x10^3/uL (0.0-1.1) 0.5 x10^3/uL (0.0-1.1) Eosinophils # (Auto) 0.3 x10^3/uL (0.0-0.7) 0.5 x10^3/uL (0.0-0.7) Basophils # (Auto) 0.1 x10^3/uL (0.0-0.2) 0.0 x10^3/uL (0.0-0.2) Sodium Level 147 mmol/L (136-145) 147 mmol/L (136-145) Potassium Level 3.5 mmol/L (3.5-5.1) 3.5 mmol/L (3.5-5.1) Chloride Level 114 mmol/L (98-107) 115 mmol/L (98-107) Carbon Dioxide Level 22 mmol/L (21-32) 22 mmol/L (21-32) Anion Gap 11 (6-14) 10 (6-14) Blood Urea Nitrogen 44 mg/dL (8-26) 38 mg/dL (8-26) Creatinine 1.1 mg/dL (0.7-1.3) 1.0 mg/dL (0.7-1.3) Estimated GFR (Cockcroft-Gault) 63.3 70.7 BUN/Creatinine Ratio 40 (6-20) 38 (6-20) Glucose Level 96 mg/dL (70-99) 97 mg/dL (70-99) Calcium Level 7.9 mg/dL (8.5-10.1) 8.0 mg/dL (8.5-10.1) Total Bilirubin 0.6 mg/dL (0.2-1.0) 0.4 mg/dL (0.2-1.0) Aspartate Amino Transf (AST/SGOT) 40 U/L (15-37) 25 U/L (15-37) Alanine Aminotransferase (ALT/SGPT) 43 U/L (16-63) 39 U/L (16-63) Alkaline Phosphatase 119 U/L (46-116) 112 U/L (46-116) Troponin I Quantitative 0.019 ng/mL (0.000-0.055) Total Protein 5.4 g/dL (6.4-8.2) 5.1 g/dL (6.4-8.2) Albumin 1.8 g/dL (3.4-5.0) 1.8 g/dL (3.4-5.0) Albumin/Globulin Ratio 0.5 (1.0-1.7) 0.5 (1.0-1.7) Triglycerides Level 156 mg/dL (0-150) Cholesterol Level 132 mg/dL (0-200) LDL Cholesterol, Calculated 76 mg/dL (0-100) VLDL Cholesterol, Calculated 31 mg/dL (0-40) Non-HDL Cholesterol Calculated 107 mg/dL (0-129) HDL Cholesterol 25 mg/dL (40-60) Cholesterol/HDL Ratio 5.3 Microbiology 09/20/20 Blood Culture - Preliminary, Resulted NO GROWTH AFTER 2 DAYS 09/19/20 Urine Culture - Final, Complete Medications Current Medications Morphine Sulfate (Morphine Sulfate) 4 mg 1X ONCE IV Last administered on 09/18/20at 22:10; Start 09/18/20 at 22:00; Stop 09/18/20 at 22:01; Status DC Ondansetron HCl (Zofran) 4 mg 1X ONCE IVP Last administered on 09/18/20at 22:10; Start 09/18/20 at 22:00; Stop 09/18/20 at 22:01; Status DC Lorazepam (Ativan Inj) 1 mg 1X ONCE IVP Last administered on 09/18/20at 22:29; Start 09/18/20 at 22:30; Stop 09/18/20 at 22:35; Status DC Iohexol (Omnipaque 300 Mg/ml) 60 ml 1X ONCE IV Last administered on 09/18/20at 23:15; Start 09/18/20 at 22:45; Stop 09/18/20 at 22:46; Status DC Info (CONTRAST GIVEN -- Rx MONITORING) 1 each PRN DAILY PRN MC SEE COMMENTS; Start 09/18/20 at 22:45; Stop 09/20/20 at 22:44; Status DC Piperacillin Sod/ Tazobactam Sod 3.375 gm/Sodium Chloride 50 ml @ 100 mls/hr 1X ONCE IV Last administered on 09/19/20at 00:32; Start 09/18/20 at 23:30; Stop 09/18/20 at 23:59; Status DC Sodium Chloride 1,000 ml @ 1,000 mls/hr 1X ONCE IV Last administered on 09/19/20at 00:32; Start 09/19/20 at 00:15; Stop 09/19/20 at 01:14; Status DC Ondansetron HCl (Zofran) 4 mg PRN Q8HRS PRN IV NAUSEA/VOMITING; Start 09/19/20 at 00:30; Stop 09/20/20 at 00:29; Status DC Sodium Chloride 1,000 ml @ 125 mls/hr 1X ONCE IV Last administered on 09/19/20at 01:37; Start 09/19/20 at 00:30; Stop 09/19/20 at 08:29; Status DC Olanzapine (ZyPREXA ZYDIS) 5 mg PRN BID PRN PO ANXIETY / AGITATION Last administered on 09/19/20at 15:15; Start 09/19/20 at 06:15 Psyllium Hydrophilic Mucilloid (Metamucil Fiber Packet) 1 pkt QHS PO Last administered on 09/22/20at 19:54; Start 09/19/20 at 21:00 Piperacillin Sod/ Tazobactam Sod 3.375 gm/Sodium Chloride 50 ml @ 100 mls/hr Q6HRS IV Last administered on 09/23/20at 05:46; Start 09/19/20 at 12:00 Piperacillin Sod/ Tazobactam Sod (Zosyn Per Pharmacy) 1 each PRN DAILY PRN MC SEE COMMENTS; Start 09/19/20 at 06:15 Sodium Chloride 1,000 ml @ 100 mls/hr Q10H IV Last administered on 09/19/20at 17:07; Start 09/19/20 at 06:15; Stop 09/20/20 at 12:58; Status DC Ondansetron HCl (Zofran) 4 mg PRN Q4HRS PRN IV NAUSEA/VOMITING; Start 09/19/20 at 06:15; Stop 09/21/20 at 15:11; Status DC Acetaminophen (Tylenol) 650 mg PRN Q4HRS PRN PO TEMP OVER 100.4F OR MILD PAIN Last administered on 09/21/20at 14:56; Start 09/19/20 at 06:15 Docusate Sodium (Colace) 100 mg PRN BID PRN PO HARD STOOLS Last administered on 09/21/20at 09:13; Start 09/19/20 at 06:15; Stop 09/21/20 at 15:12; Status DC Guaifenesin (Robitussin) 200 mg PRN Q4HRS PRN PO COUGH; Start 09/19/20 at 06:15 Piperacillin Sod/ Tazobactam Sod 3.375 gm/Sodium Chloride 50 ml @ 100 mls/hr ONCE ONCE IV Last administered on 09/19/20at 07:45; Start 09/19/20 at 07:30; Stop 09/19/20 at 07:59; Status DC Norepinephrine Bitartrate 8 mg/ Dextrose 258 ml @ 17.589 mls/ hr ONCE ONCE IV Last administered on 09/19/20at 08:27; Start 09/19/20 at 08:30; Stop 09/19/20 at 19:46; Status DC Norepinephrine Bitartrate 8 mg/ Dextrose 258 ml @ 17.589 mls/ hr CONT PRN IV PER PROTOCOL; Start 09/19/20 at 10:00; Stop 09/19/20 at 19:46; Status DC Sennosides (Senna) 17.2 mg PRN BID PRN PO CONSTIPATION; Start 09/19/20 at 12:00 Docusate Sodium (Colace) 100 mg PRN DAILY PRN PO HARD STOOLS; Start 09/19/20 at 12:00 Ondansetron HCl (Zofran) 4 mg PRN Q6HRS PRN IVP NAUSEA/VOMITING; Start 09/19/20 at 12:00 Dextrose (Dextrose 50%-Water Syringe) 12.5 gm PRN Q15MIN PRN IV SEE COMMENTS; Start 09/19/20 at 12:00 Sodium Chloride 1,000 ml @ 50 mls/hr Q20H IV Last administered on 09/23/20at 01:32; Start 09/19/20 at 12:00 Enoxaparin Sodium (Lovenox 30mg Syringe) 30 mg Q24H SQ Last administered on 09/19/20at 12:33; Start 09/19/20 at 12:30; Stop 09/20/20 at 07:55; Status DC Pantoprazole Sodium (PROTONIX VIAL for IV PUSH) 40 mg DAILYAC IVP Last administered on 09/22/20at 08:44; Start 09/19/20 at 12:00 Norepinephrine Bitartrate 8 mg/ Dextrose 258 ml @ 15.674 mls/ hr CONT PRN IV PER PROTOCOL Last administered on 09/19/20at 23:40; Start 09/19/20 at 19:45 Enoxaparin Sodium (Lovenox 40mg Syringe) 40 mg Q24H SQ Last administered on at 11:36; Start 09/20/20 at 12:00 Potassium Chloride (Klor-Con) 40 meq 1X ONCE PO Last administered on 09/20/20at 12:53; Start 09/20/20 at 12:30; Stop 09/20/20 at 12:45; Status DC Potassium Chloride (Klor-Con) 40 meq Q2H PO ; Start 09/20/20 at 12:30; Stop 09/20/20 at 14:31; Status UNV Potassium Chloride (Klor-Con) 40 meq Q2H PO ; Start 09/20/20 at 12:30; Stop 09/20/20 at 16:31; Status UNV Potassium Chloride/Water 100 ml @ 100 mls/hr Q1HR IV ; Start 09/20/20 at 13:00; Stop 09/20/20 at 18:59; Status UNV Magnesium Sulfate 100 ml @ 50 mls/hr DAILY IV ; Start 09/21/20 at 09:00; Stop 09/24/20 at 08:59; Status UNV Potassium Phos/ Sodium Phos (Phos-Nak) 1 pkt BID PO ; Start 09/20/20 at 21:00; Stop 09/21/20 at 09:01; Status UNV Sodium Phosphate 20 mmol/Sodium Chloride 256.6667 ml @ 62.5 mls/hr 1X ONCE IV ; Start 09/20/20 at 12:30; Stop 09/20/20 at 16:36; Status UNV Info (Icu Electrolyte Protocol) 1 ea CONT PRN PRN MC SEE COMMENTS; Start 09/20/20 at 12:45 Lactobacillus Rhamnosus (Culturelle) 1 cap BID PO Last administered on 09/22/20at 19:54; Start 09/20/20 at 21:00 Albuterol/ Ipratropium (Duoneb) 3 ml RTQID NEB Last administered on 09/22/20at 11:41; Start 09/21/20 at 12:00 Vitamin A/Vitamin D (Vitamin A & D Ointment) 1 kortney PRN Q1HR PRN TP SKIN PROTECTION Last administered on 09/21/20at 16:58; Start 09/21/20 at 11:15 Amiodarone HCl (Cordarone) 200 mg DAILY PO Last administered on 09/22/20at 08:45; Start 09/21/20 at 16:00 Aspirin (Rhianna Aspirin) 325 mg DAILY PO Last administered on 09/22/20at 08:45; Start 09/21/20 at 16:00 Simvastatin (Zocor) 20 mg QHS PO Last administered on 09/22/20at 19:54; Start 09/21/20 at 21:00 Vancomycin HCl (Vancomycin Oral Solution) 125 mg BID PO ; Start 09/22/20 at 09:00; Status UNV Lisinopril (Prinivil) 40 mg DAILY PO Last administered on 09/22/20at 13:27; Start 09/22/20 at 13:30 Active Scripts Active Reported Klor-Con M20 (Potassium Chloride) 20 Meq Tab.er.prt 20 Meq PO DAILY Ondansetron Hcl 4 Mg Tablet 8 Mg PO PRN Q8HRS PRN Milk Of Magnesia (Magnesium Hydroxide) 400 Mg/5 Ml Oral.susp 400 Mg PO PRN DAILY PRN Bisacodyl 10 Mg Supp.rect 10 Mg RC PRN DAILY PRN Artificial Tears Eye Drops (Dextran 70/Hypromellose) 15 Ml Drops 1 Drop EACHEYE PRN QID PRN A and D Ointment (Vits A and D/White Pet/Lanolin) 42.5 Gm Oint...g. 42.5 Gm TP BID Flomax (Tamsulosin Hcl) 0.4 Mg Cap.er.24h 1 Cap PO DAILY Famotidine 20 Mg Tablet 20 Mg PO BID Miralax (Polyethylene Glycol 3350) 17 Gm Powd.pack 1 Packet PO DAILY PRN 2 Days dissolve in water Lisinopril 40 Mg Tablet 1 Tab PO DAILY Flonase Allergy Relief (Fluticasone Propionate) 9.9 Ml [place].susp 1 Sprays NS DAILY PRN Finasteride 5 Mg Tablet 1 Tab PO DAILY Ferrous Sulfate 325 Mg Tablet 1 Tab PO DAILY Tylenol (Acetaminophen) 325 Mg Tablet 500 Mg PO PRN Q6HRS PRN Centrum Complete Multivit Tab (Multivitamin/Iron/Folic Acid) 1 Each Tablet 1 Each PO DAILY Aspirin 325 Mg Tablet 1 Tab PO DAILY Docusate Sodium 100 Mg Capsule 100 Mg PO TID Hydrochlorothiazide Tablet (Hydrochlorothiazide) 25 Mg Tablet 1 Tab PO DAILY Amiodarone Hcl 200 Mg Tablet 1 Tab PO DAILY Simvastatin 20 Mg Tablet 1 Tab PO QHS Vitals/I & O Vital Sign - Last 24 Hours 09/22/20 09/22/20 09/22/20 09/22/20 08:17 08:45 11:41 12:00 Temp 97.4 97.4 Pulse 73 68 Resp 30 B/P (MAP) 169/76 136/57 (83) Pulse Ox 94 97 99 O2 Delivery Room Air Room Air Room Air 09/22/20 09/22/20 09/22/20 09/22/20 13:27 16:00 19:27 20:00 Temp 97.8 97.8 Pulse 68 74 72 Resp 40 32 B/P (MAP) 136/57 188/77 (114) Pulse Ox 99 99 O2 Delivery Room Air Room Air Room Air 09/22/20 09/23/20 23:42 03:19 Temp 98.3 98.3 98.3 98.3 Pulse 72 62 Resp 32 32 B/P (MAP) 164/66 (98) 170/77 (108) Pulse Ox 98 98 O2 Delivery Room Air Room Air Intake and Output 09/22/20 09/22/20 09/23/20 15:00 23:00 07:00 Intake Total 200 ml 530 ml 1080 ml Output Total 150 ml 1150 ml Balance 50 ml 530 ml -70 ml Justicifation of Admission Dx: Justifications for Admission: Justification of Admission Dx: Yes JUSTINO CAMPOS MD Sep 23, 2020 08:02
[2020-09-23] MEDS: ASPIRIN 325 MG TABLET PO SCH (10:04)
[2020-09-23] MEDS: LACTOBACILLUS RHAMNOSUS GG 1 CAPSULE. PO SCH ×2 (10:04→21:00)
[2020-09-23] MEDS: AMIODARONE HCL 200 MG TABLET. PO SCH (10:05)
[2020-09-23] MEDS: PANTOPRAZOLE IV PUSH 40 MG VIAL. IVP SCH (10:05)
[2020-09-23] MEDS: LISINOPRIL 20 MG TABLET PO SCH (10:05)
--- NOTE | 2020-09-23 11:09 | PDOC ---
Infectious Disease Note Subjective: Subjective Patient resting comfortably Vital Signs: Vital Signs Vital Signs Date Time Temp Pulse Resp B/P (MAP) Pulse Ox O2 Delivery O2 Flow Rate FiO2 09/23/20 10:05 57 175/87 09/23/20 08:00 Room Air 09/23/20 07:00 97.7 25 96 97.7 Physical Exam: PHYSICAL EXAM GENERAL: Alert, awake male, comfortable, in no acute distress, on room air. HEENT: Normocephalic, atraumatic, anicteric. Oral mucosa moist. NECK: Supple, no JVD. LUNGS: Clear bilaterally. No wheezing. HEART: S1, S2, ABDOMEN: Soft, nondistended, nontender. Bowel sounds present. EXTREMITIES: No edema, no cyanosis. DERMATOLOGIC: Warm, dry. No generalized rash. NEUROLOGIC: Alert, awake, hard of hearing. Moves all four extremities, though weak. PSYCHIATRIC: Cooperative, calm. Medications: Inpatient Meds: Current Medications Medications (Trade) Dose Ordered Sig/Richi Start Time Stop Time Status Last Admin Dose Admin Acetaminophen (Tylenol) 650 mg PRN Q4HRS PRN 09/19/20 06:15 09/21/20 14:56 650 MG Albuterol/ Ipratropium (Duoneb) 3 ml RTQID 09/21/20 12:00 09/22/20 11:41 3 ML Amiodarone HCl (Cordarone) 200 mg DAILY 09/21/20 16:00 09/23/20 10:05 200 MG Ascorbic Acid (Vitamin C) 500 mg DAILY 09/24/20 09:00 Aspirin (Rhianna Aspirin) 325 mg DAILY 09/21/20 16:00 09/23/20 10:04 325 MG Dextrose (Dextrose 50%-Water Syringe) 12.5 gm PRN Q15MIN PRN 09/19/20 12:00 Docusate Sodium (Colace) 100 mg PRN DAILY PRN 09/19/20 12:00 Enoxaparin Sodium (Lovenox 30mg Syringe) 30 mg Q24H 09/19/20 12:30 09/20/20 07:55 DC 09/19/20 12:33 30 MG Enoxaparin Sodium (Lovenox 40mg Syringe) 40 mg Q24H 09/20/20 12:00 09/22/20 11:36 40 MG Guaifenesin (Robitussin) 200 mg PRN Q4HRS PRN 09/19/20 06:15 Info (CONTRAST GIVEN -- Rx MONITORING) 1 each PRN DAILY PRN 09/18/20 22:45 09/20/20 22:44 DC Info (Icu Electrolyte Protocol) 1 ea CONT PRN PRN 09/20/20 12:45 Iohexol (Omnipaque 300 Mg/ml) 60 ml 1X ONCE 09/18/20 22:45 09/18/20 22:46 DC 09/18/20 23:15 60 ML Lactobacillus Rhamnosus (Culturelle) 1 cap BID 09/20/20 21:00 09/23/20 10:04 1 CAP Lisinopril (Prinivil) 40 mg DAILY 09/22/20 13:30 09/23/20 10:05 40 MG Lorazepam (Ativan Inj) 1 mg 1X ONCE 09/18/20 22:30 09/18/20 22:35 DC 09/18/20 22:29 1 MG Magnesium Sulfate 100 ml @ 50 mls/hr DAILY 09/21/20 09:00 09/24/20 08:59 UNV Morphine Sulfate (Morphine Sulfate) 4 mg 1X ONCE 09/18/20 22:00 09/18/20 22:01 DC 09/18/20 22:10 4 MG Multivitamins (Thera M Plus) 1 tab DAILY 09/24/20 09:00 Norepinephrine Bitartrate 8 mg/ Dextrose 258 ml @ 15.674 mls/ hr CONT PRN 09/19/20 19:45 09/19/20 23:40 15.674 MLS/HR Olanzapine (ZyPREXA ZYDIS) 5 mg PRN BID PRN 09/19/20 06:15 09/19/20 15:15 5 MG Ondansetron HCl (Zofran) 4 mg PRN Q6HRS PRN 09/19/20 12:00 Pantoprazole Sodium (PROTONIX VIAL for IV PUSH) 40 mg DAILYAC 09/19/20 12:00 09/23/20 10:05 40 MG Piperacillin Sod/ Tazobactam Sod (Zosyn Per Pharmacy) 1 each PRN DAILY PRN 09/19/20 06:15 Piperacillin Sod/ Tazobactam Sod 3.375 gm/Sodium Chloride 50 ml @ 100 mls/hr ONCE ONCE 09/19/20 07:30 09/19/20 07:59 DC 09/19/20 07:45 100 MLS/HR Potassium Chloride/Water 100 ml @ 100 mls/hr Q1HR 09/20/20 13:00 09/20/20 18:59 UNV Potassium Chloride (Klor-Con) 40 meq Q2H 09/20/20 12:30 09/20/20 16:31 UNV Potassium Phos/ Sodium Phos (Phos-Nak) 1 pkt BID 09/20/20 21:00 09/21/20 09:01 UNV Psyllium Hydrophilic Mucilloid (Metamucil Fiber Packet) 1 pkt QHS 09/19/20 21:00 09/22/20 19:54 1 PKT Sennosides (Senna) 17.2 mg PRN BID PRN 09/19/20 12:00 Simvastatin (Zocor) 20 mg QHS 09/21/20 21:00 09/22/20 19:54 20 MG Sodium Chloride 1,000 ml @ 50 mls/hr Q20H 09/19/20 12:00 09/23/20 01:32 50 MLS/HR Sodium Phosphate 20 mmol/Sodium Chloride 256.6667 ml @ 62.5 mls/hr 1X ONCE 09/20/20 12:30 09/20/20 16:36 UNV Vancomycin HCl (Vancomycin Oral Solution) 125 mg BID 09/22/20 09:00 UNV Vitamin A/Vitamin D (Vitamin A & D Ointment) 1 kortney PRN Q1HR PRN 09/21/20 11:15 09/21/20 16:58 1 KORTNEY Objective: Assessment: 1. Sepsis from gram-negative bacteremia. 2. Proteus mirabilis bacteremia source appears genitourinary. 3. Urinary tract infection with chronic indwelling Hanna, status post exchange in ED.UC contaminant, 4. Leukocytosis.improving 5. Fever. resolved 6. Bilateral hydronephrosis with distended bladder.no hydronephrosis on ultrasound 7. BPH. 8. Chronic indwelling Hanna. 9. A 1.8 cm right adrenal gland nodule. 10. Sclerotic lesion at the right symphysis pubis on CT. 11. Hard of hearing. 12. Protein-calorie malnutrition. 13. H/O COVID 19 3 weeks ago 14 Increaed troponin, likely demand ischemia 15. . PAFIB 16. Hypertension , Hyperlipidemia 17. 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 Repeat UC pending Monitor labs and culture continue supportive care. If patient's condition does not improve or deteriorates, , he will need Urology evaluation and transfer to other facility as Urology is not available at this center. D/W ROBBIE CABALLERO MD Sep 23, 2020 11:09
--- NOTE | 2020-09-23 11:36 | PDOC ---
PULMONARY PROGRESS NOTES DATE: 09/23/20 TIME: 11:31 Subjective pt. remains on room air no overnight concerns Vitals Vital Signs Date Time Temp Pulse Resp B/P (MAP) Pulse Ox O2 Delivery O2 Flow Rate FiO2 09/23/20 10:05 57 175/87 09/23/20 08:00 Room Air 09/23/20 07:00 97.7 25 96 97.7 ROS: No Nausea, No Chest Pain, No Abdominal Pain, No Increase Cough General: Alert, Oriented X4 Lungs: Wheezing Cardiovascular: S1 Abdomen: Soft Neuro Exam: Alert Extremities: No Edema Skin: Warm Labs Laboratory Tests Test 09/22/20 06:51 White Blood Count 13.3 x10^3/uL (4.0-11.0) Red Blood Count 3.33 x10^6/uL (4.30-5.70) Hemoglobin 9.6 g/dL (13.0-17.5) Hematocrit 29.8 % (39.0-53.0) Mean Corpuscular Volume 89 fL (79-100) Mean Corpuscular Hemoglobin 29 pg (25-35) Mean Corpuscular Hemoglobin Concent 32 g/dL (31-37) Red Cell Distribution Width 16.4 % (11.5-14.5) Platelet Count 152 x10^3/uL (140-400) Neutrophils (%) (Auto) 84 % (31-73) Lymphocytes (%) (Auto) 8 % (24-48) Monocytes (%) (Auto) 4 % (0-9) Eosinophils (%) (Auto) 4 % (0-3) Basophils (%) (Auto) 0 % (0-3) Neutrophils # (Auto) 11.2 x10^3/uL (1.8-7.7) Lymphocytes # (Auto) 1.1 x10^3/uL (1.0-4.8) Monocytes # (Auto) 0.5 x10^3/uL (0.0-1.1) Eosinophils # (Auto) 0.5 x10^3/uL (0.0-0.7) Basophils # (Auto) 0.0 x10^3/uL (0.0-0.2) Sodium Level 147 mmol/L (136-145) Potassium Level 3.5 mmol/L (3.5-5.1) Chloride Level 115 mmol/L (98-107) Carbon Dioxide Level 22 mmol/L (21-32) Anion Gap 10 (6-14) Blood Urea Nitrogen 38 mg/dL (8-26) Creatinine 1.0 mg/dL (0.7-1.3) Estimated GFR (Cockcroft-Gault) 70.7 BUN/Creatinine Ratio 38 (6-20) Glucose Level 97 mg/dL (70-99) Calcium Level 8.0 mg/dL (8.5-10.1) Total Bilirubin 0.4 mg/dL (0.2-1.0) Aspartate Amino Transf (AST/SGOT) 25 U/L (15-37) Alanine Aminotransferase (ALT/SGPT) 39 U/L (16-63) Alkaline Phosphatase 112 U/L (46-116) Total Protein 5.1 g/dL (6.4-8.2) Albumin 1.8 g/dL (3.4-5.0) Albumin/Globulin Ratio 0.5 (1.0-1.7) Triglycerides Level 156 mg/dL (0-150) Cholesterol Level 132 mg/dL (0-200) LDL Cholesterol, Calculated 76 mg/dL (0-100) VLDL Cholesterol, Calculated 31 mg/dL (0-40) Non-HDL Cholesterol Calculated 107 mg/dL (0-129) HDL Cholesterol 25 mg/dL (40-60) Cholesterol/HDL Ratio 5.3 Medications Active Scripts Medications Dose Route/Sig Max Daily Dose Days Date Category Dose Instructions Klor-Con M20 (Potassium Chloride) 20 Meq Tab.er.prt 20 Meq PO DAILY 09/19/20 Reported Ondansetron Hcl 4 Mg Tablet 8 Mg PO PRN Q8HRS PRN 09/19/20 Reported Milk Of Magnesia (Magnesium Hydroxide) 400 Mg/5 Ml Oral.susp 400 Mg PO PRN DAILY PRN 09/19/20 Reported Bisacodyl 10 Mg Supp.rect 10 Mg RC PRN DAILY PRN 09/19/20 Reported Artificial Tears Eye Drops (Dextran 70/Hypromellose) 15 Ml Drops 1 Drop EACHEYE PRN QID PRN 09/19/20 Reported A and D Ointment (Vits A and D/White Pet/Lanolin) 42.5 Gm Oint...g. 42.5 Gm TP BID 09/19/20 Reported Flomax (Tamsulosin Hcl) 0.4 Mg Cap.er.24h 1 Cap PO DAILY 06/10/20 Reported Famotidine 20 Mg Tablet 20 Mg PO BID 06/10/20 Reported Miralax (Polyethylene Glycol 3350) 17 Gm Powd.pack 1 Packet PO DAILY PRN 2 06/10/20 Reported dissolve in water Lisinopril 40 Mg Tablet 1 Tab PO DAILY 06/10/20 Reported Flonase Allergy Relief (Fluticasone Propionate) 9.9 M[address] [place].susp 1 Sprays NS DAILY PRN 06/10/20 Reported Finasteride 5 Mg Tablet 1 Tab PO DAILY 06/10/20 Reported Ferrous Sulfate 325 Mg Tablet 1 Tab PO DAILY 06/10/20 Reported Tylenol (Acetaminophen) 325 Mg Tablet 500 Mg PO PRN Q6HRS PRN 11/11/15 Reported Centrum Complete Multivit Tab (Multivitamin/Iron/Folic Acid) 1 Each Tablet 1 Each PO DAILY 11/11/15 Reported Aspirin 325 Mg Tablet 1 Tab PO DAILY 11/11/15 Reported Docusate Sodium 100 Mg Capsule 100 Mg PO TID 11/11/15 Reported Hydrochlorothiazide Tablet (Hydrochlorothiazide) 25 Mg Tablet 1 Tab PO DAILY 11/11/15 Reported Amiodarone Hcl 200 Mg Tablet 1 Tab PO DAILY 11/11/15 Reported Simvastatin 20 Mg Tablet 1 Tab PO QHS 11/11/15 Reported Comments CXR IMPRESSION: 1. Bilateral perihilar opacities, likely edema or multifocal infection. 2. Small left pleural effusion. Impression . IMPRESSION: 1. Abnormal chest x-ray compatible with possible pulmonary edema or pneumonia, doubt COVID-19. 2. Gram-negative bacteremia. 3. Proteus mirabilis bacteremia, source appears to be genitourinary tract. 4. Chronic indwelling Hanna catheter. 5. Leukocytosis. 6. Fever, resolved. 7. Bilateral hydronephrosis with distended bladder seen on ultrasound. 8. Chronic renal insufficiency. 9. History of COVID-19 two weeks ago. Plan . PLAN: Continue supplemental oxygen if needed, remains on room air Follow ID recs in regards to ABX Await Covid -19 test, if pcr positive unlikely new infection as pt. was positive two weeks ago Follow cardiology recs-- diuresis PT/OT DVT/GI PPX D/W RN Pt. is a DNR ok to transfer out of ICU from our standpoint YAMIL LUCIANO MD Sep 23, 2020 11:36
[2020-09-23] MEDS: ENOXAPARIN 40 MG/0.4 ML SYRINGE. SQ SCH (12:43)
[2020-09-23] MEDS: cefTRIAXone IV Push 2 GM VIAL. IVP SCH (15:34)
[2020-09-23 17:38] LABS: CALCIUM 7.9 mg/dL (8.5-10.1); CREATININE 0.8 mg/dL (0.7-1.3); GFR 91.4; MAGNESIUM 1.7 mg/dL (1.8-2.4); PHOSPHORUS 2.2 mg/dL (2.6-4.7); POTASSIUM 3.1 mmol/L (3.5-5.1)
[2020-09-23] MEDS: SIMVASTATIN 20 MG TABLET PO SCH (21:00)
[2020-09-23] MEDS: PSYLLIUM HUSK (SUGAR FREE) 1 PKT PACKET PO SCH (21:00)
[2020-09-23] MEDS: ALBUTEROL SULFATE 8GM INHALER. INH SCH (22:00)
[2020-09-24 03:26] VITALS: BP 171/82
[2020-09-24 04:55] LABS: BASO # 0.1 x10^3/uL (0.0-0.2); BASO % 1 % (0-3); EOS # 0.8 x10^3/uL (0.0-0.7); EOS % 6 % (0-3); HEMATOCRIT 33.7 % (39.0-53.0); HEMOGLOBIN 10.9 g/dL (13.0-17.5); LYMPH # 1.2 x10^3/uL (1.0-4.8); LYMPH % 10 % (24-48); MEAN CORPUSCULAR HEMOGLOBIN 29 pg (25-35); MEAN CORPUSCULAR HGB CONC 32 g/dL (31-37); MEAN CORPUSCULAR VOLUME 89 fL (79-100); MONO # 0.8 x10^3/uL (0.0-1.1); MONO % 6 % (0-9); NEUT % 78 % (31-73); PLATELET COUNT 192 x10^3/uL (140-400); RED BLOOD COUNT 3.81 x10^6/uL (4.30-5.70); RED CELL DISTRIBUTION WIDTH 16.3 % (11.5-14.5); WHITE BLOOD COUNT 12.8 x10^3/uL (4.0-11.0)
[2020-09-24] MEDS: IV NORMAL SALINE 1000ML BAG 1,000 ML IV SCH ×2 (06:10→20:57)
[2020-09-24 07:00] VITALS: BP 182/75
[2020-09-24] MEDS: IPRATRPIUM/ALBUTEROL 0.5/2.5MG 3 ML NEBU. NEB SCH ×2 (08:00→09:57)
[2020-09-24] MEDS: PANTOPRAZOLE IV PUSH 40 MG VIAL. IVP SCH (08:39)
[2020-09-24] MEDS: ALBUTEROL SULFATE 8GM INHALER. INH SCH ×4 (08:40→20:46)
[2020-09-24] MEDS: MULTIVITAMIN with MINERAL TABLET. PO SCH (08:41)
[2020-09-24] MEDS: LACTOBACILLUS RHAMNOSUS GG 1 CAPSULE. PO SCH ×2 (08:41→20:41)
[2020-09-24] MEDS: ASCORBIC ACID 500 MG TABLET PO SCH (08:41)
[2020-09-24] MEDS: ASPIRIN 325 MG TABLET PO SCH (08:41)
[2020-09-24] MEDS: LISINOPRIL 20 MG TABLET PO SCH (08:42)
[2020-09-24] MEDS: AMIODARONE HCL 200 MG TABLET. PO SCH (08:42)
--- NOTE | 2020-09-24 09:33 | PDOC ---
PULMONARY PROGRESS NOTES DATE: 09/24/20 TIME: 09:30 Subjective pt. remains on room air no overnight concerns Vitals Vital Signs Date Time Temp Pulse Resp B/P (MAP) Pulse Ox O2 Delivery O2 Flow Rate FiO2 09/24/20 08:42 72 182/75 09/24/20 07:00 96.8 20 92 Room Air 96.8 ROS: No Nausea, No Chest Pain, No Abdominal Pain, No Increase Cough General: Alert, Oriented X4 Lungs: Wheezing Cardiovascular: S1 Abdomen: Soft Neuro Exam: Alert Extremities: No Edema Skin: Warm Labs Laboratory Tests Test 09/22/20 12:40 09/23/20 15:48 09/24/20 04:30 Coronavirus (PCR) Detected (Not Detected) Sodium Level 142 mmol/L (136-145) Potassium Level 3.1 mmol/L (3.5-5.1) Chloride Level 110 mmol/L (98-107) Carbon Dioxide Level 24 mmol/L (21-32) Anion Gap 8 (6-14) Blood Urea Nitrogen 20 mg/dL (8-26) Creatinine 0.8 mg/dL (0.7-1.3) Estimated GFR (Cockcroft-Gault) 91.4 Glucose Level 92 mg/dL (70-99) Calcium Level 7.9 mg/dL (8.5-10.1) Phosphorus Level 2.2 mg/dL (2.6-4.7) Magnesium Level 1.7 mg/dL (1.8-2.4) White Blood Count 12.8 x10^3/uL (4.0-11.0) Red Blood Count 3.81 x10^6/uL (4.30-5.70) Hemoglobin 10.9 g/dL (13.0-17.5) Hematocrit 33.7 % (39.0-53.0) Mean Corpuscular Volume 89 fL (79-100) Mean Corpuscular Hemoglobin 29 pg (25-35) Mean Corpuscular Hemoglobin Concent 32 g/dL (31-37) Red Cell Distribution Width 16.3 % (11.5-14.5) Platelet Count 192 x10^3/uL (140-400) Neutrophils (%) (Auto) 78 % (31-73) Lymphocytes (%) (Auto) 10 % (24-48) Monocytes (%) (Auto) 6 % (0-9) Eosinophils (%) (Auto) 6 % (0-3) Basophils (%) (Auto) 1 % (0-3) Neutrophils # (Auto) 10.0 x10^3/uL (1.8-7.7) Lymphocytes # (Auto) 1.2 x10^3/uL (1.0-4.8) Monocytes # (Auto) 0.8 x10^3/uL (0.0-1.1) Eosinophils # (Auto) 0.8 x10^3/uL (0.0-0.7) Basophils # (Auto) 0.1 x10^3/uL (0.0-0.2) Laboratory Tests Test 09/23/20 15:48 09/24/20 04:30 Sodium Level 142 mmol/L (136-145) Potassium Level 3.1 mmol/L (3.5-5.1) Chloride Level 110 mmol/L (98-107) Carbon Dioxide Level 24 mmol/L (21-32) Anion Gap 8 (6-14) Blood Urea Nitrogen 20 mg/dL (8-26) Creatinine 0.8 mg/dL (0.7-1.3) Estimated GFR (Cockcroft-Gault) 91.4 Glucose Level 92 mg/dL (70-99) Calcium Level 7.9 mg/dL (8.5-10.1) Phosphorus Level 2.2 mg/dL (2.6-4.7) Magnesium Level 1.7 mg/dL (1.8-2.4) White Blood Count 12.8 x10^3/uL (4.0-11.0) Red Blood Count 3.81 x10^6/uL (4.30-5.70) Hemoglobin 10.9 g/dL (13.0-17.5) Hematocrit 33.7 % (39.0-53.0) Mean Corpuscular Volume 89 fL (79-100) Mean Corpuscular Hemoglobin 29 pg (25-35) Mean Corpuscular Hemoglobin Concent 32 g/dL (31-37) Red Cell Distribution Width 16.3 % (11.5-14.5) Platelet Count 192 x10^3/uL (140-400) Neutrophils (%) (Auto) 78 % (31-73) Lymphocytes (%) (Auto) 10 % (24-48) Monocytes (%) (Auto) 6 % (0-9) Eosinophils (%) (Auto) 6 % (0-3) Basophils (%) (Auto) 1 % (0-3) Neutrophils # (Auto) 10.0 x10^3/uL (1.8-7.7) Lymphocytes # (Auto) 1.2 x10^3/uL (1.0-4.8) Monocytes # (Auto) 0.8 x10^3/uL (0.0-1.1) Eosinophils # (Auto) 0.8 x10^3/uL (0.0-0.7) Basophils # (Auto) 0.1 x10^3/uL (0.0-0.2) Medications Active Scripts Medications Dose Route/Sig Max Daily Dose Days Date Category Dose Instructions Klor-Con M20 (Potassium Chloride) 20 Meq Tab.er.prt 20 Meq PO DAILY 09/19/20 Reported Ondansetron Hcl 4 Mg Tablet 8 Mg PO PRN Q8HRS PRN 09/19/20 Reported Milk Of Magnesia (Magnesium Hydroxide) 400 Mg/5 Ml Oral.susp 400 Mg PO PRN DAILY PRN 09/19/20 Reported Bisacodyl 10 Mg Supp.rect 10 Mg RC PRN DAILY PRN 09/19/20 Reported Artificial Tears Eye Drops (Dextran 70/Hypromellose) 15 Ml Drops 1 Drop EACHEYE PRN QID PRN 09/19/20 Reported A and D Ointment (Vits A and D/White Pet/Lanolin) 42.5 Gm Oint...g. 42.5 Gm TP BID 09/19/20 Reported Flomax (Tamsulosin Hcl) 0.4 Mg Cap.er.24h 1 Cap PO DAILY 06/10/20 Reported Famotidine 20 Mg Tablet 20 Mg PO BID 06/10/20 Reported Miralax (Polyethylene Glycol 3350) 17 Gm Powd.pack 1 Packet PO DAILY PRN 2 06/10/20 Reported dissolve in water Lisinopril 40 Mg Tablet 1 Tab PO DAILY 06/10/20 Reported Flonase Allergy Relief (Fluticasone Propionate) 9.9 Ml [place].susp 1 Sprays NS DAILY PRN 06/10/20 Reported Finasteride 5 Mg Tablet 1 Tab PO DAILY 06/10/20 Reported Ferrous Sulfate 325 Mg Tablet 1 Tab PO DAILY 06/10/20 Reported Tylenol (Acetaminophen) 325 Mg Tablet 500 Mg PO PRN Q6HRS PRN 11/11/15 Reported Centrum Complete Multivit Tab (Multivitamin/Iron/Folic Acid) 1 Each Tablet 1 Each PO DAILY 11/11/15 Reported Aspirin 325 Mg Tablet 1 Tab PO DAILY 11/11/15 Reported Docusate Sodium 100 Mg Capsule 100 Mg PO TID 11/11/15 Reported Hydrochlorothiazide Tablet (Hydrochlorothiazide) 25 Mg Tablet 1 Tab PO DAILY 11/11/15 Reported Amiodarone Hcl 200 Mg Tablet 1 Tab PO DAILY 11/11/15 Reported Simvastatin 20 Mg Tablet 1 Tab PO QHS 11/11/15 Reported Comments CXR IMPRESSION: 1. Bilateral perihilar opacities, likely edema or multifocal infection. 2. Small left pleural effusion. Impression . IMPRESSION: 1. Abnormal chest x-ray compatible with possible pulmonary edema or pneumonia, 2. Gram-negative bacteremia. 3. Proteus mirabilis bacteremia, source appears to be genitourinary tract. 4. Chronic indwelling Hanna catheter. 5. Leukocytosis. 6. Fever, resolved. 7. Bilateral hydronephrosis with distended bladder seen on ultrasound. 8. Chronic renal insufficiency. 9. History of COVID-19 two weeks ago. Repeat test positive doubt that this is causing any respiratory distress Plan . Suspect SARS Covid 2+ from previous infection. Not concerning for new infection. Patient on room air Continue supplemental oxygen if needed, remains on room air Follow ID recs in regards to ABX Follow cardiology recs-- diuresis PT/OT DVT/GI PPX D/W RN Pt. is a DNR YAMIL LUCIANO MD Sep 24, 2020 09:33
[2020-09-24] MEDS ORDERED: IPRATRPIUM/ALBUTEROL 0.5/2.5MG 3 ML NEBU. NEB PRN (10:15)
--- NOTE | 2020-09-24 10:24 | PDOC ---
Infectious Disease Note Subjective: Subjective Patient resting comfortably on RA Vital Signs: Vital Signs Vital Signs Date Time Temp Pulse Resp B/P (MAP) Pulse Ox O2 Delivery O2 Flow Rate FiO2 09/24/20 08:42 72 182/75 09/24/20 07:00 96.8 20 92 Room Air 96.8 Physical Exam: PHYSICAL EXAM GENERAL: Alert, awake male, comfortable, in no acute distress, on room air. HEENT: Normocephalic, atraumatic, anicteric. Oral mucosa moist. NECK: Supple, no JVD. LUNGS: Clear bilaterally. No wheezing. HEART: S1, S2, ABDOMEN: Soft, nondistended, nontender. Bowel sounds present. EXTREMITIES: No edema, no cyanosis. DERMATOLOGIC: Warm, dry. No generalized rash. NEUROLOGIC: Alert, awake, hard of hearing. Moves all four extremities, though weak. PSYCHIATRIC: Cooperative, calm. Medications: Inpatient Meds: Current Medications Medications (Trade) Dose Ordered Sig/Richi Start Time Stop Time Status Last Admin Dose Admin Acetaminophen (Tylenol) 650 mg PRN Q4HRS PRN 09/19/20 06:15 09/21/20 14:56 650 MG Acetaminophen/ Hydrocodone Bitart (Lortab 5/325) 1 tab PRN Q4HRS PRN 09/23/20 21:00 Albuterol Sulfate (Ventolin Hfa) 1 puff RTQID 09/23/20 22:00 09/24/20 08:40 1 PUFF Albuterol/ Ipratropium (Duoneb) 3 ml PRN Q4HRS PRN 09/24/20 10:15 Amiodarone HCl (Cordarone) 200 mg DAILY 09/21/20 16:00 09/24/20 08:42 200 MG Amlodipine Besylate (Norvasc) 5 mg DAILY 09/23/20 18:30 09/24/20 08:41 5 MG Ascorbic Acid (Vitamin C) 500 mg DAILY 09/24/20 09:00 09/24/20 08:41 500 MG Aspirin (Rhianna Aspirin) 325 mg DAILY 09/21/20 16:00 09/24/20 08:41 325 MG Ceftriaxone Sodium (Rocephin) 2 gm Q24H 09/23/20 14:00 09/23/20 15:34 2 GM Dextrose (Dextrose 50%-Water Syringe) 12.5 gm PRN Q15MIN PRN 09/19/20 12:00 Docusate Sodium (Colace) 100 mg PRN DAILY PRN 09/19/20 12:00 Enoxaparin Sodium (Lovenox 30mg Syringe) 30 mg Q24H 09/19/20 12:30 09/20/20 07:55 DC 09/19/20 12:33 30 MG Enoxaparin Sodium (Lovenox 40mg Syringe) 40 mg Q24H 09/20/20 12:00 09/23/20 12:43 40 MG Guaifenesin (Robitussin) 200 mg PRN Q4HRS PRN 09/19/20 06:15 Info (CONTRAST GIVEN -- Rx MONITORING) 1 each PRN DAILY PRN 09/18/20 22:45 09/20/20 22:44 DC Info (Icu Electrolyte Protocol) 1 ea CONT PRN PRN 09/20/20 12:45 Iohexol (Omnipaque 300 Mg/ml) 60 ml 1X ONCE 09/18/20 22:45 09/18/20 22:46 DC 09/18/20 23:15 60 ML Lactobacillus Rhamnosus (Culturelle) 1 cap BID 09/20/20 21:00 09/24/20 08:41 1 CAP Lisinopril (Prinivil) 40 mg DAILY 09/22/20 13:30 09/24/20 08:42 40 MG Lorazepam (Ativan Inj) 1 mg 1X ONCE 09/18/20 22:30 09/18/20 22:35 DC 09/18/20 22:29 1 MG Magnesium Sulfate 100 ml @ 50 mls/hr DAILY 09/21/20 09:00 09/24/20 08:59 UNV Morphine Sulfate (Morphine Sulfate) 4 mg 1X ONCE 09/18/20 22:00 09/18/20 22:01 DC 09/18/20 22:10 4 MG Multivitamins (Thera M Plus) 1 tab DAILY 09/24/20 09:00 09/24/20 08:41 1 TAB Norepinephrine Bitartrate 8 mg/ Dextrose 258 ml @ 15.674 mls/ hr CONT PRN 09/19/20 19:45 09/23/20 20:44 DC 09/19/20 23:40 15.674 MLS/HR Olanzapine (ZyPREXA ZYDIS) 5 mg PRN BID PRN 09/19/20 06:15 09/19/20 15:15 5 MG Ondansetron HCl (Zofran) 4 mg PRN Q6HRS PRN 09/19/20 12:00 Pantoprazole Sodium (PROTONIX VIAL for IV PUSH) 40 mg DAILYAC 09/19/20 12:00 09/24/20 08:39 40 MG Piperacillin Sod/ Tazobactam Sod (Zosyn Per Pharmacy) 1 each PRN DAILY PRN 09/19/20 06:15 Cancel Piperacillin Sod/ Tazobactam Sod 3.375 gm/Sodium Chloride 50 ml @ 100 mls/hr ONCE ONCE 09/19/20 07:30 09/19/20 07:59 DC 09/19/20 07:45 100 MLS/HR Potassium Chloride/Water 100 ml @ 100 mls/hr Q1HR 09/20/20 13:00 09/20/20 18:59 UNV Potassium Chloride (Klor-Con) 40 meq Q2H 09/20/20 12:30 09/20/20 16:31 UNV Potassium Phos/ Sodium Phos (Phos-Nak) 1 pkt BID 09/20/20 21:00 09/21/20 09:01 UNV Psyllium Hydrophilic Mucilloid (Metamucil Fiber Packet) 1 pkt QHS 09/19/20 21:00 09/22/20 19:54 1 PKT Sennosides (Senna) 17.2 mg PRN BID PRN 09/19/20 12:00 Simvastatin (Zocor) 20 mg QHS 09/21/20 21:00 09/22/20 19:54 20 MG Sodium Chloride 1,000 ml @ 50 mls/hr Q20H 09/19/20 12:00 09/24/20 06:10 50 MLS/HR Sodium Phosphate 20 mmol/Sodium Chloride 256.6667 ml @ 62.5 mls/hr 1X ONCE 09/20/20 12:30 09/20/20 16:36 UNV Vancomycin HCl (Vancomycin Oral Solution) 125 mg BID 09/22/20 09:00 UNV Vitamin A/Vitamin D (Vitamin A & D Ointment) 1 kortney PRN Q1HR PRN 09/21/20 11:15 09/21/20 16:58 1 KORTNEY Labs: Lab Laboratory Tests Test 09/23/20 15:48 09/24/20 04:30 Sodium Level 142 mmol/L (136-145) Potassium Level 3.1 mmol/L (3.5-5.1) Chloride Level 110 mmol/L (98-107) Carbon Dioxide Level 24 mmol/L (21-32) Anion Gap 8 (6-14) Blood Urea Nitrogen 20 mg/dL (8-26) Creatinine 0.8 mg/dL (0.7-1.3) Estimated GFR (Cockcroft-Gault) 91.4 Glucose Level 92 mg/dL (70-99) Calcium Level 7.9 mg/dL (8.5-10.1) Phosphorus Level 2.2 mg/dL (2.6-4.7) Magnesium Level 1.7 mg/dL (1.8-2.4) White Blood Count 12.8 x10^3/uL (4.0-11.0) Red Blood Count 3.81 x10^6/uL (4.30-5.70) Hemoglobin 10.9 g/dL (13.0-17.5) Hematocrit 33.7 % (39.0-53.0) Mean Corpuscular Volume 89 fL (79-100) Mean Corpuscular Hemoglobin 29 pg (25-35) Mean Corpuscular Hemoglobin Concent 32 g/dL (31-37) Red Cell Distribution Width 16.3 % (11.5-14.5) Platelet Count 192 x10^3/uL (140-400) Neutrophils (%) (Auto) 78 % (31-73) Lymphocytes (%) (Auto) 10 % (24-48) Monocytes (%) (Auto) 6 % (0-9) Eosinophils (%) (Auto) 6 % (0-3) Basophils (%) (Auto) 1 % (0-3) Neutrophils # (Auto) 10.0 x10^3/uL (1.8-7.7) Lymphocytes # (Auto) 1.2 x10^3/uL (1.0-4.8) Monocytes # (Auto) 0.8 x10^3/uL (0.0-1.1) Eosinophils # (Auto) 0.8 x10^3/uL (0.0-0.7) Basophils # (Auto) 0.1 x10^3/uL (0.0-0.2) Objective: Assessment: 1. Sepsis from gram-negative bacteremia. 2. Proteus mirabilis bacteremia source appears genitourinary. 3. Urinary tract infection with chronic indwelling Hanna, status post exchange in ED.UC contaminant, 4. Leukocytosis.improving 5. Fever. resolved 6. Bilateral hydronephrosis with distended bladder.no hydronephrosis on ultrasound 7. BPH. 8. Chronic indwelling Hanna. 9. A 1.8 cm right adrenal gland nodule. 10. Sclerotic lesion at the right symphysis pubis on CT. 11. Hard of hearing. 12. Protein-calorie malnutrition. 13. H/O COVID 19 3 weeks ago; Covid positive here again 14 Increaed troponin, likely demand ischemia 15. . PAFIB 16. Hypertension , Hyperlipidemia 17. Anemia on amiodarone Plan: Plan of Care CONT ceftriaxone Hanna has been exchanged. Repeat UC pending Monitor labs and culture continue supportive care. h/o Covid 3 weeks ago, repeat remains positive here, remains on room air If patient's condition does not improve or deteriorates, , he will need Urology evaluation and transfer to other facility as Urology is not available at this center. D/W ROBBIE CABALLERO MD Sep 24, 2020 10:24
[2020-09-24 11:00] VITALS: BP 138/69
[2020-09-24] MEDS: ENOXAPARIN 40 MG/0.4 ML SYRINGE. SQ SCH (12:02)
[2020-09-24 15:00] VITALS: BP 149/68
--- NOTE | 2020-09-24 15:02 | PDOC ---
[facility] PROGRESS NOTE Date of Service DOS: DATE: 09/24/20 TIME: 15:01 Chief Complaint Chief Complaint Sepsis due to UTI and COVID-19 infection gram neg bacteremia Hemodynamic instability Acute UTI secondary to bladder outlet obstruction No hydronephrosis. 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 cxr 09-21 plan Continue medical management Exchange Hanna catheter and flushed appropriately empiric IV antibiotics blood and urine cultures Judicious IV fluids Continue Levophed for vasopressor support map goal of 65 Strict I's and O's A.m. cortisol level and TSH Repeat troponin Heparin for DVT prophylaxis Protonix GI prophylaxis ADA diet Full code Discussed with RN and SW glenn qid cardiology consult covid pcr BLADDER SCAN PROTOCOL BY US No hydronephrosis. ID CONSULT, REPEAT BLOOD CULT 09-20 Disposition inpatient management as above Surrogate decision maker is the daughter LOOD CULTURE Final GRAM NEGATIVE RODS, IN 2 OF 4 BOTTLES, TWO SETS DRAWN. ONE SET IS POSITIVE. CONSIDER UROLOGY REFERRAL but No hydronephrosis. 09-23 MORE ALERT, SOME EXP WHEEZES to cvc bed later today , cxr glenn PT/OT DVT/GI PPX D/W RN Pt. is a DNR 34 minutes of critical care time was spent in reviewing chart, labs, and images. Discussed with RN and MIALD. History of Present Illness History of Present Illness 09/24/2020 No acute events overnight. Patient saturating 93% on room air. Continues to be confused which may be his baseline status. Patient's chart, labs, images were reviewed and discussed with RN History of Present Illness: HPI: 85 year old male with past medical history of atrial fibrillation, GERD, dyslipidemia, hypertension who arrives via EMS with a chief complaint of abdominal pain and back pain. Pain began about 4 PM DAY OF ADMIT . Patient describes 10 out of 10 abdominal pain worse on the left side as well as lumbar back pain that is not as severe. Patient is extremely hard of hearing therefore history, physical review of systems are extremely difficult to obtain due to his inability to hear and answer questions. Patient daughter states that patient does have a Hanna that is indwelling and she is unsure when it was exchanged or flushed. 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,BACK SURG,CARPAL TUNNEL Allergies: Allergies: Coded Allergies: No Known Drug Allergies (Unverified , 08/29/13) Family History: Family History: Reviewed with no relevant findings Social History: Social History: Smoking Status: Never Smoker Alcohol Use: None Drug Use: None Vitals/I&O Vitals/I&O: Vital Signs Date Time Temp Pulse Resp B/P (MAP) Pulse Ox O2 Delivery O2 Flow Rate FiO2 09/24/20 11:00 97.7 60 20 138/69 (92) 93 Room Air 97.7 09/24/20 08:00 2.0 I & O 09/23/20 09/23/20 09/24/20 15:00 23:00 07:00 Intake Total 1458 ml 360 ml Output Total 350 ml 2400 ml 2500 ml Balance -350 ml -942 ml -2140 ml Physical Exam Physical Exam: GENERAL: Alert, awake male, comfortable, in no acute distress, on room air. HEENT: Normocephalic, atraumatic, anicteric. Oral mucosa moist. NECK: Supple, no JVD. LUNGS: Clear bilaterally. No wheezing. HEART: S1, S2, ABDOMEN: Soft, nondistended, nontender. Bowel sounds present. EXTREMITIES: No edema, no cyanosis. DERMATOLOGIC: Warm, dry. No generalized rash. NEUROLOGIC: Alert, awake, hard of hearing. Moves all four extremities, though weak. PSYCHIATRIC: Cooperative, calm. General: Alert, Oriented X3, Cooperative, No acute distress Heart: Regular rate, Other (distant heart tones ) Lungs: Wheezing Abdomen: Normal bowel sounds, Soft Extremities: No edema Skin: No significant lesion Labs Labs: Laboratory Tests Test 09/23/20 15:48 09/24/20 04:30 Sodium Level 142 mmol/L (136-145) Potassium Level 3.1 mmol/L (3.5-5.1) Chloride Level 110 mmol/L (98-107) Carbon Dioxide Level 24 mmol/L (21-32) Anion Gap 8 (6-14) Blood Urea Nitrogen 20 mg/dL (8-26) Creatinine 0.8 mg/dL (0.7-1.3) Estimated GFR (Cockcroft-Gault) 91.4 Glucose Level 92 mg/dL (70-99) Calcium Level 7.9 mg/dL (8.5-10.1) Phosphorus Level 2.2 mg/dL (2.6-4.7) Magnesium Level 1.7 mg/dL (1.8-2.4) White Blood Count 12.8 x10^3/uL (4.0-11.0) Red Blood Count 3.81 x10^6/uL (4.30-5.70) Hemoglobin 10.9 g/dL (13.0-17.5) Hematocrit 33.7 % (39.0-53.0) Mean Corpuscular Volume 89 fL (79-100) Mean Corpuscular Hemoglobin 29 pg (25-35) Mean Corpuscular Hemoglobin Concent 32 g/dL (31-37) Red Cell Distribution Width 16.3 % (11.5-14.5) Platelet Count 192 x10^3/uL (140-400) Neutrophils (%) (Auto) 78 % (31-73) Lymphocytes (%) (Auto) 10 % (24-48) Monocytes (%) (Auto) 6 % (0-9) Eosinophils (%) (Auto) 6 % (0-3) Basophils (%) (Auto) 1 % (0-3) Neutrophils # (Auto) 10.0 x10^3/uL (1.8-7.7) Lymphocytes # (Auto) 1.2 x10^3/uL (1.0-4.8) Monocytes # (Auto) 0.8 x10^3/uL (0.0-1.1) Eosinophils # (Auto) 0.8 x10^3/uL (0.0-0.7) Basophils # (Auto) 0.1 x10^3/uL (0.0-0.2) Assessment and Plan Assessmemt and Plan Problems Medical Problems: (1) Abdominal pain Status: Acute (2) Azotemia Status: Acute (3) Back pain Status: Acute (4) Bladder outlet obstruction Status: Acute (5) Pyelonephritis Status: Acute Comment Review of Relevant I have reviewed the following items gustavo (where applicable) has been applied. Medications: Current Medications Medications (Trade) Dose Ordered Sig/Richi Route PRN Reason Start Time Stop Time Status Last Admin Dose Admin Ascorbic Acid (Vitamin C) 500 mg DAILY PO 09/24/20 09:00 09/24/20 08:41 Multivitamins (Thera M Plus) 1 tab DAILY PO 09/24/20 09:00 09/24/20 08:41 Amlodipine Besylate (Norvasc) 5 mg DAILY PO 09/23/20 18:30 09/24/20 08:41 Albuterol Sulfate (Ventolin Hfa) 1 puff RTQID INH 09/23/20 22:00 09/24/20 08:40 Justifications for Admission UTI Indications Is NPO status required?: Yes Justification for admission: Patient may require to be NPO for greater 24hours making it medically necessary to manage patient as inpatient. Altered Mental Status?: Yes Justification for admission: There is concern for patient's severe or persistent Altered Mental Status as indicated by patient's confusional state or lethargy making it medically necessary to manage this patient in the inpatient setting. Worse Clinical Findings?: Yes Justification for admission: Patient's worsening clinical findings as indicated (by a fever of & pain of) despite outpatient/observation treatment makes it imperative that patient is managed as an inpatient. Other Justification Acute renal failure MAGALY DAVIS MD Sep 24, 2020 15:02
[2020-09-24] MEDS: cefTRIAXone IV Push 2 GM VIAL. IVP SCH (15:09)
[2020-09-24 19:45] VITALS: BP 171/73
[2020-09-24] MEDS: PSYLLIUM HUSK (SUGAR FREE) 1 PKT PACKET PO SCH (20:41)
[2020-09-24] MEDS: SIMVASTATIN 20 MG TABLET PO SCH (20:41)
[2020-09-24 23:35] VITALS: BP 168/74
[2020-09-25] VITALS (7 sets, daily range): BP systolic 131–176; BP diastolic 54–74
--- NOTE | 2020-09-25 08:49 | PDOC ---
Infectious Disease Note Subjective: Subjective Patient without complaints on RA Vital Signs: Vital Signs Vital Signs Date Time Temp Pulse Resp B/P (MAP) Pulse Ox O2 Delivery O2 Flow Rate FiO2 09/25/20 03:35 97.0 70 24 176/74 (108) 94 Room Air 97.0 09/24/20 20:00 2.0 Physical Exam: PHYSICAL EXAM GENERAL: Alert, awake male, comfortable, in no acute distress, on room air. HEENT: Normocephalic, atraumatic, anicteric. Oral mucosa moist. NECK: Supple, no JVD. LUNGS: Clear bilaterally. No wheezing. HEART: S1, S2, ABDOMEN: Soft, nondistended, nontender. Bowel sounds present. EXTREMITIES: No edema, no cyanosis. DERMATOLOGIC: Warm, dry. No generalized rash. NEUROLOGIC: Alert, awake, hard of hearing. Moves all four extremities, though weak. PSYCHIATRIC: Cooperative, calm. Medications: Inpatient Meds: Current Medications Medications (Trade) Dose Ordered Sig/Richi Start Time Stop Time Status Last Admin Dose Admin Acetaminophen (Tylenol) 650 mg PRN Q4HRS PRN 09/19/20 06:15 09/21/20 14:56 650 MG Acetaminophen/ Hydrocodone Bitart (Lortab 5/325) 1 tab PRN Q4HRS PRN 09/23/20 21:00 Albuterol Sulfate (Ventolin Hfa) 1 puff RTQID 09/23/20 22:00 09/24/20 20:46 1 PUFF Albuterol/ Ipratropium (Duoneb) 3 ml PRN Q4HRS PRN 09/24/20 10:15 Amiodarone HCl (Cordarone) 200 mg DAILY 09/21/20 16:00 09/24/20 08:42 200 MG Amlodipine Besylate (Norvasc) 5 mg DAILY 09/23/20 18:30 09/24/20 08:41 5 MG Ascorbic Acid (Vitamin C) 500 mg DAILY 09/24/20 09:00 09/24/20 08:41 500 MG Aspirin (Rhianna Aspirin) 325 mg DAILY 09/21/20 16:00 09/24/20 08:41 325 MG Ceftriaxone Sodium (Rocephin) 2 gm Q24H 09/23/20 14:00 09/24/20 15:09 2 GM Dextrose (Dextrose 50%-Water Syringe) 12.5 gm PRN Q15MIN PRN 09/19/20 12:00 Docusate Sodium (Colace) 100 mg PRN DAILY PRN 09/19/20 12:00 Enoxaparin Sodium (Lovenox 30mg Syringe) 30 mg Q24H 09/19/20 12:30 09/20/20 07:55 DC 09/19/20 12:33 30 MG Enoxaparin Sodium (Lovenox 40mg Syringe) 40 mg Q24H 09/20/20 12:00 09/24/20 12:02 40 MG Guaifenesin (Robitussin) 200 mg PRN Q4HRS PRN 09/19/20 06:15 Info (CONTRAST GIVEN -- Rx MONITORING) 1 each PRN DAILY PRN 09/18/20 22:45 09/20/20 22:44 DC Info (Icu Electrolyte Protocol) 1 ea CONT PRN PRN 09/20/20 12:45 Iohexol (Omnipaque 300 Mg/ml) 60 ml 1X ONCE 09/18/20 22:45 09/18/20 22:46 DC 09/18/20 23:15 60 ML Lactobacillus Rhamnosus (Culturelle) 1 cap BID 09/20/20 21:00 09/24/20 20:41 1 CAP Lisinopril (Prinivil) 40 mg DAILY 09/22/20 13:30 09/24/20 08:42 40 MG Lorazepam (Ativan Inj) 1 mg 1X ONCE 09/18/20 22:30 09/18/20 22:35 DC 09/18/20 22:29 1 MG Magnesium Sulfate 100 ml @ 50 mls/hr DAILY 09/21/20 09:00 09/24/20 08:59 UNV Morphine Sulfate (Morphine Sulfate) 4 mg 1X ONCE 09/18/20 22:00 09/18/20 22:01 DC 09/18/20 22:10 4 MG Multivitamins (Thera M Plus) 1 tab DAILY 09/24/20 09:00 09/24/20 08:41 1 TAB Norepinephrine Bitartrate 8 mg/ Dextrose 258 ml @ 15.674 mls/ hr CONT PRN 09/19/20 19:45 09/23/20 20:44 DC 09/19/20 23:40 15.674 MLS/HR Olanzapine (ZyPREXA ZYDIS) 5 mg PRN BID PRN 09/19/20 06:15 09/19/20 15:15 5 MG Ondansetron HCl (Zofran) 4 mg PRN Q6HRS PRN 09/19/20 12:00 Pantoprazole Sodium (PROTONIX VIAL for IV PUSH) 40 mg DAILYAC 09/19/20 12:00 09/24/20 08:39 40 MG Piperacillin Sod/ Tazobactam Sod (Zosyn Per Pharmacy) 1 each PRN DAILY PRN 09/19/20 06:15 Cancel Piperacillin Sod/ Tazobactam Sod 3.375 gm/Sodium Chloride 50 ml @ 100 mls/hr ONCE ONCE 09/19/20 07:30 09/19/20 07:59 DC 09/19/20 07:45 100 MLS/HR Potassium Chloride/Water 100 ml @ 100 mls/hr Q1HR 09/20/20 13:00 09/20/20 18:59 UNV Potassium Chloride (Klor-Con) 40 meq Q2H 09/20/20 12:30 09/20/20 16:31 UNV Potassium Phos/ Sodium Phos (Phos-Nak) 1 pkt BID 09/20/20 21:00 09/21/20 09:01 UNV Psyllium Hydrophilic Mucilloid (Metamucil Fiber Packet) 1 pkt QHS 09/19/20 21:00 09/24/20 20:41 1 PKT Sennosides (Senna) 17.2 mg PRN BID PRN 09/19/20 12:00 Simvastatin (Zocor) 20 mg QHS 09/21/20 21:00 09/24/20 20:41 20 MG Sodium Chloride 1,000 ml @ 50 mls/hr Q20H 09/19/20 12:00 09/24/20 20:57 50 MLS/HR Sodium Phosphate 20 mmol/Sodium Chloride 256.6667 ml @ 62.5 mls/hr 1X ONCE 09/20/20 12:30 09/20/20 16:36 UNV Vancomycin HCl (Vancomycin Oral Solution) 125 mg BID 09/22/20 09:00 UNV Vitamin A/Vitamin D (Vitamin A & D Ointment) 1 kortney PRN Q1HR PRN 09/21/20 11:15 09/21/20 16:58 1 KORTNEY Objective: Assessment: 1. Sepsis from gram-negative bacteremia. 2. Proteus mirabilis bacteremia source appears genitourinary. 3. Urinary tract infection with chronic indwelling Hanna, status post exchange in ED.UC contaminant, 4. Leukocytosis.improving 5. Fever. resolved 6. Bilateral hydronephrosis with distended bladder.no hydronephrosis on ultrasound 7. BPH. 8. Chronic indwelling Hanna. 9. A 1.8 cm right adrenal gland nodule. 10. Sclerotic lesion at the right symphysis pubis on CT. 11. Hard of hearing. 12. Protein-calorie malnutrition. 13. H/O COVID 19 3 weeks ago; Covid positive here again 14 Increaed troponin, likely demand ischemia 15. . PAFIB 16. Hypertension , Hyperlipidemia 17. Anemia on amiodarone Plan: Plan of Care Continue ceftriaxone Hanna has been exchanged repeat urine cultures not available continue supportive care. h/o Covid 3 weeks ago, repeat remains positive here, respiratory status stable D/W ROBBIE CABALLERO MD Sep 25, 2020 08:49
[2020-09-25] MEDS: ALBUTEROL SULFATE 8GM INHALER. INH SCH ×4 (09:33→20:00)
[2020-09-25] MEDS: PANTOPRAZOLE IV PUSH 40 MG VIAL. IVP SCH (09:33)
[2020-09-25] MEDS: LACTOBACILLUS RHAMNOSUS GG 1 CAPSULE. PO SCH ×2 (09:33→21:09)
[2020-09-25] MEDS: MULTIVITAMIN with MINERAL TABLET. PO SCH (09:34)
[2020-09-25] MEDS: LISINOPRIL 20 MG TABLET PO SCH (09:34)
[2020-09-25] MEDS: ASPIRIN 325 MG TABLET PO SCH (09:34)
[2020-09-25] MEDS: AMIODARONE HCL 200 MG TABLET. PO SCH (09:34)
[2020-09-25] MEDS: ASCORBIC ACID 500 MG TABLET PO SCH (09:35)
--- NOTE | 2020-09-25 10:52 | PDOC ---
PULMONARY PROGRESS NOTES DATE: 09/25/20 TIME: 10:51 Subjective pt. remains on room air No soa or cough no overnight concerns Vitals Vital Signs Date Time Temp Pulse Resp B/P (MAP) Pulse Ox O2 Delivery O2 Flow Rate FiO2 09/25/20 09:35 76 170/72 09/25/20 07:00 97.2 24 96 Room Air 97.2 09/24/20 20:00 2.0 ROS: No Nausea, No Chest Pain, No Abdominal Pain, No Increase Cough General: Alert, Oriented X4 Lungs: Clear Cardiovascular: S1 Abdomen: Soft Neuro Exam: Alert Extremities: No Edema Skin: Warm Labs Laboratory Tests Test 09/23/20 15:48 09/24/20 04:30 Sodium Level 142 mmol/L (136-145) Potassium Level 3.1 mmol/L (3.5-5.1) Chloride Level 110 mmol/L (98-107) Carbon Dioxide Level 24 mmol/L (21-32) Anion Gap 8 (6-14) Blood Urea Nitrogen 20 mg/dL (8-26) Creatinine 0.8 mg/dL (0.7-1.3) Estimated GFR (Cockcroft-Gault) 91.4 Glucose Level 92 mg/dL (70-99) Calcium Level 7.9 mg/dL (8.5-10.1) Phosphorus Level 2.2 mg/dL (2.6-4.7) Magnesium Level 1.7 mg/dL (1.8-2.4) White Blood Count 12.8 x10^3/uL (4.0-11.0) Red Blood Count 3.81 x10^6/uL (4.30-5.70) Hemoglobin 10.9 g/dL (13.0-17.5) Hematocrit 33.7 % (39.0-53.0) Mean Corpuscular Volume 89 fL (79-100) Mean Corpuscular Hemoglobin 29 pg (25-35) Mean Corpuscular Hemoglobin Concent 32 g/dL (31-37) Red Cell Distribution Width 16.3 % (11.5-14.5) Platelet Count 192 x10^3/uL (140-400) Neutrophils (%) (Auto) 78 % (31-73) Lymphocytes (%) (Auto) 10 % (24-48) Monocytes (%) (Auto) 6 % (0-9) Eosinophils (%) (Auto) 6 % (0-3) Basophils (%) (Auto) 1 % (0-3) Neutrophils # (Auto) 10.0 x10^3/uL (1.8-7.7) Lymphocytes # (Auto) 1.2 x10^3/uL (1.0-4.8) Monocytes # (Auto) 0.8 x10^3/uL (0.0-1.1) Eosinophils # (Auto) 0.8 x10^3/uL (0.0-0.7) Basophils # (Auto) 0.1 x10^3/uL (0.0-0.2) Medications Active Scripts Medications Dose Route/Sig Max Daily Dose Days Date Category Dose Instructions Klor-Con M20 (Potassium Chloride) 20 Meq Tab.er.prt 20 Meq PO DAILY 09/19/20 Reported Ondansetron Hcl 4 Mg Tablet 8 Mg PO PRN Q8HRS PRN 09/19/20 Reported Milk Of Magnesia (Magnesium Hydroxide) 400 Mg/5 Ml Oral.susp 400 Mg PO PRN DAILY PRN 09/19/20 Reported Bisacodyl 10 Mg Supp.rect 10 Mg RC PRN DAILY PRN 09/19/20 Reported Artificial Tears Eye Drops (Dextran 70/Hypromellose) 15 Ml Drops 1 Drop EACHEYE PRN QID PRN 09/19/20 Reported A and D Ointment (Vits A and D/White Pet/Lanolin) 42.5 Gm Oint...g. 42.5 Gm TP BID 09/19/20 Reported Flomax (Tamsulosin Hcl) 0.4 Mg Cap.er.24h 1 Cap PO DAILY 06/10/20 Reported Famotidine 20 Mg Tablet 20 Mg PO BID 06/10/20 Reported Miralax (Polyethylene Glycol 3350) 17 Gm Powd.pack 1 Packet PO DAILY PRN 2 06/10/20 Reported dissolve in water Lisinopril 40 Mg Tablet 1 Tab PO DAILY 06/10/20 Reported Flonase Allergy Relief (Fluticasone Propionate) 9.9 Ml [place].susp 1 Sprays NS DAILY PRN 06/10/20 Reported Finasteride 5 Mg Tablet 1 Tab PO DAILY 06/10/20 Reported Ferrous Sulfate 325 Mg Tablet 1 Tab PO DAILY 06/10/20 Reported Tylenol (Acetaminophen) 325 Mg Tablet 500 Mg PO PRN Q6HRS PRN 11/11/15 Reported Centrum Complete Multivit Tab (Multivitamin/Iron/Folic Acid) 1 Each Tablet 1 Each PO DAILY 11/11/15 Reported Aspirin 325 Mg Tablet 1 Tab PO DAILY 11/11/15 Reported Docusate Sodium 100 Mg Capsule 100 Mg PO TID 11/11/15 Reported Hydrochlorothiazide Tablet (Hydrochlorothiazide) 25 Mg Tablet 1 Tab PO DAILY 11/11/15 Reported Amiodarone Hcl 200 Mg Tablet 1 Tab PO DAILY 11/11/15 Reported Simvastatin 20 Mg Tablet 1 Tab PO QHS 11/11/15 Reported Comments CXR IMPRESSION: 1. Bilateral perihilar opacities, likely edema or multifocal infection. 2. Small left pleural effusion. Impression . IMPRESSION: 1. Abnormal chest x-ray compatible with possible pulmonary edema or pneumonia, 2. Gram-negative bacteremia. 3. Proteus mirabilis bacteremia, source appears to be genitourinary tract. 4. Chronic indwelling Hanna catheter. 5. Leukocytosis. 6. Fever, resolved. 7. Bilateral hydronephrosis with distended bladder seen on ultrasound. 8. Chronic renal insufficiency. 9. History of COVID-19 two weeks ago. Repeat test positive doubt that this is causing any respiratory distress Plan . Suspect SARS Covid 2+ from previous infection. Not concerning for new infection. Patient on room air Follow ID recs in regards to ABX Follow cardiology recs-- diuresis PT/OT DVT/GI PPX D/W RN Pt. is a DNR we will see prn, please call with any questions or concerns thank you YAMIL LUCIANO MD Sep 25, 2020 10:52
--- NOTE | 2020-09-25 12:02 | PDOC ---
[facility] PROGRESS NOTE Date of Service DOS: DATE: 09/25/20 TIME: 12:01 Chief Complaint Chief Complaint Sepsis due to UTI and COVID-19 infection gram neg bacteremia Hemodynamic instability Acute UTI secondary to bladder outlet obstruction No hydronephrosis. 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 cxr 09-21 plan Continue medical management Exchange Hanna catheter and flushed appropriately empiric IV antibiotics blood and urine cultures Judicious IV fluids Continue Levophed for vasopressor support map goal of 65 Strict I's and O's A.m. cortisol level and TSH Repeat troponin Heparin for DVT prophylaxis Protonix GI prophylaxis ADA diet Full code Discussed with RN and SW glenn qid cardiology consult covid pcr BLADDER SCAN PROTOCOL BY US No hydronephrosis. ID CONSULT, REPEAT BLOOD CULT 09-20 Disposition inpatient management as above Surrogate decision maker is the daughter LOOD CULTURE Final GRAM NEGATIVE RODS, IN 2 OF 4 BOTTLES, TWO SETS DRAWN. ONE SET IS POSITIVE. CONSIDER UROLOGY REFERRAL but No hydronephrosis. 09-23 MORE ALERT, SOME EXP WHEEZES to cvc bed later today , cxr glenn PT/OT DVT/GI PPX D/W RN Pt. is a DNR 34 minutes of critical care time was spent in reviewing chart, labs, and images. Discussed with RN and MILAD. History of Present Illness History of Present Illness 09/25/2020 No acute events overnight. Patient remains afebrile. Saturating 94% on room air. Patient's chart, labs, images were reviewed and discussed with RN 09/24/2020 No acute events overnight. Patient saturating 93% on room air. Continues to be confused which may be his baseline status. Patient's chart, labs, images were reviewed and discussed with RN History of Present Illness: HPI: 85 year old male with past medical history of atrial fibrillation, GERD, dyslipidemia, hypertension who arrives via EMS with a chief complaint of abdominal pain and back pain. Pain began about 4 PM DAY OF ADMIT . Patient describes 10 out of 10 abdominal pain worse on the left side as well as lumbar back pain that is not as severe. Patient is extremely hard of hearing therefore history, physical review of systems are extremely difficult to obtain due to his inability to hear and answer questions. Patient daughter states that patient does have a Hanna that is indwelling and she is unsure when it was exchanged or flushed. 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,BACK SURG,CARPAL TUNNEL Allergies: Allergies: Coded Allergies: No Known Drug Allergies (Unverified , 08/29/13) Family History: Family History: Reviewed with no relevant findings Social History: Social History: Smoking Status: Never Smoker Alcohol Use: None Drug Use: None Vitals/I&O Vitals/I&O: Vital Signs Date Time Temp Pulse Resp B/P (MAP) Pulse Ox O2 Delivery O2 Flow Rate FiO2 09/25/20 09:35 76 170/72 09/25/20 07:00 97.2 24 96 Room Air 97.2 09/24/20 20:00 2.0 I & O 09/24/20 09/24/20 09/25/20 15:00 23:00 07:00 Intake Total 50 ml 120 ml Output Total 1650 ml 900 ml Balance -1650 ml 50 ml -780 ml Physical Exam Physical Exam: GENERAL: Alert, awake male, comfortable, in no acute distress, on room air. HEENT: Normocephalic, atraumatic, anicteric. Oral mucosa moist. NECK: Supple, no JVD. LUNGS: Clear bilaterally. No wheezing. HEART: S1, S2, ABDOMEN: Soft, nondistended, nontender. Bowel sounds present. EXTREMITIES: No edema, no cyanosis. DERMATOLOGIC: Warm, dry. No generalized rash. NEUROLOGIC: Alert, awake, hard of hearing. Moves all four extremities, though weak. PSYCHIATRIC: Cooperative, calm. General: Alert, Oriented X3, Cooperative, No acute distress Heart: Regular rate, Other (distant heart tones ) Lungs: Clear Abdomen: Normal bowel sounds, Soft Extremities: No edema Skin: No significant lesion Assessment and Plan Assessmemt and Plan Problems Medical Problems: (1) Abdominal pain Status: Acute (2) Azotemia Status: Acute (3) Back pain Status: Acute (4) Bladder outlet obstruction Status: Acute (5) Pyelonephritis Status: Acute Comment Review of Relevant I have reviewed the following items gustavo (where applicable) has been applied. Justifications for Admission UTI Indications Is NPO status required?: Yes Justification for admission: Patient may require to be NPO for greater 24hours making it medically necessary to manage patient as inpatient. Altered Mental Status?: Yes Justification for admission: There is concern for patient's severe or persistent Altered Mental Status as indicated by patient's confusional state or lethargy making it medically necessary to manage this patient in the inpatient setting. Worse Clinical Findings?: Yes Justification for admission: Patient's worsening clinical findings as indicated (by a fever of & pain of) despite outpatient/observation treatment makes it imperative that patient is managed as an inpatient. Other Justification Acute renal failure MAGALY DAVIS MD Sep 25, 2020 12:02
[2020-09-25] MEDS: ENOXAPARIN 40 MG/0.4 ML SYRINGE. SQ SCH (12:29)
[2020-09-25] MEDS: HYDROcodone/APAP 5/325MG 1 TAB TABLET PO PRN (13:36)
[2020-09-25] MEDS: cefTRIAXone IV Push 2 GM VIAL. IVP SCH (13:37)
[2020-09-25] MEDS: SIMVASTATIN 20 MG TABLET PO SCH (21:09)
[2020-09-25] MEDS: IV NORMAL SALINE 1000ML BAG 1,000 ML IV SCH (21:09)
[2020-09-25] MEDS: PSYLLIUM HUSK (SUGAR FREE) 1 PKT PACKET PO SCH (21:09)
[2020-09-26 03:00] VITALS: BP 159/71
[2020-09-26 07:00] VITALS: BP 154/72
--- NOTE | 2020-09-26 08:15 | PDOC ---
Infectious Disease Note Subjective: Subjective Patient without complaints on RA Vital Signs: Vital Signs Vital Signs Date Time Temp Pulse Resp B/P (MAP) Pulse Ox O2 Delivery O2 Flow Rate FiO2 09/26/20 03:00 97.0 70 159/71 (100) 96 Room Air 2.0 97.0 09/25/20 21:59 Physical Exam: PHYSICAL EXAM GENERAL: Alert, awake male, comfortable, in no acute distress, on room air. HEENT: Normocephalic, atraumatic, anicteric. Oral mucosa moist. NECK: Supple, no JVD. LUNGS: Clear bilaterally. No wheezing. HEART: S1, S2, ABDOMEN: Soft, nondistended, nontender. Bowel sounds present. EXTREMITIES: No edema, no cyanosis. DERMATOLOGIC: Warm, dry. No generalized rash. NEUROLOGIC: Alert, awake, hard of hearing. Moves all four extremities, though weak. PSYCHIATRIC: Cooperative, calm. Medications: Inpatient Meds: Current Medications Medications (Trade) Dose Ordered Sig/Richi Start Time Stop Time Status Last Admin Dose Admin Acetaminophen (Tylenol) 650 mg PRN Q4HRS PRN 09/19/20 06:15 09/21/20 14:56 650 MG Acetaminophen/ Hydrocodone Bitart (Lortab 5/325) 1 tab PRN Q4HRS PRN 09/23/20 21:00 09/25/20 13:36 1 TAB Albuterol Sulfate (Ventolin Hfa) 1 puff RTQID 09/23/20 22:00 09/25/20 16:47 1 PUFF Albuterol/ Ipratropium (Duoneb) 3 ml PRN Q4HRS PRN 09/24/20 10:15 Amiodarone HCl (Cordarone) 200 mg DAILY 09/21/20 16:00 09/25/20 09:34 200 MG Amlodipine Besylate (Norvasc) 5 mg DAILY 09/23/20 18:30 09/25/20 09:35 5 MG Ascorbic Acid (Vitamin C) 500 mg DAILY 09/24/20 09:00 09/25/20 09:35 500 MG Aspirin (Rhianna Aspirin) 325 mg DAILY 09/21/20 16:00 09/25/20 09:34 325 MG Ceftriaxone Sodium (Rocephin) 2 gm Q24H 09/23/20 14:00 09/25/20 13:37 2 GM Dextrose (Dextrose 50%-Water Syringe) 12.5 gm PRN Q15MIN PRN 09/19/20 12:00 Docusate Sodium (Colace) 100 mg PRN DAILY PRN 09/19/20 12:00 Enoxaparin Sodium (Lovenox 30mg Syringe) 30 mg Q24H 09/19/20 12:30 09/20/20 07:55 DC 09/19/20 12:33 30 MG Enoxaparin Sodium (Lovenox 40mg Syringe) 40 mg Q24H 09/20/20 12:00 09/25/20 12:29 40 MG Guaifenesin (Robitussin) 200 mg PRN Q4HRS PRN 09/19/20 06:15 Info (CONTRAST GIVEN -- Rx MONITORING) 1 each PRN DAILY PRN 09/18/20 22:45 09/20/20 22:44 DC Info (Icu Electrolyte Protocol) 1 ea CONT PRN PRN 09/20/20 12:45 Iohexol (Omnipaque 300 Mg/ml) 60 ml 1X ONCE 09/18/20 22:45 09/18/20 22:46 DC 09/18/20 23:15 60 ML Lactobacillus Rhamnosus (Culturelle) 1 cap BID 09/20/20 21:00 09/25/20 21:09 1 CAP Lisinopril (Prinivil) 40 mg DAILY 09/22/20 13:30 09/25/20 09:34 40 MG Lorazepam (Ativan Inj) 1 mg 1X ONCE 09/18/20 22:30 09/18/20 22:35 DC 09/18/20 22:29 1 MG Magnesium Sulfate 100 ml @ 50 mls/hr DAILY 09/21/20 09:00 09/24/20 08:59 UNV Morphine Sulfate (Morphine Sulfate) 4 mg 1X ONCE 09/18/20 22:00 09/18/20 22:01 DC 09/18/20 22:10 4 MG Multivitamins (Thera M Plus) 1 tab DAILY 09/24/20 09:00 09/25/20 09:34 1 TAB Norepinephrine Bitartrate 8 mg/ Dextrose 258 ml @ 15.674 mls/ hr CONT PRN 09/19/20 19:45 09/23/20 20:44 DC 09/19/20 23:40 15.674 MLS/HR Olanzapine (ZyPREXA ZYDIS) 5 mg PRN BID PRN 09/19/20 06:15 09/19/20 15:15 5 MG Ondansetron HCl (Zofran) 4 mg PRN Q6HRS PRN 09/19/20 12:00 Pantoprazole Sodium (PROTONIX VIAL for IV PUSH) 40 mg DAILYAC 09/19/20 12:00 09/25/20 09:33 40 MG Piperacillin Sod/ Tazobactam Sod (Zosyn Per Pharmacy) 1 each PRN DAILY PRN 09/19/20 06:15 Cancel Piperacillin Sod/ Tazobactam Sod 3.375 gm/Sodium Chloride 50 ml @ 100 mls/hr ONCE ONCE 09/19/20 07:30 09/19/20 07:59 DC 09/19/20 07:45 100 MLS/HR Potassium Chloride/Water 100 ml @ 100 mls/hr Q1HR 09/20/20 13:00 09/20/20 18:59 UNV Potassium Chloride (Klor-Con) 40 meq Q2H 09/20/20 12:30 09/20/20 16:31 UNV Potassium Phos/ Sodium Phos (Phos-Nak) 1 pkt BID 09/20/20 21:00 09/21/20 09:01 UNV Psyllium Hydrophilic Mucilloid (Metamucil Fiber Packet) 1 pkt QHS 09/19/20 21:00 09/25/20 21:09 1 PKT Sennosides (Senna) 17.2 mg PRN BID PRN 09/19/20 12:00 Simvastatin (Zocor) 20 mg QHS 09/21/20 21:00 09/25/20 21:09 20 MG Sodium Chloride 1,000 ml @ 50 mls/hr Q20H 09/19/20 12:00 09/25/20 21:09 50 MLS/HR Sodium Phosphate 20 mmol/Sodium Chloride 256.6667 ml @ 62.5 mls/hr 1X ONCE 09/20/20 12:30 09/20/20 16:36 UNV Vancomycin HCl (Vancomycin Oral Solution) 125 mg BID 09/22/20 09:00 UNV Vitamin A/Vitamin D (Vitamin A & D Ointment) 1 kortney PRN Q1HR PRN 09/21/20 11:15 09/21/20 16:58 1 KORTNEY Objective: Assessment: 1. Sepsis from gram-negative bacteremia. 2. Proteus mirabilis bacteremia source appears genitourinary. 3. Urinary tract infection with chronic indwelling Hanna, status post exchange in ED.UC contaminant, 4. Leukocytosis.improving 5. Fever. resolved 6. Bilateral hydronephrosis with distended bladder.no hydronephrosis on ultrasound 7. BPH. 8. Chronic indwelling Hanna. 9. A 1.8 cm right adrenal gland nodule. 10. Sclerotic lesion at the right symphysis pubis on CT. 11. Hard of hearing. 12. Protein-calorie malnutrition. 13. H/O COVID 19 3 weeks ago; Covid positive here again 14 Increaed troponin, likely demand ischemia 15. . PAFIB 16. Hypertension , Hyperlipidemia 17. Anemia on amiodarone Plan: Plan of Care Continue ceftriaxone We will de-escalate to oral soon Hanna has been exchanged repeat urine cultures not available continue supportive care. h/o Covid 3 weeks ago, repeat remains positive here, respiratory status stable D/W ROBBIE CABALLERO MD Sep 26, 2020 08:15
[2020-09-26] MEDS: AMIODARONE HCL 200 MG TABLET. PO SCH (09:00)
[2020-09-26] MEDS: ALBUTEROL SULFATE 8GM INHALER. INH SCH ×4 (09:27→20:14)
[2020-09-26] MEDS: PANTOPRAZOLE IV PUSH 40 MG VIAL. IVP SCH (09:27)
[2020-09-26] MEDS: ASPIRIN 325 MG TABLET PO SCH (09:31)
[2020-09-26] MEDS: HYDROcodone/APAP 5/325MG 1 TAB TABLET PO PRN ×4 (09:31→23:50)
[2020-09-26] MEDS: ASCORBIC ACID 500 MG TABLET PO SCH (09:31)
[2020-09-26] MEDS: LACTOBACILLUS RHAMNOSUS GG 1 CAPSULE. PO SCH ×2 (09:32→20:14)
[2020-09-26] MEDS: MULTIVITAMIN with MINERAL TABLET. PO SCH (09:32)
[2020-09-26] MEDS: LISINOPRIL 20 MG TABLET PO SCH (09:32)
--- NOTE | 2020-09-26 10:44 | PDOC ---
[facility] PROGRESS NOTE Date of Service DOS: DATE: 09/26/20 TIME: 10:43 Chief Complaint Chief Complaint Sepsis due to UTI and COVID-19 infection gram neg bacteremia Hemodynamic instability Acute UTI secondary to bladder outlet obstruction No hydronephrosis. 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 cxr 09-21 plan Continue medical management Exchange Hanna catheter and flushed appropriately empiric IV antibiotics blood and urine cultures Judicious IV fluids Continue Levophed for vasopressor support map goal of 65 Strict I's and O's A.m. cortisol level and TSH Repeat troponin Heparin for DVT prophylaxis Protonix GI prophylaxis ADA diet Full code Discussed with RN and SW glenn qid cardiology consult covid pcr BLADDER SCAN PROTOCOL BY US No hydronephrosis. ID CONSULT, REPEAT BLOOD CULT 09-20 Disposition inpatient management as above Surrogate decision maker is the daughter LOOD CULTURE Final GRAM NEGATIVE RODS, IN 2 OF 4 BOTTLES, TWO SETS DRAWN. ONE SET IS POSITIVE. CONSIDER UROLOGY REFERRAL but No hydronephrosis. 09-23 MORE ALERT, SOME EXP WHEEZES to cvc bed later today , cxr glenn PT/OT DVT/GI PPX D/W RN Pt. is a DNR 34 minutes of critical care time was spent in reviewing chart, labs, and images. Discussed with RN and SW. History of Present Illness History of Present Illness 09/26/2020 No acute events overnight. Remains afebrile. Saturating 96% on room air. Patient's chart, labs, images were reviewed and discussed with RN 09/25/2020 No acute events overnight. Patient remains afebrile. Saturating 94% on room air. Patient's chart, labs, images were reviewed and discussed with RN 09/24/2020 No acute events overnight. Patient saturating 93% on room air. Continues to be confused which may be his baseline status. Patient's chart, labs, images were reviewed and discussed with RN History of Present Illness: HPI: 85 year old male with past medical history of atrial fibrillation, GERD, dyslipidemia, hypertension who arrives via EMS with a chief complaint of abdominal pain and back pain. Pain began about 4 PM DAY OF ADMIT . Patient describes 10 out of 10 abdominal pain worse on the left side as well as lumbar back pain that is not as severe. Patient is extremely hard of hearing therefore history, physical review of systems are extremely difficult to obtain due to his inability to hear and answer questions. Patient daughter states that patient does have a Hanna that is indwelling and she is unsure when it was exchanged or flushed. 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,BACK SURG,CARPAL TUNNEL Allergies: Allergies: Coded Allergies: No Known Drug Allergies (Unverified , 08/29/13) Family History: Family History: Reviewed with no relevant findings Social History: Social History: Smoking Status: Never Smoker Alcohol Use: None Drug Use: None Vitals/I&O Vitals/I&O: Vital Signs Date Time Temp Pulse Resp B/P (MAP) Pulse Ox O2 Delivery O2 Flow Rate FiO2 09/26/20 09:33 76 154/72 09/26/20 09:31 18 Room Air 09/26/20 07:00 97.8 96 97.8 09/26/20 03:00 2.0 I & O 09/25/20 09/25/20 09/26/20 15:00 23:00 07:00 Intake Total 100 ml Output Total 950 ml 600 ml Balance -950 ml -500 ml Physical Exam Physical Exam: GENERAL: Alert, awake male, comfortable, in no acute distress, on room air. HEENT: Normocephalic, atraumatic, anicteric. Oral mucosa moist. NECK: Supple, no JVD. LUNGS: Clear bilaterally. No wheezing. HEART: S1, S2, ABDOMEN: Soft, nondistended, nontender. Bowel sounds present. EXTREMITIES: No edema, no cyanosis. DERMATOLOGIC: Warm, dry. No generalized rash. NEUROLOGIC: Alert, awake, hard of hearing. Moves all four extremities, though weak. PSYCHIATRIC: Cooperative, calm. General: Alert, Oriented X3, Cooperative, No acute distress Heart: Regular rate, Other (distant heart tones ) Lungs: Clear Abdomen: Normal bowel sounds, Soft Extremities: No edema Skin: No significant lesion Assessment and Plan Assessmemt and Plan Problems Medical Problems: (1) Abdominal pain Status: Acute (2) Azotemia Status: Acute (3) Back pain Status: Acute (4) Bladder outlet obstruction Status: Acute (5) Pyelonephritis Status: Acute Comment Review of Relevant I have reviewed the following items gustavo (where applicable) has been applied. Justifications for Admission UTI Indications Is NPO status required?: Yes Justification for admission: Patient may require to be NPO for greater 24hours making it medically necessary to manage patient as inpatient. Altered Mental Status?: Yes Justification for admission: There is concern for patient's severe or persistent Altered Mental Status as indicated by patient's confusional state or lethargy making it medically necessary to manage this patient in the inpatient setting. Worse Clinical Findings?: Yes Justification for admission: Patient's worsening clinical findings as indicated (by a fever of & pain of) despite outpatient/observation treatment makes it imperative that patient is managed as an inpatient. Other Justification Acute renal failure MAGALY DAVIS MD Sep 26, 2020 10:44
[2020-09-26 11:00] VITALS: BP 147/67
[2020-09-26 11:18] LABS: BASO % 0 % (0-3); EOS # 0.3 x10^3/uL (0.0-0.7); EOS % 3 % (0-3); HEMATOCRIT 32.5 % (39.0-53.0); HEMOGLOBIN 10.6 g/dL (13.0-17.5); LYMPH % 8 % (24-48); MEAN CORPUSCULAR HEMOGLOBIN 29 pg (25-35); MEAN CORPUSCULAR HGB CONC 33 g/dL (31-37); MEAN CORPUSCULAR VOLUME 89 fL (79-100); MONO # 1.1 x10^3/uL (0.0-1.1); MONO % 10 % (0-9); NEUT # 9.6 x10^3/uL (1.8-7.7); NEUT % 79 % (31-73); PLATELET COUNT 213 x10^3/uL (140-400); RED BLOOD COUNT 3.68 x10^6/uL (4.30-5.70); RED CELL DISTRIBUTION WIDTH 16.5 % (11.5-14.5)
[2020-09-26 11:32] LABS: CALCIUM 7.8 mg/dL (8.5-10.1); CREATININE 0.7 mg/dL (0.7-1.3); GFR 106.7; MAGNESIUM 1.7 mg/dL (1.8-2.4); POTASSIUM 3.2 mmol/L (3.5-5.1)
[2020-09-26] MEDS ORDERED: MAGNESIUM OXIDE 400 MG TABLET PO ONE (13:00)
[2020-09-26] MEDS ORDERED: POTASSIUM CHLORIDE 20 MEQ TABLET.ER. PO ONE ×2 (13:00→17:00)
[2020-09-26] MEDS: ENOXAPARIN 40 MG/0.4 ML SYRINGE. SQ SCH (13:31)
[2020-09-26] MEDS: cefTRIAXone IV Push 2 GM VIAL. IVP SCH (13:31)
[2020-09-26 15:00] VITALS: BP 133/64
[2020-09-26 19:00] VITALS: BP 170/95
[2020-09-26] MEDS: PSYLLIUM HUSK (SUGAR FREE) 1 PKT PACKET PO SCH (20:14)
[2020-09-26] MEDS: SIMVASTATIN 20 MG TABLET PO SCH (20:14)
[2020-09-26] MEDS: IV NORMAL SALINE 1000ML BAG 1,000 ML IV SCH (20:14)
[2020-09-26] MEDS: ACETAMINOPHEN 325 MG TABLET. PO PRN (20:18)
[2020-09-26 23:00] VITALS: BP 151/76
[2020-09-27] MEDS: PANTOPRAZOLE IV PUSH 40 MG VIAL. IVP SCH (07:32)
[2020-09-27] MEDS: ALBUTEROL SULFATE 8GM INHALER. INH SCH ×4 (07:32→22:39)
[2020-09-27 07:54] VITALS: BP 138/63
[2020-09-27] MEDS: ASCORBIC ACID 500 MG TABLET PO SCH (09:11)
[2020-09-27] MEDS: ASPIRIN 325 MG TABLET PO SCH (09:11)
[2020-09-27] MEDS: LACTOBACILLUS RHAMNOSUS GG 1 CAPSULE. PO SCH ×2 (09:11→22:30)
[2020-09-27] MEDS: MULTIVITAMIN with MINERAL TABLET. PO SCH (09:11)
[2020-09-27] MEDS: LISINOPRIL 20 MG TABLET PO SCH (09:12)
[2020-09-27] MEDS: AMIODARONE HCL 200 MG TABLET. PO SCH (09:12)
[2020-09-27] MEDS: ENOXAPARIN 40 MG/0.4 ML SYRINGE. SQ SCH (11:11)
--- NOTE | 2020-09-27 11:51 | PDOC ---
Infectious Disease Note Subjective Subjective Patient without complaints on RA ROS ROS no n/v/d/ Vital Sign Vital Signs Vital Signs Date Time Temp Pulse Resp B/P (MAP) Pulse Ox O2 Delivery O2 Flow Rate FiO2 09/27/20 09:12 64 138/63 09/27/20 07:54 20 95 Room Air 09/26/20 23:00 98.9 2.0 98.9 Physical Exam PHYSICAL EXAM GENERAL: Alert, awake male, comfortable, in no acute distress, on room air. HEENT: Normocephalic, atraumatic, anicteric. Oral mucosa moist. NECK: Supple, no JVD. LUNGS: Clear bilaterally. No wheezing. HEART: S1, S2, ABDOMEN: Soft, nondistended, nontender. Bowel sounds present. EXTREMITIES: No edema, no cyanosis. DERMATOLOGIC: Warm, dry. No generalized rash. NEUROLOGIC: Alert, awake, hard of hearing. Moves all four extremities, though weak. PSYCHIATRIC: Cooperative, calm. Labs Lab Laboratory Tests Test 09/26/20 19:57 Glucose (Fingerstick) 113 mg/dL (70-99) Micro Microbiology 09/20/20 Blood Culture - Final, Complete NO GROWTH AFTER 5 DAYS 09/19/20 Urine Culture - Final, Complete Objective Assessment 1. Sepsis from gram-negative bacteremia. 2. Proteus mirabilis bacteremia source appears genitourinary. 3. Urinary tract infection with chronic indwelling Hanna, status post exchange in ED.UC contaminant, 4. Leukocytosis.improving 5. Fever. resolved 6. Bilateral hydronephrosis with distended bladder.no hydronephrosis on ultrasound 7. BPH. 8. Chronic indwelling Hanna. 9. A 1.8 cm right adrenal gland nodule. 10. Sclerotic lesion at the right symphysis pubis on CT. 11. Hard of hearing. 12. Protein-calorie malnutrition. 13. H/O COVID 19 3 weeks ago; Covid positive here again 14 Increaed troponin, likely demand ischemia 15. . PAFIB 16. Hypertension , Hyperlipidemia 17. Anemia on amiodarone Plan Plan of Care Change ceftriaxone to po cefdinir, ok to d/c Hanna has been exchanged continue supportive care. h/o Covid 3 weeks ago, repeat remains positive here, respiratory status stable D/W ALYSON gillette to d/c MISHEL RUCKER MD Sep 27, 2020 11:51
[2020-09-27 11:59] VITALS: BP 150/67
[2020-09-27] MEDS: CEFDINIR 300 MG CAPSULE PO SCH ×2 (12:18→22:30)
--- NOTE | 2020-09-27 13:14 | PDOC ---
[facility] PROGRESS NOTE Date of Service DOS: DATE: 09/27/20 TIME: 13:13 Chief Complaint Chief Complaint A/P: Sepsis due to UTI and COVID-19 infection Gram neg bacteremia - proteus mirabilis Hemodynamic instability Acute UTI secondary to bladder outlet obstruction No hydronephrosis. 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 cxr 09-21 plan Continue medical management Exchange Hanna catheter and flushed appropriately empiric IV antibiotics blood and urine cultures Strict I's and O's Heparin for DVT prophylaxis Protonix GI prophylaxis ADA diet CODE - DNR/DNI Surrogate decision maker is the daughter LOOD CULTURE Final GRAM NEGATIVE RODS, IN 2 OF 4 BOTTLES, TWO SETS DRAWN. ONE SET IS POSITIVE. CONSIDER UROLOGY REFERRAL but No hydronephrosis. History of Present Illness History of Present Illness Mr Perdomo is an 85 year old male with past medical history of atrial fibrillation, GERD, dyslipidemia, hypertension who arrives via EMS with a chief complaint of abdominal pain and back pain. Pain began about 4 PM DAY OF ADMIT . Patient describes 10 out of 10 abdominal pain worse on the left side as well as lumbar back pain that is not as severe. Patient is extremely hard of hearing therefore history, physical review of systems are extremely difficult to obtain due to his inability to hear and answer questions. Patient daughter states that patient does have a Hanna that is indwelling and she is unsure when it was exchanged or flushed. 09/23: MORE ALERT, SOME EXP WHEEZES to cvc bed later today , cxr duonebs 09/24: No acute events overnight. Patient saturating 93% on room air. Continues to be confused which may be his baseline status. Patient's chart, labs, images were reviewed and discussed with RN 09/25: No acute events overnight. Patient remains afebrile. Saturating 94% on room air. Patient's chart, labs, images were reviewed and discussed with RN 09/26: No acute events overnight. Remains afebrile. Saturating 96% on room air. Patient's chart, labs, images were reviewed and discussed with RN Afebrile overnight. Blood culture returned positive for Proteus mirabilis pansensitive. Change to p.o. cefdinir per ID recommendations. Patient is extremely hard of hearing. Vitals/I&O Vitals/I&O: Vital Signs Date Time Temp Pulse Resp B/P (MAP) Pulse Ox O2 Delivery O2 Flow Rate FiO2 09/27/20 11:59 65 20 150/67 (94) 96 Room Air 2.0 09/26/20 23:00 98.9 98.9 I & O 09/26/20 09/26/20 09/27/20 15:00 23:00 07:00 Intake Total 200 ml 400 ml Balance 200 ml 400 ml Physical Exam Physical Exam: GENERAL: Alert, awake male, comfortable, in no acute distress, on room air. HEENT: Normocephalic, atraumatic, anicteric. Oral mucosa moist. NECK: Supple, no JVD. LUNGS: Clear bilaterally. No wheezing. HEART: S1, S2, ABDOMEN: Soft, nondistended, nontender. Bowel sounds present. EXTREMITIES: No edema, no cyanosis. DERMATOLOGIC: Warm, dry. No generalized rash. NEUROLOGIC: Alert, awake, hard of hearing. Moves all four extremities, though weak. PSYCHIATRIC: Cooperative, calm. General: Alert, Oriented X3, Cooperative, No acute distress Heart: Regular rate, Other (distant heart tones ) Lungs: Clear Abdomen: Normal bowel sounds, Soft Extremities: No edema Skin: No significant lesion Labs Labs: Laboratory Tests Test 09/26/20 19:57 Glucose (Fingerstick) 113 mg/dL (70-99) Assessment and Plan Assessmemt and Plan Problems Medical Problems: (1) Abdominal pain Status: Acute (2) Azotemia Status: Acute (3) Back pain Status: Acute (4) Bladder outlet obstruction Status: Acute (5) Pyelonephritis Status: Acute Comment Review of Relevant I have reviewed the following items gustavo (where applicable) has been applied. Medications: Current Medications Medications (Trade) Dose Ordered Sig/Richi Route PRN Reason Start Time Stop Time Status Last Admin Dose Admin Potassium Chloride (Klor-Con) 40 meq 1X ONCE PO 09/26/20 17:00 09/26/20 17:01 DC 09/26/20 17:52 Cefdinir (Omnicef) 300 mg BID PO 09/27/20 12:00 09/27/20 12:18 Justifications for Admission UTI Indications Is NPO status required?: Yes Justification for admission: Patient may require to be NPO for greater 24hours making it medically necessary to manage patient as inpatient. Altered Mental Status?: Yes Justification for admission: There is concern for patient's severe or persistent Altered Mental Status as indicated by patient's confusional state or lethargy making it medically necessary to manage this patient in the inpatient setting. Worse Clinical Findings?: Yes Justification for admission: Patient's worsening clinical findings as indicated (by a fever of & pain of) despite outpatient/observation treatment makes it imperative that patient is managed as an inpatient. Other Justification Acute renal failure JETT BABB MD Sep 27, 2020 13:14
--- NOTE | 2020-09-27 14:49 | PDOC ---
PULMONARY PROGRESS NOTES DATE: 09/27/20 TIME: 14:48 Subjective pt. remains on room air No soa or cough no overnight concerns Vitals Vital Signs Date Time Temp Pulse Resp B/P (MAP) Pulse Ox O2 Delivery O2 Flow Rate FiO2 09/27/20 11:59 65 20 150/67 (94) 96 Room Air 2.0 09/26/20 23:00 98.9 98.9 ROS: No Nausea, No Chest Pain, No Abdominal Pain, No Increase Cough General: Alert, Oriented X4 Lungs: Clear Cardiovascular: S1 Abdomen: Soft Neuro Exam: Alert Extremities: No Edema Skin: Warm Labs Laboratory Tests Test 09/26/20 11:00 09/26/20 19:57 White Blood Count 12.0 x10^3/uL (4.0-11.0) Red Blood Count 3.68 x10^6/uL (4.30-5.70) Hemoglobin 10.6 g/dL (13.0-17.5) Hematocrit 32.5 % (39.0-53.0) Mean Corpuscular Volume 89 fL (79-100) Mean Corpuscular Hemoglobin 29 pg (25-35) Mean Corpuscular Hemoglobin Concent 33 g/dL (31-37) Red Cell Distribution Width 16.5 % (11.5-14.5) Platelet Count 213 x10^3/uL (140-400) Neutrophils (%) (Auto) 79 % (31-73) Lymphocytes (%) (Auto) 8 % (24-48) Monocytes (%) (Auto) 10 % (0-9) Eosinophils (%) (Auto) 3 % (0-3) Basophils (%) (Auto) 0 % (0-3) Neutrophils # (Auto) 9.6 x10^3/uL (1.8-7.7) Lymphocytes # (Auto) 1.0 x10^3/uL (1.0-4.8) Monocytes # (Auto) 1.1 x10^3/uL (0.0-1.1) Eosinophils # (Auto) 0.3 x10^3/uL (0.0-0.7) Basophils # (Auto) 0.0 x10^3/uL (0.0-0.2) Sodium Level 140 mmol/L (136-145) Potassium Level 3.2 mmol/L (3.5-5.1) Chloride Level 106 mmol/L (98-107) Carbon Dioxide Level 23 mmol/L (21-32) Anion Gap 11 (6-14) Blood Urea Nitrogen 14 mg/dL (8-26) Creatinine 0.7 mg/dL (0.7-1.3) Estimated GFR (Cockcroft-Gault) 106.7 Glucose Level 122 mg/dL (70-99) Calcium Level 7.8 mg/dL (8.5-10.1) Phosphorus Level 2.7 mg/dL (2.6-4.7) Magnesium Level 1.7 mg/dL (1.8-2.4) Glucose (Fingerstick) 113 mg/dL (70-99) Laboratory Tests Test 09/26/20 19:57 Glucose (Fingerstick) 113 mg/dL (70-99) Medications Active Scripts Medications Dose Route/Sig Max Daily Dose Days Date Category Dose Instructions Klor-Con M20 (Potassium Chloride) 20 Meq Tab.er.prt 20 Meq PO DAILY 09/19/20 Reported Ondansetron Hcl 4 Mg Tablet 8 Mg PO PRN Q8HRS PRN 09/19/20 Reported Milk Of Magnesia (Magnesium Hydroxide) 400 Mg/5 Ml Oral.susp 400 Mg PO PRN DAILY PRN 09/19/20 Reported Bisacodyl 10 Mg Supp.rect 10 Mg RC PRN DAILY PRN 09/19/20 Reported Artificial Tears Eye Drops (Dextran 70/Hypromellose) 15 Ml Drops 1 Drop EACHEYE PRN QID PRN 09/19/20 Reported A and D Ointment (Vits A and D/White Pet/Lanolin) 42.5 Gm Oint...g. 42.5 Gm TP BID 09/19/20 Reported Flomax (Tamsulosin Hcl) 0.4 Mg Cap.er.24h 1 Cap PO DAILY 06/10/20 Reported Famotidine 20 Mg Tablet 20 Mg PO BID 06/10/20 Reported Miralax (Polyethylene Glycol 3350) 17 Gm Powd.pack 1 Packet PO DAILY PRN 2 06/10/20 Reported dissolve in water Lisinopril 40 Mg Tablet 1 Tab PO DAILY 06/10/20 Reported Flonase Allergy Relief (Fluticasone Propionate) 9.9 Ml [place].susp 1 Sprays NS DAILY PRN 06/10/20 Reported Finasteride 5 Mg Tablet 1 Tab PO DAILY 06/10/20 Reported Ferrous Sulfate 325 Mg Tablet 1 Tab PO DAILY 06/10/20 Reported Tylenol (Acetaminophen) 325 Mg Tablet 500 Mg PO PRN Q6HRS PRN 11/11/15 Reported Centrum Complete Multivit Tab (Multivitamin/Iron/Folic Acid) 1 Each Tablet 1 Each PO DAILY 11/11/15 Reported Aspirin 325 Mg Tablet 1 Tab PO DAILY 11/11/15 Reported Docusate Sodium 100 Mg Capsule 100 Mg PO TID 11/11/15 Reported Hydrochlorothiazide Tablet (Hydrochlorothiazide) 25 Mg Tablet 1 Tab PO DAILY 11/11/15 Reported Amiodarone Hcl 200 Mg Tablet 1 Tab PO DAILY 11/11/15 Reported Simvastatin 20 Mg Tablet 1 Tab PO QHS 11/11/15 Reported Comments CXR IMPRESSION: 1. Bilateral perihilar opacities, likely edema or multifocal infection. 2. Small left pleural effusion. Impression . IMPRESSION: 1. Abnormal chest x-ray compatible with possible pulmonary edema or pneumonia, 2. Gram-negative bacteremia. 3. Proteus mirabilis bacteremia, source appears to be genitourinary tract. 4. Chronic indwelling Hanna catheter. 5. Leukocytosis. 6. Fever, resolved. 7. Bilateral hydronephrosis with distended bladder seen on ultrasound. 8. Chronic renal insufficiency. 9. History of COVID-19 two weeks ago. Repeat test positive doubt that this is causing any respiratory distress Plan . Okay to discharge Suspect SARS Covid 2+ from previous infection. Not concerning for new infection. Patient on room air Follow ID recs in regards to ABX Follow cardiology recs-- diuresis PT/OT DVT/GI PPX D/W RN Pt. is a DNR YAMIL LUCIANO MD Sep 27, 2020 14:49
[2020-09-27 15:56] VITALS: BP 130/60
[2020-09-27 19:30] VITALS: BP 148/75
[2020-09-27] MEDS: SIMVASTATIN 20 MG TABLET PO SCH (22:30)
[2020-09-27] MEDS: PSYLLIUM HUSK (SUGAR FREE) 1 PKT PACKET PO SCH (22:30)
[2020-09-27] MEDS: ACETAMINOPHEN 325 MG TABLET. PO PRN (22:31)
[2020-09-27 23:15] VITALS: BP 171/71
[2020-09-28 03:47] VITALS: BP 140/63
[2020-09-28 07:00] VITALS: BP 152/70
[2020-09-28] MEDS: PANTOPRAZOLE IV PUSH 40 MG VIAL. IVP SCH (07:25)
[2020-09-28] MEDS: ALBUTEROL SULFATE 8GM INHALER. INH SCH ×3 (07:26→15:46)
[2020-09-28] MEDS: ASCORBIC ACID 500 MG TABLET PO SCH (08:55)
[2020-09-28] MEDS: CEFDINIR 300 MG CAPSULE PO SCH (08:55)
[2020-09-28] MEDS: MULTIVITAMIN with MINERAL TABLET. PO SCH (08:55)
[2020-09-28] MEDS: ASPIRIN 325 MG TABLET PO SCH (08:55)
[2020-09-28] MEDS: LACTOBACILLUS RHAMNOSUS GG 1 CAPSULE. PO SCH (08:55)
[2020-09-28] MEDS: LISINOPRIL 20 MG TABLET PO SCH (08:56)
[2020-09-28] MEDS: AMIODARONE HCL 200 MG TABLET. PO SCH (08:56)
[2020-09-28 10:00] LABS: CALCIUM 8.4 mg/dL (8.5-10.1); CREATININE 0.6 mg/dL (0.7-1.3); GFR 127.4; MAGNESIUM 1.9 mg/dL (1.8-2.4); POTASSIUM 3.5 mmol/L (3.5-5.1)
--- NOTE | 2020-09-28 10:33 | PDOC ---
Infectious Disease Note Subjective Subjective Patient without complaints on RA ROS ROS No nausea vomiting diarrhea or fever Vital Sign Vital Signs Vital Signs Date Time Temp Pulse Resp B/P (MAP) Pulse Ox O2 Delivery O2 Flow Rate FiO2 09/28/20 08:56 66 152/70 09/28/20 07:37 Room Air 09/28/20 07:00 97.5 18 95 97.5 09/27/20 15:56 2.0 Physical Exam PHYSICAL EXAM GENERAL: Alert, awake male, comfortable, in no acute distress, on room air. HEENT: Normocephalic, atraumatic, anicteric. Oral mucosa moist. NECK: Supple, no JVD. LUNGS: Clear bilaterally. No wheezing. HEART: S1, S2, ABDOMEN: Soft, nondistended, nontender. Bowel sounds present. EXTREMITIES: No edema, no cyanosis. DERMATOLOGIC: Warm, dry. No generalized rash. NEUROLOGIC: Alert, awake, hard of hearing. Moves all four extremities, though weak. PSYCHIATRIC: Cooperative, calm. Labs Lab Laboratory Tests Test 09/28/20 08:38 Sodium Level 141 mmol/L (136-145) Potassium Level 3.5 mmol/L (3.5-5.1) Chloride Level 106 mmol/L (98-107) Carbon Dioxide Level 24 mmol/L (21-32) Anion Gap 11 (6-14) Blood Urea Nitrogen 15 mg/dL (8-26) Creatinine 0.6 mg/dL (0.7-1.3) Estimated GFR (Cockcroft-Gault) 127.4 Glucose Level 90 mg/dL (70-99) Calcium Level 8.4 mg/dL (8.5-10.1) Magnesium Level 1.9 mg/dL (1.8-2.4) Micro Microbiology 09/20/20 Blood Culture - Final, Complete NO GROWTH AFTER 5 DAYS 09/19/20 Urine Culture - Final, Complete Objective Assessment 1. Sepsis from gram-negative bacteremia. 2. Proteus mirabilis bacteremia source appears genitourinary. 3. Urinary tract infection with chronic indwelling Hanna, status post exchange in ED.UC contaminant, 4. Leukocytosis.improving 5. Fever. resolved 6. Bilateral hydronephrosis with distended bladder.no hydronephrosis on ultrasound 7. BPH. 8. Chronic indwelling Hanna. 9. A 1.8 cm right adrenal gland nodule. 10. Sclerotic lesion at the right symphysis pubis on CT. 11. Hard of hearing. 12. Protein-calorie malnutrition. 13. H/O COVID 19 3 weeks ago; Covid positive here again 14 Increaed troponin, likely demand ischemia 15. . PAFIB 16. Hypertension , Hyperlipidemia 17. Anemia on amiodarone Plan Plan of Care po cefdinir, ok to d/c Hanna has been exchanged continue supportive care. h/o Covid 3 weeks ago, repeat remains positive here, respiratory status stable D/W ALYSON ok to d/c MISHEL RUCKER MD Sep 28, 2020 10:32
[2020-09-28 11:00] VITALS: BP 147/61
[2020-09-28] MEDS: ENOXAPARIN 40 MG/0.4 ML SYRINGE. SQ SCH (11:37)
[2020-09-28] MEDS ORDERED: AMLO-186 PO (11:54)
[2020-09-28] MEDS ORDERED: LACT1CAP19 PO (11:54)
[2020-09-28] MEDS ORDERED: CEFD300C PO (11:54)
--- NOTE | 2020-09-28 11:55 | SNU/HH DC ---
DISCHARGE ORDERS DISCHARGE INFORMATION: DISCHARGE DATE: Sep 28, 2020 FINAL DIAGNOSIS Problems Medical Problems: (1) Abdominal pain Status: Acute (2) Azotemia Status: Acute (3) Back pain Status: Acute (4) Bladder outlet obstruction Status: Acute (5) Pyelonephritis Status: Acute CONDITION ON DISCHARGE: Stable CODE STATUS: Code Status: DNR/DNI GROUP HOME: SNF STAY <30 DAYS: Yes POST DISCHARGE ORDERS: ACTIVITY ORDERS: Activity as tolerated WEIGHT BEARING STATUS: As tolerated DIET AFTER DISCHARGE: Regular CHECKS AFTER DISCHARGE: CHECKS AFTER DISCHARGE: Check blood press - daily, Check your Temp as needed TREATMENT/EQUIPMENT ORDERS: ADAPTIVE EQUIPMENT NEEDED: [facility] Physical Therapy For: Evalulation/Treatment Occupational Therapy For: Evaluation/Treatment DISCHARGE MEDICATIONS: Home Meds Active Scripts Amlodipine Besylate (AMLODIPINE BESYLATE) 5 Mg Tablet, 5 MG PO DAILY for HTN for 30 Days, #30 TAB Prov:JETT BABB MD 09/28/20 Lactobacillus Rhamnosus Gg (CULTURELLE) 1 Each Cap.sprink, 1 CAP PO BID for Diarrhea for 10 Days, #20 CAP Prov:JETT BABB MD 09/28/20 Cefdinir (CEFDINIR) 300 Mg Capsule, 300 MG PO BID for Gram negative bacteremia for 10 Days, #20 CAP Prov:JETT BABB MD 09/28/20 Reported Medications Ondansetron Hcl (ONDANSETRON HCL) 4 Mg Tablet, 8 MG PO PRN Q8HRS PRN for NAUSEA/VOMITING, TAB 09/19/20 Magnesium Hydroxide (MILK OF MAGNESIA) 400 Mg/5 Ml Oral.susp, 400 MG PO PRN DAILY PRN for CONSTIPATION, MISC 09/19/20 Bisacodyl (BISACODYL) 10 Mg Supp.rect, 10 MG RC PRN DAILY PRN for CONSTIPATION, SUPP.RECT 0 Refills 09/19/20 Dextran 70/Hypromellose (ARTIFICIAL TEARS EYE DROPS) 15 Ml Drops, 1 DROP EACHEYE PRN QID PRN for DRY EYE, #30 ML 0 Refills 09/19/20 Vits A and D/White Pet/Lanolin (A and D Ointment) 42.5 Gm Oint...g., 42.5 GM TP BID for sacral wound, MISC 09/19/20 Tamsulosin Hcl (FLOMAX) 0.4 Mg Cap.er.24h, 1 CAP PO DAILY for bph, #30 CAP 11 Refills 06/10/20 Famotidine (FAMOTIDINE) 20 Mg Tablet, 20 MG PO BID for heartburn, TAB 06/10/20 Polyethylene Glycol 3350 (MIRALAX) 17 Gm Powd.pack, 1 PACKET PO DAILY PRN for CONSTIPATION for 2 Days, #2 PACKET 0 Refills dissolve in water 06/10/20 Lisinopril (LISINOPRIL) 40 Mg Tablet, 1 TAB PO DAILY for htn, #30 TAB 5 Refills 06/10/20 Fluticasone Propionate (Flonase Allergy Relief) 9.9 Ml [place].susp, 1 SPRAYS NS DAILY PRN for ALLERGIES, BOTTLE 06/10/20 Finasteride (FINASTERIDE) 5 Mg Tablet, 1 TAB PO DAILY for prostate, #30 TAB 11 Refills 06/10/20 Ferrous Sulfate (FERROUS SULFATE) 325 Mg Tablet, 1 TAB PO DAILY for iron, #30 TAB 3 Refills 06/10/20 Acetaminophen (TYLENOL) 325 Mg Tablet, 500 MG PO PRN Q6HRS PRN for MILD PAIN / TEMP > 100.3'F 11/11/15 Multivitamin/Iron/Folic Acid (CENTRUM COMPLETE MULTIVIT TAB) 1 Each Tablet, 1 EACH PO DAILY 11/11/15 Aspirin (ASPIRIN) 325 Mg Tablet, 1 TAB PO DAILY, #30 TAB 5 Refills 11/11/15 Docusate Sodium (DOCUSATE SODIUM) 100 Mg Capsule, 100 MG PO TID 11/11/15 Amiodarone Hcl (AMIODARONE HCL) 200 Mg Tablet, 1 TAB PO DAILY, #90 TAB 1 Refill 11/11/15 Simvastatin (SIMVASTATIN) 20 Mg Tablet, 1 TAB PO QHS, #30 TAB 5 Refills 11/11/15 Discontinued Reported Medications Potassium Chloride (KLOR-CON M20) 20 Meq Tab.er.prt, 20 MEQ PO DAILY for supp, TAB.SR 09/19/20 Hydrochlorothiazide (HYDROCHLOROTHIAZIDE TABLET ) 25 Mg Tablet, 1 TAB PO DAILY, #30 TAB 5 Refills 11/11/15 JETT BABB MD Sep 28, 2020 11:55
--- NOTE | 2020-09-28 13:39 | PDOC3 ---
Discharge Summary Visit Information Date of Admission: Sep 19, 2020 Date of Discharge: Sep 28, 2020 Admitting Diagnosis: Sepsis Final Diagnosis Problems Medical Problems: (1) Abdominal pain Status: Acute (2) Azotemia Status: Acute (3) Back pain Status: Acute (4) Bladder outlet obstruction Status: Acute (5) Pyelonephritis Status: Acute Brief Hospital Course Allergies Allergies Coded Allergies Type Severity Reaction Last Updated Verified No Known Drug Allergies 08/29/13 No Vital Signs Vital Signs Date Time Temp Pulse Resp B/P (MAP) Pulse Ox O2 Delivery O2 Flow Rate FiO2 09/28/20 11:00 97.6 69 18 147/61 (89) 96 Room Air 97.6 09/27/20 15:56 2.0 Lab Results Laboratory Tests Test 09/26/20 19:57 09/28/20 08:38 Glucose (Fingerstick) 113 mg/dL (70-99) Sodium Level 141 mmol/L (136-145) Potassium Level 3.5 mmol/L (3.5-5.1) Chloride Level 106 mmol/L (98-107) Carbon Dioxide Level 24 mmol/L (21-32) Anion Gap 11 (6-14) Blood Urea Nitrogen 15 mg/dL (8-26) Creatinine 0.6 mg/dL (0.7-1.3) Estimated GFR (Cockcroft-Gault) 127.4 Glucose Level 90 mg/dL (70-99) Calcium Level 8.4 mg/dL (8.5-10.1) Magnesium Level 1.9 mg/dL (1.8-2.4) Laboratory Tests Test 09/28/20 08:38 Sodium Level 141 mmol/L (136-145) Potassium Level 3.5 mmol/L (3.5-5.1) Chloride Level 106 mmol/L (98-107) Carbon Dioxide Level 24 mmol/L (21-32) Anion Gap 11 (6-14) Blood Urea Nitrogen 15 mg/dL (8-26) Creatinine 0.6 mg/dL (0.7-1.3) Estimated GFR (Cockcroft-Gault) 127.4 Glucose Level 90 mg/dL (70-99) Calcium Level 8.4 mg/dL (8.5-10.1) Magnesium Level 1.9 mg/dL (1.8-2.4) Brief Hospital Course Mr Perdomo is an 85 year old male with past medical history of atrial fibrillation, GERD, dyslipidemia, hypertension who arrives via EMS with a chief complaint of abdominal pain and back pain. Pain began about 4 PM DAY OF ADMIT . Patient describes 10 out of 10 abdominal pain worse on the left side as well as lumbar back pain that is not as severe. Patient is extremely hard of hearing therefore history, physical review of systems are extremely difficult to obtain due to his inability to hear and answer questions. Patient daughter states that patient does have a Hanna that is indwelling and she is unsure when it was exchanged or flushed. 09/23: MORE ALERT, SOME EXP WHEEZES to cvc bed later today , cxr duonebs 09/24: No acute events overnight. Patient saturating 93% on room air. Continues to be confused which may be his baseline status. Patient's chart, labs, images were reviewed and discussed with RN 09/25: No acute events overnight. Patient remains afebrile. Saturating 94% on room air. Patient's chart, labs, images were reviewed and discussed with RN 09/26: No acute events overnight. Remains afebrile. Saturating 96% on room air. Patient's chart, labs, images were reviewed and discussed with RN 09/27: Afebrile overnight. Blood culture returned positive for Proteus mirabilis pansensitive. Change to p.o. cefdinir per ID recommendations. Patient is extremely hard of hearing. He is c/o some right maxillary pain, on room air. Changed to oral antibiotics. D/c to SNF today Physical Exam: Afebrile, BP 147/61 GENERAL: Alert, awake male, comfortable, in no acute distress, on room air. HEENT: Normocephalic, atraumatic, anicteric. Oral mucosa moist. NECK: Supple, no JVD. LUNGS: Clear bilaterally. No wheezing. HEART: S1, S2, ABDOMEN: Soft, nondistended, nontender. Bowel sounds present. EXTREMITIES: No edema, no cyanosis. DERMATOLOGIC: Warm, dry. No generalized rash. NEUROLOGIC: Alert, awake, hard of hearing. Moves all four extremities, though weak. PSYCHIATRIC: Cooperative, calm. General: Alert, Oriented X3, Cooperative, No acute distress Heart: Regular rate, Other (distant heart tones ) Lungs: Clear Abdomen: Normal bowel sounds, Soft Extremities: No edema Skin: No significant lesion Consults: ID Problem list: Sepsis due to UTI and COVID-19 infection Gram neg bacteremia - proteus mirabilis Hemodynamic instability Acute UTI secondary to bladder outlet obstruction No hydronephrosis. 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 cxr 09-21 Afib on amio plan Continue medical management Exchange Hanna catheter and flushed appropriately empiric IV antibiotics blood and urine cultures Strict I's and O's Heparin for DVT prophylaxis Protonix GI prophylaxis ADA diet CODE - DNR/DNI Surrogate decision maker is the daughter LOOD CULTURE Final GRAM NEGATIVE RODS, IN 2 OF 4 BOTTLES, TWO SETS DRAWN. ONE SET IS POSITIVE. CONSIDER UROLOGY REFERRAL but No hydronephrosis. Hanna has been exchanged continue supportive care. h/o Covid 3 weeks ago, repeat remains positive here, respiratory status stable Greater than 30 minutes spent on d/c to SNF Discharge Information Condition at Discharge: Improved Follow Up: Weeks (1) Disposition/Orders: D/C to Another Facility Scheduled Amiodarone Hcl (Amiodarone Hcl) 200 Mg Tablet, 1 TAB PO DAILY, #90 Ref 1 (Reported) Entered as Reported by: RAYMOND EPPS on 11/11/151622 Last Action: Continued on 09/21/20 1505 by SHERITA HAMILTON APRN Amlodipine Besylate (Amlodipine Besylate) 5 Mg Tablet, 5 MG PO DAILY for HTN for 30 Days, #30 Prescribed by: JETT BABB MD on 09/28/20 1154 Aspirin (Aspirin) 325 Mg Tablet, 1 TAB PO DAILY, #30 Ref 5 (Reported) Entered as Reported by: RAYMOND EPPS on 11/11/151622 Last Action: Continued on 09/21/20 1505 by SHERITA HAMILTON APRN Cefdinir (Cefdinir) 300 Mg Capsule, 300 MG PO BID for Gram negative bacteremia for 10 Days, #20 Prescribed by: JETT BABB MD on 09/28/20 1154 Docusate Sodium (Docusate Sodium) 100 Mg Capsule, 100 MG PO TID, (Reported) Entered as Reported by: RAYMOND EPPS on 11/11/151622 Last Action: Reviewed on 09/19/20 142 by ROSA ELENA RUTLEDGE Famotidine (Famotidine) 20 Mg Tablet, 20 MG PO BID for heartburn, (Reported) Entered as Reported by: BIBIANA PORTILLO on 06/10/20 050 Last Action: Reviewed on 09/19/201427 by ROSA ELENA RUTLEDGE Ferrous Sulfate (Ferrous Sulfate) 325 Mg Tablet, 1 TAB PO DAILY for iron, #30 Ref 3 (Reported) Entered as Reported by: BIBIANA PORTILLO on 06/10/20 050 Last Action: Reviewed on 09/19/201427 by ROSA ELENA RUTLEDGE Finasteride (Finasteride) 5 Mg Tablet, 1 TAB PO DAILY for prostate, #30 Ref 11 (Reported) Entered as Reported by: BIBIANA PORTILLO on 06/10/20501 Last Action: Reviewed on 09/19/201427 by ROSA ELENA RUTLEDGE Lactobacillus Rhamnosus Gg (Culturelle) 1 Each Cap.sprink, 1 CAP PO BID for Diar slick for 10 Days, #20 Prescribed by: JETT BABB MD on 09/28/20 1154 Lisinopril (Lisinopril) 40 Mg Tablet, 1 TAB PO DAILY for htn, #30 Ref 5 (Reported) Entered as Reported by: BIBIANA PORTILLO on 06/10/20508 Last Action: Continued on 09/22/20 1259 by SHERITA HAMILTON APRN Multivitamin/Iron/Folic Acid (Centrum Complete Multivit Tab) 1 Each Tablet, 1 EACH PO DAILY, (Reported) Entered as Reported by: RAYMOND EPPS on 11/11/151622 Last Action: Reviewed on 09/19/20 142 by ROSA ELENA RUTLEDGE Simvastatin (Simvastatin) 20 Mg Tablet, 1 TAB PO QHS, #30 Ref 5 (Reported) Entered as Reported by: RAYMOND EPPS on 11/11/151622 Last Action: Continued on 09/21/20 1505 by SHERITA HAMILTON APRN Tamsulosin Hcl (Flomax) 0.4 Mg Cap.er.24h, 1 CAP PO DAILY for bph, #30 Ref 11 (Reported) Entered as Reported by: BIBIANA PORTILLO on 06/10/20 050 Last Action: Reviewed on 09/19/201427 by ROSA ELENA RUTLEDGE Vits A and D/White Pet/Lanolin (A and D Ointment) 42.5 Gm Oint...g., 42.5 GM TP BID for sacral wound, (Reported) Entered as Reported by: ROSA ELENA RUTLEDGE on 09/19/201423 Last Action: New Order on 09/19/201423 by ROSA ELENA RUTLEDGE Scheduled PRN Acetaminophen (Tylenol) 325 Mg Tablet, 500 MG PO PRN Q6HRS PRN for MILD PAIN / TEMP > 100.3'F, (Reported) Entered as Reported by: RAYMOND EPPS on 11/11/15 1623 Last Action: Reviewed on 09/19/201429 by ROSA ELENA RUTLEDGE Bisacodyl (Bisacodyl) 10 Mg Supp.rect, 10 MG RC PRN DAILY PRN for CONSTIPATION, Ref 0 (Reported) Entered as Reported by: ROSA ELENA RUTLEDGE on 09/19/201423 Last Action: New Order on 09/19/201423 by ROSA ELENA RUTLEDGE Dextran 70/Hypromellose (Artificial Tears Eye Drops) 15 Ml Drops, 1 DROP EACHEYE PRN QID PRN for DRY EYE, #30 Ref 0 (Reported) Entered as Reported by: ROSA ELENA RUTLEDGE on 09/19/201423 Last Action: New Order on 09/19/201423 by ROSA ELENA RUTLEDGE Fluticasone Propionate (Flonase Allergy Relief) 9.9 Ml [place].susp, 1 SPRAYS NS DAILY PRN for ALLERGIES, (Reported) Entered as Reported by: BIBIANA PORTILLO on 06/10/20501 Last Action: Reviewed on 09/19/201427 by ROSA ELENA RUTLEDGE Magnesium Hydroxide (Milk Of Magnesia) 400 Mg/5 Ml Oral.susp, 400 MG PO PRN DAILY PRN for CONSTIPATION, (Reported) Entered as Reported by: ROSA ELENA RUTLEDGE on 09/19/201427 Last Action: New Order on 09/19/201427 by ROSA ELENA RUTLEDGE Ondansetron Hcl (Ondansetron Hcl) 4 Mg Tablet, 8 MG PO PRN Q8HRS PRN for NAUSEA/VOMITING, (Reported) Entered as Reported by: ROSA ELENA RUTLEDGE on 09/19/201427 Last Action: New Order on 09/19/201427 by ROSA ELENA RUTLEDGE Polyethylene Glycol 3350 (Miralax) 17 Gm Powd.pack, 1 PACKET PO DAILY PRN for CONSTIPATION for 2 Days, #2 Ref 0 (Reported) dissolve in water Entered as Reported by: BIBIANA PORTILLO on 06/10/20 0509 Last Action: Reviewed on 09/19/201427 by ROSA ELENA RUTLEDGE Discontinued Medications Hydrochlorothiazide (Hydrochlorothiazide Tablet ) 25 Mg Tablet, 1 TAB PO D AILY, #30 Ref 5 (Reported) Entered as Reported by: RAYMOND EPPS on 11/11/15 1623 Last Action: Reviewed on 09/19/201427 by ROSA ELENA RUTLEDGE Potassium Chloride (Klor-Con M20) 20 Meq Tab.er.prt, 20 MEQ PO DAILY for supp, (Reported) Entered as Reported by: ROSA ELENA RUTLEDGE on 09/19/20 143 Last Action: New Order on 09/19/201429 by ROSA ELENA RUTLEDGE Justicifation of Admission Dx: Justifications for Admission: Justification of Admission Dx: Yes JETT BABB MD Sep 28, 2020 13:39
[2020-09-28] MEDS ORDERED: SODIUM CHL/ALOE VERA NASAL GEL 14.1GM TUBE. NS PRN (13:45)
[2020-09-28] MEDS ORDERED: POLYVINYL ALCOHOL 1.4% OPHTH SOLUTION 15ML BOTTLE. OU PRN (13:45)
[2020-09-28 15:00] VITALS: BP 154/69
--- NOTE | 2020-09-28 17:15 | NUR ---
Pt left unit at approx 1712 by stretcher via transportation. IV removed without complication, VSS. Discharge paperwork and belongings sent with pt at time of discharge. This RN called report to NOEMI [facility] of [place] at [phone]. eugene Gan notified of transfer at [phone]. Addendum: 09/28/20 at 1730 by NUZHAT KAUR RN Add to previous: Cyndi remains in place.
== END 2020-09-28 17:29 | DRG 871 ==
LOC: ER 21:33 → ED HOLD 09-19 01:25 → 1 WEST ICU 09-19 02:54 → ED HOLD 09-19 11:36 → 2 NORTH 09-19 12:14 → 1 WEST ICU 09-19 20:25 → 6 SOUTH 09-23 20:18
PROVIDERS: ADMIT Internal Medicine; ATTEND Internal Medicine
DX: A41.50 Gram-negative sepsis, unspecified (principal); E43 Unspecified severe protein-calorie malnutrition; U07.1 COVID-19; E87.1 Hypo-osmolality and hyponatremia; N13.6 Pyonephrosis; D63.8 Anemia in other chronic diseases classified elsewhere; D72.828 Other elevated white blood cell count; E27.8 Other specified disorders of adrenal gland; E78.00 Pure hypercholesterolemia, unspecified; E78.5 Hyperlipidemia, unspecified; I12.9 Hypertensive chronic kidney disease with stage 1 through stage 4 chronic kidney disease, or unspecified chronic kidney disease; I48.0 Paroxysmal atrial fibrillation; K80.20 Calculus of gallbladder without cholecystitis without obstruction; N18.9 Chronic kidney disease, unspecified; N32.0 Bladder-neck obstruction; N40.0 Benign prostatic hyperplasia without lower urinary tract symptoms; Z66 Do not resuscitate; K21.9 Gastro-esophageal reflux disease without esophagitis; M19.90 Unspecified osteoarthritis, unspecified site; Z68.24 Body mass index [BMI] 24.0-24.9, adult
CPT/HCPCS: 96365; 96375; 99285; C8929; 36415; 51798; 71045; 74177; 76770; 80048; 80053; 80061; 81001; 82533; 82962; 83605; 83690; 83735; 84100; 84443; 84484; 85007; 85025; 87040; 87077; 87086; 87186; 87205; 93005; 94640; 94760; C9113; J0696; J1650; J2060; J2270; J2405; J2543; J3490; J7030; J7060; Q9967; U0003; 97110-GO; 97110-GP; 97530-GO; 97530-GP; 97535-GO; G0378